=== PATIENT | female | born 1965 | race Caucasian/White ===

== ENCOUNTER 2016-07-08 11:03 | Inpatient (IN) | payer OTHER ==
[2016-07-08 12:15] VITALS: BMI 32.3
--- NOTE | 2016-07-08 14:24 | HP ---
COWS - Scale Resting Pulse: 2= [place] 101-120 Sweatin=Flushed/Facial Moisture Restless Observation: 3= Extraneous Movement Pupil Size: 2= Moderately Dilated Bone or Joint Aches: 2= Severe Diffuse Aches Runny Nose/ Eye Tearin= Runny Nose/Eyes GI Upset > 30mins: 3= Vomiting/Diarrhea Tremor Observation: 2= Slight Tremor Visible Yawning Observation: 2= >3x During Session Anxiety or Irritability: 2=Irritable/Anxious Goose Flesh Skin: 0=Smooth Skin COWS Score: 22 CIWA Score - CIWA Score Nausea/Vomitin Muscle Tremors: 3 Anxiety: 3 Agitation: 3 Paroxysmal Sweats: 2 Orientation: 0-Oriented Tacttile Disturbances: 2-Mild Itch/Numbness/Burn Auditory Disturbances: 2-Mild Harshness/Frighten Visual Disturbances: 2-Mild Sensitivity Headache: 2-Mild CIWA-Ar Total Score: 22 Admission ROS BHS - HPI Chief Complaint: I NEED HELP TO STOP USING HEROIN,ALCOHOL AND COCAINE Allergies/Adverse Reactions: Allergies Allergy/AdvReac Type Severity Reaction Status Date / Time Fish Containing Products Allergy Severe Hives Verified 07/08/16 13:04 No Known Drug Allergies Allergy Severe Verified 07/08/16 13:04 History of Present Illness: THIS 51 YEARS OLD FEMALE WITH HEROIN ALCOHOL COCAINE DEPENDENCE,WITHDRAWAL SYMPTOM,LAST DETOX 06/10/16 TO 06/16/16 SEIZURE SYNCOPE NICOTINE DEPENDENCE BIPOLAR DISORDER,SCHIZOPHRENIA LONGEST PERIOD OF SOBRIETY 5 YEARS TYPE 2 DM Exam Limitations: No Limitations - Ebola screening Have you traveled outside of the country in the last 21 days: No Have you had contact with anyone from an Ebola affected area: No Have you been sick,other than usual withdrawal symptoms: No Do you have a fever: No - Review of Systems Constitutional: Loss of Appetite, Malaise, Night Sweats, Changes in sleep, Weakness EENT: reports: Tearing, Nose Congestion Respiratory: reports: No Symptoms reported Cardiac: reports: Palpitations GI: reports: Diarrhea, Nausea, Vomiting, Abdominal cramping : reports: No Symptoms Reported Musculoskeletal: reports: Back Pain, Joint Pain, Muscle Pain, Neck Pain Integumentary: reports: Dryness Neuro: reports: Headache, Tremors Endocrine: reports: No Symptoms Reported Hematology: reports: No Symptoms Reported Psychiatric: reports: Orientated x3 (BIPOLAR DISORDER), Agitated, Depressed Patient History - Patient Medical History Hx Anemia: No Hx Asthma: Yes (Pt is on MDI) Hx Chronic Obstructive Pulmonary Disease (COPD): No Hx Cancer: No Hx Cardiac Disorders: No Hx Congestive Heart Failure: No Hx Hypertension: Yes (on meds.) Hx Hypercholesterolemia: No Hx Pacemaker: No HX Cerebrovascular Accident: No Hx Seizures: Yes (drug related last in 2006) Hx Dementia: No Hx Diabetes: Yes (Type II) Hx Gastrointestinal Disorders: No Hx Liver Disease: No Hx Genitourinary Disorders: No Hx Sexually Transmitted Disorders: Yes (Pt was tx for syphillis.) Hx Renal Disease (ESRD): No Hx Thyroid Disease: No Hx Human Immunodeficiency Virus (HIV): No (2016 last negative) Hx Hepatitis C: No Hx Depression: Yes Hx Suicide Attempt: Yes (Tried to cut wrist in 2014) Hx Bipolar Disorder: No Hx Schizophrenia: No Other Medical History: NO SUICIDAL,NO HOMICIDAL - Patient Surgical History Past Surgical History: Yes Hx Cholecystectomy: Yes Other Surgical History: Tubal ligation - PPD History Previous Implant?: Yes Documented Results: Negative w/proof Date: 06/12/16 Results: 0 mm PPD to be Administered?: No - Reproductive History Patient is a Female of Child Bearing Age (11 -55 yrs old): Yes Patient : No - Smoking Cessation Smoking history: Current every day smoker Have you smoked in the past 12 months: Yes Aproximately how many cigarettes per day: 5 Cigars Per Day: 0 Hx Chewing Tobacco Use: No Initiated information on smoking cessation: Yes 'Breaking Loose' booklet given: 07/08/16 - Substance & Tx. History Hx Alcohol Use: Yes Hx Substance Use: Yes Substance Use Type: Alcohol, Cocaine, Heroin Hx Substance Use Treatment: Yes ([facility] 06/10/16 TO 06/16/16) - Substances Abused Heroin Route: Inhalation Frequency: Daily Amount used: 30 bags Age of first use: 31 Date of Last Use: 07/07/16 Alcohol Route: Oral Frequency: Daily Amount used: 2 pints chris or cognac Age of first use: 21 Date of Last Use: 07/06/16 Crack Route: Smoking Frequency: Daily Amount used: $400 Age of first use: 20 Date of Last Use: 07/08/16 Family Disease History - Family Disease History Family History: Denies Admission Physical Exam BHS - Vital Signs Vital Signs: Vital Signs - 24 hr 07/08/16 12:12 Temperature 97 F L Pulse Rate 106 H Respiratory 19 Rate Blood Pressure 164/94 - Physical General Appearance: Yes: Moderate Distress, Tremorous, Irritable, Sweating, Anxious HEENTM: Yes: Hearing grossly Normal, Normal ENT Inspection, ISSAC, Pharynx Normal Respiratory: Yes: Lungs Clear, Normal Breath Sounds, No Respiratory Distress Neck: Yes: Supple, Trachea in good position Breast: Yes: Breast Exam Deferred Cardiology: Yes: Within Normal Limits, Regular Rhythm, Regular Rate, S1, S2 Abdominal: Yes: Within Normal Limits, Normal Bowel Sounds, Non Tender, Flat, Soft Genitourinary: Yes: Within Normal Limits Back: Yes: Muscle Spasm Musculoskeletal: Yes: Back pain, Joint Stiffness, Muscle Pain Extremities: Yes: Normal Range of Motion, Tremors Neurological: Yes: online marketer II-XII NML intact, Alert, Motor Strength 5/5, Normal Mood /Affect Integumentary: Yes: Dry Lymphatic: Yes: Within Normal Limits - Diagnostic (1) Insomnia Current Visit: No Status: Acute (2) Alcohol dependence with uncomplicated withdrawal Current Visit: No Status: Chronic (3) Asthma Current Visit: No Status: Chronic Qualifiers: Asthma complication type: uncomplicated (4) Cocaine dependence Current Visit: No Status: Chronic Qualifiers: Complication of substance-induced condition: with unspecified complication (5) DM2 (diabetes mellitus, type 2) Current Visit: No Status: Chronic Qualifiers: Chronic kidney disease stage: unspecified stage (6) Essential hypertension Current Visit: No Status: Chronic (7) Nicotine dependence Current Visit: No Status: Chronic Qualifiers: Nicotine product type: cigarettes Substance use status: uncomplicated Qualified Code(s): F17.210 - Nicotine dependence, cigarettes, uncomplicated (8) Opioid dependence with withdrawal Current Visit: No Status: Chronic (9) Seizure Current Visit: No Status: Chronic (10) Post traumatic stress disorder (PTSD) Current Visit: No Status: Suspected (11) Bipolar disorder Current Visit: Yes Status: Acute Cleared for Admission [facility] - Detox or Rehab [facility] Level of Care: Medically Managed Detox Regimen/Protocol: Methadone/Valium [facility] Breath Alcohol Content Breath Alcohol Content: 0 Urine Pregancy Test - Result Urine Test Results: Negative- NO Line Present Urine Drug Screen - Results Drug Screen Negative: No Urine Drug Screen Results: LOLLY-Cocaine, OPI-Opiates, BZO-Benzodiazepines, TCA- Tricyclic Antidepress
[2016-07-08] MEDS ORDERED: MAG HYDROX/AL HYDROX/SIMETH 30 ML UNIT-DOSE CUP PO PRN (14:41)
[2016-07-08] MEDS ORDERED: MENTHOL/PHENOL 1 EACH UD MM PRN (14:41)
[2016-07-08] MEDS ORDERED: P-EPHED 60MG/TRIPROLIDI 2.5MG TABLET PO PRN (14:41)
[2016-07-08] MEDS ORDERED: LOPERAMIDE HCL 2 MG CAPSULE PO PRN (14:41)
[2016-07-08] MEDS ORDERED: diphenhydrAMINE HCL 50 MG CAPSULE PO PRN (14:41)
[2016-07-08] MEDS ORDERED: IBUPROFEN 400 MG TABLET (FP) PO PRN (14:41)
[2016-07-08] MEDS ORDERED: diazePAM 5 MG TABLET PO ONE (14:48)
[2016-07-08] MEDS ORDERED: METHADONE HCL 10 MG TABLET (FOR DETOX USE ONLY) PO ONE ×2 (14:51→23:00)
[2016-07-08] MEDS: diazePAM 5 MG TABLET PO PRN (20:04)
[2016-07-08 21:33] LABS: URINE APPEARANCE CLOUDY; URINE BILIRUBIN NEGATIVE (NEGATIVE); URINE BLOOD NEGATIVE (NEGATIVE); URINE COLOR YELLOW; URINE GLUCOSE (UA) 1+ (NEGATIVE); URINE KETONE NEGATIVE (NEGATIVE); URINE NITRITE NEGATIVE (NEGATIVE); URINE UROBILINOGEN NEGATIVE E.U./dl (0.2-1.0)
[2016-07-08 21:38] LABS: URINE LEUK ESTERASE 1+ (NEGATIVE); URINE PROTEIN 1+ (NEGATIVE)
[2016-07-08 21:41] LABS: URINE BACTERIA RARE /hpf (NONE SEEN); URINE MUCUS RARE; URINE RBC 2 /hpf (0-3); URINE WBC 5 /hpf (3-5)
[2016-07-08] MEDS: THIAMINE HCL 100 MG TABLET (FP) PO SCH (22:14)
[2016-07-08] MEDS: diazePAM 5 MG TABLET PO SCH (22:14)
[2016-07-09] MEDS: diazePAM 5 MG TABLET PO PRN ×2 (03:34→10:07)
[2016-07-09] MEDS: MAGNESIUM HYDROX 2400MG/30ML ORAL SUSPENSION 30 ML CUP PO PRN (03:36)
[2016-07-09 05:17] LABS: HIV 1 & 2 AB NEGATIVE; HIV 1 AGp24 NEGATIVE
[2016-07-09] MEDS: guaiFENesin/D-METHORPHAN HB 10 ML UNIT-DOSE CUPS PO PRN (05:53)
[2016-07-09] MEDS: diazePAM 5 MG TABLET PO SCH ×3 (05:53→22:15)
[2016-07-09] MEDS: metFORMIN HCL 500 MG TABLET (FP) PO SCH (06:41)
--- NOTE | 2016-07-09 09:21 | EKG ---
Test Reason : Blood Pressure : / mmHG Vent. Rate : 096 BPM Atrial Rate : 096 BPM P-R Int : 142 ms QRS Dur : 088 ms QT Int : 370 ms P-R-T Axes : -08 041 023 degrees QTc Int : 467 ms UNUSUAL P AXIS, POSSIBLE ECTOPIC ATRIAL RHYTHM WHEN COMPARED WITH ECG OF 10-JUN-2016 17:28, NO SIGNIFICANT CHANGE WAS FOUND Confirmed by MARICRUZ BARRAZA MD ([id number]) on 07/09/2016 9:21:29 AM Referred By: Confirmed By:MARICRUZ BARRAZA MD
[2016-07-09] MEDS ORDERED: METHADONE HCL 10 MG TABLET (FOR DETOX USE ONLY) PO SCH (10:00)
[2016-07-09 10:01] LABS: MCH 28.3 pg (25.7-33.7); MCHC 33.4 g/dl (32.0-36.0); MEAN CELL VOLUME 84.6 fl (80-96); MEAN PLT VOLUME 7.8 fl (7.5-11.1); PLATELET COUNT 366 K/MM3 (134-434); RDW 14.5 % (11.6-15.6); WHITE BLOOD COUNT 7.7 K/mm3 (4.0-10.0)
[2016-07-09] MEDS: ASPIRIN 81 MG CHEWABLE TABLETS PO SCH (10:03)
[2016-07-09] MEDS: LISINOPRIL 10 MG TABLET (FP) PO SCH (10:03)
[2016-07-09] MEDS: PRENATAL VITAMINS W/ FOLIC ACID TABLET (FP) PO SCH (10:03)
[2016-07-09] MEDS: FLUTICASONE PROP 0.05% 16 GM NASAL SPRAY NS SCH (10:03)
--- NOTE | 2016-07-09 10:06 | PN ---
S CIWA - CIWA Score Nausea/Vomitin Muscle Tremors: 3 Anxiety: 3 Agitation: 3 Paroxysmal Sweats: 1-Minimal Palms Moist Orientation: 0-Oriented Tacttile Disturbances: 1-Very Mild Itch/Numbness Auditory Disturbances: 1-Very Mild Visual Disturbances: 1-Very Mild Sensitivity Headache: 2-Mild CIWA-Ar Total Score: 18 BHS COWS - Scale Resting Pulse: 2= [place] 101-120 Sweatin= Chills/Flushing Restless Observation: 3= Extraneous Movement Pupil Size: 1= Pupils >than Normal Bone or Joint Aches: 2= Severe Diffuse Aches Runny Nose/ Eye Tearin= Runny Nose/Eyes GI Upset > 30mins: 3= Vomiting/Diarrhea Tremor Observation of Outstretched Hands: 2= Slight Tremor Visible Yawning Observation: 1= 1-2x During Session Anxiety or Irritability: 2=Irritable/Anxious Goose Flesh Skin: 0=Smooth Skin COWS Score: 19 S Progress Note (SOAP) Subjective: ALERT,IRRITABLE,ANXIOUS,INTERRUPTED SLEEP,PAIN IN THE BODY AND BACK Objective: 07/09/16 10:03 Vital Signs Temperature 98.4 F 07/09/16 09:40 Pulse Rate 111 H 07/09/16 09:40 Respiratory Rate 16 07/09/16 09:40 Blood Pressure 119/72 07/09/16 09:40 O2 Sat by Pulse Oximetry (%) EKG NSR,NORMAL ECG Laboratory Last Values POC Glucometer 161 UNITS (()) 07/09/16 05:52 Urine Color Yellow 07/08/16 16:00 Urine Appearance Cloudy 07/08/16 16:00 Urine pH 5.0 (5.0-8.0) 07/08/16 16:00 Ur Specific [place] 1.027 (1.001-1.035) 07/08/16 16:00 Urine Protein 1+ (NEGATIVE) H 07/08/16 16:00 Urine Glucose (UA) 1+ (NEGATIVE) H 07/08/16 16:00 Urine Ketones Negative (NEGATIVE) 07/08/16 16:00 Urine Blood Negative (NEGATIVE) 07/08/16 16:00 Urine Nitrite Negative (NEGATIVE) 07/08/16 16:00 Urine Bilirubin Negative (NEGATIVE) 07/08/16 16:00 Urine Urobilinogen Negative E.U./dl (0.2-1.0) 07/08/16 16:00 Ur Leukocyte Esterase 1+ (NEGATIVE) H 07/08/16 16:00 Urine RBC 2 /hpf (0-3) 07/08/16 16:00 Urine WBC 5 /hpf (3-5) 07/08/16 16:00 Ur Epithelial Cells Moderate /hpf (FEW) 07/08/16 16:00 Urine Bacteria Rare /hpf (NONE SEEN) 07/08/16 16:00 Urine Mucus Rare 07/08/16 16:00 HIV 1&2 Antibody Screen Negative 07/08/16 13:00 HIV P24 Antigen Negative 07/08/16 13:00 LABS PENDING Assessment: 07/09/16 10:05 WITHDRAWAL SYMPTOM Plan: CONTINUE DETOX
--- NOTE | 2016-07-09 10:07 | PN ---
S Progress Note Note: ADDENDUM BGM IS 161,BGM MONITORING
[2016-07-09] MEDS: ALBUTEROL SO4 6.7 GM HFA INHALER IH PRN (10:09)
[2016-07-09 10:17] LABS: ALBUMIN 3.8 g/dl (3.4-5.0); ANION GAP 11 (8-16); CALCIUM 9.9 mg/dL (8.5-10.1); CO2 28 mmol/L (21-32); GLUCOSE,RANDOM 178 mg/dL (74-106); SGOT/AST 9 U/L (15-37); SGPT/ALT 16 U/L (12-78)
[2016-07-09 10:19] LABS: ALK PHOS 96 U/L (45-117); BILIRUBIN,TOTAL 0.3 mg/dL (0.2-1.0); CREATININE 0.8 mg/dL (0.55-1.02); TOT PROT 8.1 g/dl (6.4-8.2)
[2016-07-09] MEDS: DOCUSATE SODIUM 100 MG CAPSULE (FP) PO SCH ×2 (14:44→22:15)
[2016-07-09] MEDS: CYCLOBENZAPRINE HCL 10 MG TABLET (FP) PO PRN (14:44)
[2016-07-09] MEDS: HYDROCORTISONE 1% TOPICAL CREAM 30 GM TUBE TP SCH ×2 (14:45→22:16)
[2016-07-09] MEDS: MAGNESIUM CITRATE 300 ML BOTTLE PO PRN (14:48)
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
[2016-07-09] MEDS: hydrOXYzine PAMOATE 50 MG CAPSULE (FP) PO PRN (16:37)
[2016-07-09] MEDS: THIAMINE HCL 100 MG TABLET (FP) PO SCH (22:15)
[2016-07-09] MEDS: ZOLPIDEM TARTRATE 10 MG TABLET (PARK CARE ONLY) PO PRN (22:18)
[2016-07-10] MEDS: DOCUSATE SODIUM 100 MG CAPSULE (FP) PO SCH ×3 (05:56→22:31)
[2016-07-10] MEDS: diazePAM 5 MG TABLET PO PRN ×2 (05:58→15:37)
[2016-07-10] MEDS: guaiFENesin/D-METHORPHAN HB 10 ML UNIT-DOSE CUPS PO PRN ×2 (05:58→15:40)
[2016-07-10] MEDS: ALBUTEROL SO4 6.7 GM HFA INHALER IH PRN (06:00)
[2016-07-10] MEDS: HYDROCORTISONE 1% TOPICAL CREAM 30 GM TUBE TP SCH ×3 (07:33→22:31)
[2016-07-10] MEDS: metFORMIN HCL 500 MG TABLET (FP) PO SCH (07:34)
[2016-07-10] MEDS ORDERED: ONDANSETRON *ODT* 4 MG TABLET SL PRN (10:09)
[2016-07-10] MEDS: ASPIRIN 81 MG CHEWABLE TABLETS PO SCH (10:28)
[2016-07-10] MEDS: diazePAM 5 MG TABLET PO SCH ×2 (10:28→22:31)
[2016-07-10] MEDS: PRENATAL VITAMINS W/ FOLIC ACID TABLET (FP) PO SCH (10:28)
[2016-07-10] MEDS: FLUTICASONE PROP 0.05% 16 GM NASAL SPRAY NS SCH (10:29)
[2016-07-10] MEDS: METHADONE HCL 5 MG TABLET (FOR DETOX USE ONLY) PO SCH (10:29)
[2016-07-10] MEDS: LISINOPRIL 10 MG TABLET (FP) PO SCH (10:30)
[2016-07-10] MEDS: METHYL SALICYLATE/MENTHOL OINT 30 GM TUBE TP SCH ×2 (10:34→22:31)
[2016-07-10] MEDS: CYCLOBENZAPRINE HCL 10 MG TABLET (FP) PO PRN ×2 (10:37→22:35)
--- NOTE | 2016-07-10 14:26 | PN ---
[facility] CIWA - CIWA Score Nausea/Vomitin Muscle Tremors: 4-Moderate,w/Arms Extend Anxiety: 3 Agitation: 4-Moderately Restless Paroxysmal Sweats: 3 Orientation: 0-Oriented Tacttile Disturbances: 0-None Auditory Disturbances: 2-Mild Harshness/Frighten Visual Disturbances: 2-Mild Sensitivity Headache: 0-None Present CIWA-Ar Total Score: 21 S COWS - Scale Resting Pulse: 2= [place] 101-120 Sweatin= Chills/Flushing Restless Observation: 1= Difficult to Sit Still Pupil Size: 0= Normal to Room Light Bone or Joint Aches: 2= Severe Diffuse Aches Runny Nose/ Eye Tearin= Nasal Congestion GI Upset > 30mins: 2= Nausea/Diarrhea Tremor Observation of Outstretched Hands: 2= Slight Tremor Visible Yawning Observation: 1= 1-2x During Session Anxiety or Irritability: 2=Irritable/Anxious Goose Flesh Skin: 3=Piloerection COWS Score: 17 [facility] Progress Note (SOAP) Subjective: Nausea, Interrupted sleep, Tremors, Sweating, Body Aches. Objective: PT. A & O X 3, OBSERVED AMBULATING ON UNIT. 07/10/16 14:23 Vital Signs Temperature 96.5 F L 07/10/16 14:11 Pulse Rate 115 H 07/10/16 14:11 Respiratory Rate 18 07/10/16 14:11 Blood Pressure 133/83 07/10/16 14:11 O2 Sat by Pulse Oximetry (%) Laboratory Last Values WBC 7.7 K/mm3 (4.0-10.0) 07/09/16 06:00 RBC 4.96 M/mm3 (3.60-5.2) 07/09/16 06:00 Hgb 14.0 GM/dL (10.7-15.3) D 07/09/16 06:00 Hct 42.0 % (32.4-45.2) 07/09/16 06:00 MCV 84.6 fl (80-96) 07/09/16 06:00 MCHC 33.4 g/dl (32.0-36.0) 07/09/16 06:00 RDW 14.5 % (11.6-15.6) 07/09/16 06:00 Plt Count 366 K/MM3 (134-434) 07/09/16 06:00 MPV 7.8 fl (7.5-11.1) 07/09/16 06:00 Sodium 140 mmol/L (136-145) 07/09/16 06:00 Potassium 4.1 mmol/L (3.5-5.1) 07/09/16 06:00 Chloride 101 mmol/L (98-107) 07/09/16 06:00 Carbon Dioxide 28 mmol/L (21-32) 07/09/16 06:00 Anion Gap 11 (8-16) 07/09/16 06:00 BUN 14 mg/dL (7-18) D 07/09/16 06:00 Creatinine 0.8 mg/dL (0.55-1.02) 07/09/16 06:00 Creat Clearance w eGFR > 60 (>60) 07/09/16 06:00 POC Glucometer 224 UNITS (()) 07/10/16 11:46 Random Glucose 178 mg/dL (74-106) H D 07/09/16 06:00 Calcium 9.9 mg/dL (8.5-10.1) 07/09/16 06:00 Total Bilirubin 0.3 mg/dL (0.2-1.0) 07/09/16 06:00 AST 9 U/L (15-37) L D 07/09/16 06:00 ALT 16 U/L (12-78) 07/09/16 06:00 Alkaline Phosphatase 96 U/L (45-117) 07/09/16 06:00 Total Protein 8.1 g/dl (6.4-8.2) 07/09/16 06:00 Albumin 3.8 g/dl (3.4-5.0) 07/09/16 06:00 Urine Color Yellow 07/08/16 16:00 Urine Appearance Cloudy 07/08/16 16:00 Urine pH 5.0 (5.0-8.0) 07/08/16 16:00 Ur Specific [place] 1.027 (1.001-1.035) 07/08/16 16:00 Urine Protein 1+ (NEGATIVE) H 07/08/16 16:00 Urine Glucose (UA) 1+ (NEGATIVE) H 07/08/16 16:00 Urine Ketones Negative (NEGATIVE) 07/08/16 16:00 Urine Blood Negative (NEGATIVE) 07/08/16 16:00 Urine Nitrite Negative (NEGATIVE) 07/08/16 16:00 Urine Bilirubin Negative (NEGATIVE) 07/08/16 16:00 Urine Urobilinogen Negative E.U./dl (0.2-1.0) 07/08/16 16:00 Ur Leukocyte Esterase 1+ (NEGATIVE) H 07/08/16 16:00 Urine RBC 2 /hpf (0-3) 07/08/16 16:00 Urine WBC 5 /hpf (3-5) 07/08/16 16:00 Ur Epithelial Cells Moderate /hpf (FEW) 07/08/16 16:00 Urine Bacteria Rare /hpf (NONE SEEN) 07/08/16 16:00 Urine Mucus Rare 07/08/16 16:00 RPR Titer Nonreactive (NONREACTIVE) 07/09/16 06:00 HIV 1&2 Antibody Screen Negative 07/08/16 13:00 HIV P24 Antigen Negative 07/08/16 13:00 LABS NOTED. Assessment: 07/10/16 14:24 WITHDRAWAL SYMPTOMS. Plan: CONTINUE DETOX. PRN FLEXERIL FOR FOR BODY ACHES / MUSCLE SPASMS. PRN ZOFRAN FOR NAUSEA. ADVISED PATIENT TO FOLLOW-UP WITH [facility] / REHAB MEDICAL PROVIDER AFTER DISCHARGE FROM DETOX FOR GENERAL MEDICAL ASSESSMENT AND FOR ABNORMAL ADMISSION LAB VALUES.
[2016-07-10] MEDS ORDERED: INSULIN (NOVOLOG) ASPART 100 UNITS/ML 10ML VIAL ONE (16:34)
[2016-07-10] MEDS ORDERED: INSULIN (NOVOLOG) ASPART 100 UNITS/ML 10ML VIAL SQ ONE (18:37)
--- NOTE | 2016-07-10 19:30 | PN ---
S Progress Note Note: According to nurse BGM was 388 at 4:30PM now it's 221 without intervention. Cancel novolog 6 units sc stat
[2016-07-10] MEDS: hydrOXYzine PAMOATE 50 MG CAPSULE (FP) PO PRN (21:09)
[2016-07-10] MEDS: THIAMINE HCL 100 MG TABLET (FP) PO SCH (22:31)
[2016-07-10] MEDS: ZOLPIDEM TARTRATE 10 MG TABLET (PARK CARE ONLY) PO PRN (22:35)
[2016-07-11] MEDS: DOCUSATE SODIUM 100 MG CAPSULE (FP) PO SCH ×3 (06:03→22:18)
[2016-07-11] MEDS: diazePAM 5 MG TABLET PO PRN ×2 (06:07→12:48)
[2016-07-11] MEDS: CYCLOBENZAPRINE HCL 10 MG TABLET (FP) PO PRN ×2 (06:07→22:18)
[2016-07-11] MEDS: metFORMIN HCL 500 MG TABLET (FP) PO SCH (07:14)
[2016-07-11] MEDS: INSULIN SLIDING SCALE (NOVOLOG) 1 VIAL SQ SCH ×2 (07:15→18:09)
[2016-07-11] MEDS: HYDROCORTISONE 1% TOPICAL CREAM 30 GM TUBE TP SCH ×3 (07:15→22:19)
[2016-07-11] MEDS: MAGNESIUM HYDROX 2400MG/30ML ORAL SUSPENSION 30 ML CUP PO PRN (07:21)
[2016-07-11] MEDS: ASPIRIN 81 MG CHEWABLE TABLETS PO SCH (10:27)
[2016-07-11] MEDS: PRENATAL VITAMINS W/ FOLIC ACID TABLET (FP) PO SCH (10:27)
[2016-07-11] MEDS: METHADONE HCL 5 MG TABLET (FOR DETOX USE ONLY) PO SCH (10:28)
[2016-07-11] MEDS: METHYL SALICYLATE/MENTHOL OINT 30 GM TUBE TP SCH ×2 (10:28→22:19)
[2016-07-11] MEDS: FLUTICASONE PROP 0.05% 16 GM NASAL SPRAY NS SCH (10:29)
[2016-07-11] MEDS: LISINOPRIL 10 MG TABLET (FP) PO SCH (10:30)
[2016-07-11] MEDS: diazePAM 5 MG TABLET PO SCH ×2 (10:33→22:20)
--- NOTE | 2016-07-11 14:02 | PN ---
S Progress Note (SOAP) Subjective: Anxious, pain in arms (stated due to arthritis), interrupted sleep, sweating, constipation (no bm x 4 days), stomach ache, itching on arms (wants benadryl 50mg for itch, states hydrocortisone not working) Objective: 07/11/16 13:57 Last Vital Signs Temp Pulse Resp BP Pulse Ox 97.7 F 110 H 18 145/74 07/11/16 13:48 07/11/16 13:48 07/11/16 13:48 07/11/16 13:48 Laboratory Tests 07/08/16 07/08/16 07/08/16 13:00 13:21 16:00 WBC RBC Hgb Hct MCV MCHC RDW Plt Count MPV Sodium Potassium Chloride Carbon Dioxide Anion Gap BUN Creatinine Creat Clearance w eGFR POC Glucometer 189 Random Glucose Calcium Total Bilirubin AST ALT Alkaline Phosphatase Total Protein Albumin Urine Color Yellow Urine Appearance Cloudy Urine pH 5.0 Ur Specific [place] 1.027 Urine Protein 1+ H Urine Glucose (UA) 1+ H Urine Ketones Negative Urine Blood Negative Urine Nitrite Negative Urine Bilirubin Negative Urine Urobilinogen Negative Ur Leukocyte Esterase 1+ H Urine RBC 2 Urine WBC 5 Ur Epithelial Cells Moderate Urine Bacteria Rare Urine Mucus Rare RPR Titer HIV 1&2 Antibody Screen Negative HIV P24 Antigen Negative 07/09/16 07/09/16 07/09/16 05:52 06:00 06:00 WBC 7.7 RBC 4.96 Hgb 14.0 D Hct 42.0 MCV 84.6 MCHC 33.4 RDW 14.5 Plt Count 366 MPV 7.8 Sodium 140 Potassium 4.1 Chloride 101 Carbon Dioxide 28 Anion Gap 11 BUN 14 D Creatinine 0.8 Creat Clearance w eGFR > 60 POC Glucometer 161 Random Glucose 178 H D Calcium 9.9 Total Bilirubin 0.3 AST 9 L D ALT 16 Alkaline Phosphatase 96 Total Protein 8.1 Albumin 3.8 Urine Color Urine Appearance Urine pH Ur Specific [place] Urine Protein Urine Glucose (UA) Urine Ketones Urine Blood Urine Nitrite Urine Bilirubin Urine Urobilinogen Ur Leukocyte Esterase Urine RBC Urine WBC Ur Epithelial Cells Urine Bacteria Urine Mucus RPR Titer HIV 1&2 Antibody Screen HIV P24 Antigen 07/09/16 07/09/16 07/10/16 06:00 16:26 05:54 WBC RBC Hgb Hct MCV MCHC RDW Plt Count MPV Sodium Potassium Chloride Carbon Dioxide Anion Gap BUN Creatinine Creat Clearance w eGFR POC Glucometer 126 136 Random Glucose Calcium Total Bilirubin AST ALT Alkaline Phosphatase Total Protein Albumin Urine Color Urine Appearance Urine pH Ur Specific [place] Urine Protein Urine Glucose (UA) Urine Ketones Urine Blood Urine Nitrite Urine Bilirubin Urine Urobilinogen Ur Leukocyte Esterase Urine RBC Urine WBC Ur Epithelial Cells Urine Bacteria Urine Mucus RPR Titer Nonreactive HIV 1&2 Antibody Screen HIV P24 Antigen 07/10/16 07/10/16 07/10/16 11:46 16:19 19:19 WBC RBC Hgb Hct MCV MCHC RDW Plt Count MPV Sodium Potassium Chloride Carbon Dioxide Anion Gap BUN Creatinine Creat Clearance w eGFR POC Glucometer 224 388 221 Random Glucose Calcium Total Bilirubin AST ALT Alkaline Phosphatase Total Protein Albumin Urine Color Urine Appearance Urine pH Ur Specific [place] Urine Protein Urine Glucose (UA) Urine Ketones Urine Blood Urine Nitrite Urine Bilirubin Urine Urobilinogen Ur Leukocyte Esterase Urine RBC Urine WBC Ur Epithelial Cells Urine Bacteria Urine Mucus RPR Titer HIV 1&2 Antibody Screen HIV P24 Antigen 07/11/16 06:01 WBC RBC Hgb Hct MCV MCHC RDW Plt Count MPV Sodium Potassium Chloride Carbon Dioxide Anion Gap BUN Creatinine Creat Clearance w eGFR POC Glucometer 140 Random Glucose Calcium Total Bilirubin AST ALT Alkaline Phosphatase Total Protein Albumin Urine Color Urine Appearance Urine pH Ur Specific [place] Urine Protein Urine Glucose (UA) Urine Ketones Urine Blood Urine Nitrite Urine Bilirubin Urine Urobilinogen Ur Leukocyte Esterase Urine RBC Urine WBC Ur Epithelial Cells Urine Bacteria Urine Mucus RPR Titer HIV 1&2 Antibody Screen HIV P24 Antigen Labs noted Assessment: 07/11/16 13:59 Withdrawal symptoms c/o pruritus to arms c/o constipation, acute c/o arthritis in arms wants strong medication than motrin Plan: Continue detox Pruritus: benadryl 50mg PO x 1 dose, start lac hydrin lotion 12% BID to arms, continue hydrocortisone cream Acute constipation: encouraged to drink lots of water, dulcolax 10mg PO x 1 dose , continue colace 100mg PO qhs Arthritis in arms: d/c prn motrin, start naproxen 500mg PO BID, continue bengay ointment
[2016-07-11] MEDS ORDERED: diphenhydrAMINE HCL 50 MG CAPSULE PO ONE (14:30)
[2016-07-11] MEDS ORDERED: BISACODYL 5 MG TABLET.DR (FP) PO ONE ×2 (14:30→18:30)
[2016-07-11] MEDS ORDERED: INSULIN (NOVOLOG) ASPART 100 UNITS/ML 10ML VIAL ONE (17:40)
[2016-07-11] MEDS: ALBUTEROL SO4 6.7 GM HFA INHALER IH PRN (18:11)
[2016-07-11] MEDS: ZOLPIDEM TARTRATE 10 MG TABLET (PARK CARE ONLY) PO PRN (22:18)
[2016-07-11] MEDS: AMMONIUM LACTATE 12% LOTION 225 GM BOTTLE TP SCH (22:19)
[2016-07-11] MEDS: NAPROXEN 500 MG TABLET (FP) PO SCH (22:20)
[2016-07-11] MEDS: THIAMINE HCL 100 MG TABLET (FP) PO SCH (22:20)
[2016-07-12] MEDS: metFORMIN HCL 500 MG TABLET (FP) PO SCH (06:10)
[2016-07-12] MEDS: DOCUSATE SODIUM 100 MG CAPSULE (FP) PO SCH ×3 (06:11→22:25)
[2016-07-12] MEDS: HYDROCORTISONE 1% TOPICAL CREAM 30 GM TUBE TP SCH ×3 (06:11→22:26)
[2016-07-12] MEDS: hydrOXYzine PAMOATE 50 MG CAPSULE (FP) PO PRN ×2 (06:14→13:50)
[2016-07-12] MEDS: MAGNESIUM CITRATE 300 ML BOTTLE PO PRN (06:26)
[2016-07-12] MEDS: INSULIN SLIDING SCALE (NOVOLOG) 1 VIAL SQ SCH ×2 (06:27→17:05)
--- NOTE | 2016-07-12 08:54 | PN ---
Psychiatric Progress Note Vital Signs: Vital Signs Period Temp Pulse Resp BP Sys/Cedeno Pulse Ox Last 24 Hr 97.7 F-98.4 F 80-114 18-20 117-145/60-77 Date of Session: 07/12/16 Chief Complaint:: Gabapentin order HPI: Patient reports takijnhg prior to admission: Gabapentin 300mg po tid Current Medications: Active Medications Generic Name Dose Route Start Last Admin Trade Name Freq PRN Reason Stop Dose Admin Acetaminophen 650 mg 07/08/16 14:41 Tylenol - PO Q4H PRN FEVER OR PAIN Al Hydroxide/Mg Hydroxide 30 ml 07/08/16 14:41 Mylanta Oral Suspension - PO Q6H PRN DYSPEPSIA Albuterol Sulfate 2 puff 07/08/16 14:46 07/11/16 18:11 Ventolin Hfa Inhaler - IH 2 puff Q4H PRN Administration ASTHMA Aspirin 81 mg 07/09/16 10:00 07/11/16 10:27 Asa - PO 81 mg DAILY AYE Administration Cyclobenzaprine HCl 10 mg 07/09/16 10:11 07/11/16 22:18 Flexeril - PO 10 mg TID PRN Administration MUSCLE SPASMS Diazepam 5 mg 07/12/16 10:00 Valium - PO 07/12/16 10:01 DAILY AYE Diphenhydramine HCl 50 mg 07/08/16 14:41 07/08/16 22:14 Benadryl - PO 50 mg HSMR1 PRN Administration INSOMNIA Docusate Sodium 100 mg 07/09/16 14:00 07/12/16 06:11 Colace - PO 100 mg TID AYE Administration Eucalyptus/Menthol/Phenol/Sorbitol 1 each 07/08/16 14:41 Cepastat Lozenge - MM Q4H PRN SORE THROAT Fluticasone Propionate 2 spray 07/09/16 10:00 07/11/16 10:29 Flonase - NS 2 spray DAILY AYE Administration Gabapentin 300 mg 07/12/16 14:00 Neurontin - PO TID AYE Guaifenesin 10 ml 07/08/16 14:41 07/10/16 15:40 Robitussin Dm - PO 10 ml Q6H PRN Administration COUGH Hydrocortisone 1 applic 07/09/16 14:00 07/12/16 06:11 Hytone 1% Cream - TP 1 applic TID AYE Administration Hydroxyzine Pamoate 50 mg 07/08/16 14:41 07/12/16 06:14 Vistaril - PO 50 mg Q4H PRN Administration AGITATION Insulin Aspart 1 vial 07/11/16 07:00 07/12/16 06:27 Novolog Vial Sliding Scale - SQ Not Given BIDAC [facility] Protocol Lactic Acid 1 applic 07/11/16 22:00 07/11/16 22:19 Lac-Hydrin 12 TP 1 applic BID AYE Administration Lisinopril 10 mg 07/09/16 10:00 07/11/16 10:30 Prinivil PO 10 mg DAILY AYE Administration Loperamide HCl 4 mg 07/08/16 14:41 Imodium - PO Q6H PRN DIARRHEA Magnesium Citrate 300 ml 07/08/16 14:41 07/12/16 06:26 Citroma - PO 300 ml Q48H PRN Administration CONSTIPATION Magnesium Hydroxide 30 ml 07/08/16 14:41 07/11/16 07:21 Milk Of Magnesia - PO 30 ml DAILY PRN Administration CONSTIPATION Metformin HCl 500 mg 07/09/16 07:00 07/12/16 06:10 Glucophage - PO 500 mg DAILY@0700 AYE Administration Methadone HCl 10 mg 07/12/16 10:00 Dolophine - PO 07/12/16 10:01 DAILY AYE Methadone HCl 5 mg 07/13/16 06:00 Dolophine - PO 07/13/16 06:01 DAILY@0600 AYE Methyl Salicylate 1 applic 07/10/16 10:15 07/11/16 22:19 Osmar-Sorto - TP 1 applic BID AYE Administration Naproxen 500 mg 07/11/16 22:00 07/11/16 22:20 Naprosyn - PO 500 mg BID AYE Administration Ondansetron HCl 8 mg 07/10/16 10:09 Zofran Odt - SL Q8H PRN NAUSEA AND/OR VOMITING Multivit/Folic Acid/Iron 1 tab 07/09/16 10:00 07/11/16 10:27 Vitamins (Sjr) - PO 1 tab DAILY AYE Administration Pseudoephedrine/Triprolidine 1 combo 07/08/16 14:41 Actifed - PO TID PRN NASAL CONGESTION Thiamine HCl 100 mg 07/08/16 22:00 07/11/16 22:20 Vitamin B1 - PO 100 mg HS AYE Administration Zolpidem Tartrate 10 mg 07/09/16 16:15 07/11/16 22:18 Ambien - PO 07/12/16 16:14 10 mg HS PRN Administration INSOMNIA Medication(s) Change(s): Gabapentin 300mg po tid Mental Status Exam - Mental Status Exam Alert and Oriented to: Person Cognitive Function: Fair Patient Appearance: Unkempt Mood: Apprehensive Affect: Appropriate Patient Behavior: Cooperative Speech Pattern: Appropriate Voice Loudness: Normal Thought Process: Goal Oriented Thought Disorder: Being Controlled Hallucinations: Denies Suicidal Ideation: Denies Homicidal Ideation: Denies Insight/Judgement: Fair Sleep: Difficulty falling asleep Appetite: Weight gain Muscle strength/Tone: Normal Gait/Station: Normal Additional Comments: Gabapentin 300mg po tid Psychiatric Treatment Plan - Problem List (1) Alcohol dependence with uncomplicated withdrawal Current Visit: Yes (2) Cocaine dependence Current Visit: Yes Qualifiers: Complication of substance-induced condition: with unspecified complication (3) Nicotine dependence Current Visit: Yes Qualifiers: Nicotine product type: cigarettes Substance use status: uncomplicated Qualified Code(s): F17.210 - Nicotine dependence, cigarettes, uncomplicated (4) Opioid dependence with withdrawal Current Visit: Yes (5) Substance induced mood disorder Current Visit: Yes (6) Substance-induced anxiety disorder Current Visit: Yes (7) Bipolar disorder Current Visit: Yes (8) Anxiety and depression Current Visit: No Initial treatment plan: Gabapentin 300mg po tid
[2016-07-12] MEDS ORDERED: diazePAM 5 MG TABLET PO SCH (10:00)
[2016-07-12] MEDS ORDERED: METHADONE HCL 10 MG TABLET (FOR DETOX USE ONLY) PO SCH (10:00)
--- NOTE | 2016-07-12 10:20 | PN ---
S Progress Note (SOAP) Subjective: ALERT,IRRITABLE,ANXIOUS,INTERRUPTED SLEEP,CONSTIPATED Objective: 07/12/16 10:19 Vital Signs Temperature 98.1 F 07/12/16 09:41 Pulse Rate 116 H 07/12/16 09:41 Respiratory Rate 18 07/12/16 09:41 Blood Pressure 139/80 07/12/16 09:41 O2 Sat by Pulse Oximetry (%) Assessment: 07/12/16 10:19 WITHDRAWAL SYMPTOM Plan: CONTINUE DETOX,ENCOURAGE ORAL FLUID,BGM IS 129,BGM MONITORING,DISCHARGE IN AM
[2016-07-12] MEDS: PRENATAL VITAMINS W/ FOLIC ACID TABLET (FP) PO SCH (10:27)
[2016-07-12] MEDS: ASPIRIN 81 MG CHEWABLE TABLETS PO SCH (10:27)
[2016-07-12] MEDS: LISINOPRIL 10 MG TABLET (FP) PO SCH (10:28)
[2016-07-12] MEDS: NAPROXEN 500 MG TABLET (FP) PO SCH ×2 (10:29→22:25)
[2016-07-12] MEDS: METHYL SALICYLATE/MENTHOL OINT 30 GM TUBE TP SCH ×2 (10:30→23:40)
[2016-07-12] MEDS: AMMONIUM LACTATE 12% LOTION 225 GM BOTTLE TP SCH ×2 (10:30→22:55)
[2016-07-12] MEDS: FLUTICASONE PROP 0.05% 16 GM NASAL SPRAY NS SCH (10:31)
[2016-07-12] MEDS: guaiFENesin/D-METHORPHAN HB 10 ML UNIT-DOSE CUPS PO PRN (10:37)
[2016-07-12] MEDS ORDERED: SODIUM PHOSPHATE/NA BIPHOS 133 ML ENEMA PR ONE (11:18)
[2016-07-12] MEDS: CYCLOBENZAPRINE HCL 10 MG TABLET (FP) PO PRN ×2 (13:50→20:25)
[2016-07-12] MEDS: GABAPENTIN 300 MG CAPSULE (FP) PO SCH ×2 (15:11→22:25)
[2016-07-12] MEDS ORDERED: INSULIN (NOVOLOG) ASPART 100 UNITS/ML 10ML VIAL ONE (17:03)
[2016-07-12] MEDS: ACETAMINOPHEN 325 MG TABLET (FP) PO PRN (18:25)
[2016-07-12] MEDS: THIAMINE HCL 100 MG TABLET (FP) PO SCH (22:25)
[2016-07-12] MEDS ORDERED: ZOLPIDEM TARTRATE 10 MG TABLET (PARK CARE ONLY) ONE (22:30)
[2016-07-12] MEDS: ZOLPIDEM TARTRATE 10 MG TABLET (PARK CARE ONLY) PO PRN (22:30)
[2016-07-13] MEDS: GABAPENTIN 300 MG CAPSULE (FP) PO SCH (05:29)
[2016-07-13] MEDS: DOCUSATE SODIUM 100 MG CAPSULE (FP) PO SCH (05:29)
[2016-07-13] MEDS: ACETAMINOPHEN 325 MG TABLET (FP) PO PRN (05:31)
[2016-07-13] MEDS: guaiFENesin/D-METHORPHAN HB 10 ML UNIT-DOSE CUPS PO PRN (05:33)
[2016-07-13] MEDS: CYCLOBENZAPRINE HCL 10 MG TABLET (FP) PO PRN (05:45)
[2016-07-13] MEDS: hydrOXYzine PAMOATE 50 MG CAPSULE (FP) PO PRN (05:45)
[2016-07-13] MEDS ORDERED: METHADONE HCL 5 MG TABLET (FOR DETOX USE ONLY) PO SCH (06:00)
[2016-07-13] MEDS: HYDROCORTISONE 1% TOPICAL CREAM 30 GM TUBE TP SCH (07:29)
[2016-07-13] MEDS: metFORMIN HCL 500 MG TABLET (FP) PO SCH (07:29)
[2016-07-13] MEDS: INSULIN SLIDING SCALE (NOVOLOG) 1 VIAL SQ SCH (07:36)
--- NOTE | 2016-07-13 08:15 | PN ---
[facility] Progress Note (SOAP) Subjective: ALERT,NO COMPLAINT Objective: 07/13/16 08:11 Vital Signs Temperature 97.9 F 07/13/16 06:00 Pulse Rate 98 H 07/13/16 06:00 Respiratory Rate 18 07/13/16 06:00 Blood Pressure 117/78 07/13/16 06:00 O2 Sat by Pulse Oximetry (%) 07/13/16 08:15 07/13/16 08:15 BGM 147 Assessment: 07/13/16 08:15 07/13/16 08:15 DETOX COMPLETED,NO WITHDRAWAL SYMPTOM Plan: DISCHARGE TODAY,FOLLOW UP WITH AFTER CARE PROGRAM ARRANGEMENT
--- NOTE | 2016-07-13 08:20 | DS ---
[facility] Detox Discharge Summary Admission Date: 07/08/16 Discharge Date: 07/13/16 - History Present History: Alcohol Dependence, Cocaine Dependence, Opioid Dependence Additional Comments: FOLLOW UP WITH AFTER CARE PROGRAM [facility] Pertinent Past History: TYPE 2 DM HYPERTENSION SEIZURE NICOTINE DEPENDENCE BIPOLAR DISORDER PTSD - Physical Exam Results Vital Signs: Vital Signs Temperature 97.9 F 07/13/16 06:00 Pulse Rate 98 H 07/13/16 06:00 Respiratory Rate 18 07/13/16 06:00 Blood Pressure 117/78 07/13/16 06:00 O2 Sat by Pulse Oximetry (%) Pertinent Admission Physical Exam Findings: WITHDRAWAL SYMPTOM - Treatment Hospital Course: Detox Protocol Followed, Detoxed Safely, Responded well, Discharged Condition Good Patient has Accepted a Rehab Referral to: [facility] - Medication Discharge Medications: Ambulatory Orders Aspirin [ASA -] 81 mg PO DAILY 06/10/16 Zolpidem Tartrate [Ambien] 10 mg PO HS 06/10/16 Albuterol Sulfate Inhaler - [Ventolin HFA Inhaler -] 2 inh PO Q4H PRN #1 Fluticasone Prop 0.05% Nasal [Flonase -] 2 spray NS DAILY #1 spray 06/16/16 Lisinopril [Prinivil] 10 mg PO DAILY #30 tablet 06/16/16 Metformin HCl [Glucophage -] 500 mg PO DAILY #30 tablet 06/16/16 Cyclobenzaprine HCl [Flexeril 10 mg] 10 mg PO BID PRN 07/08/16 Salmeterol/Fluticasone [Advair 250Mcg/50Mcg] 1 inh PO BID 07/08/16 Gabapentin 300 mg PO TID #90 ml 07/12/16 Gabapentin [Neurontin -] 300 mg PO TID #90 tablet 07/12/16 - Diagnosis (1) Insomnia Current Visit: Yes Status: Acute (2) Alcohol dependence with uncomplicated withdrawal Current Visit: Yes Status: Acute (3) Asthma Current Visit: Yes Status: Chronic Qualifiers: Asthma complication type: uncomplicated (4) Cocaine dependence Current Visit: Yes Status: Acute Qualifiers: Complication of substance-induced condition: with unspecified complication (5) DM2 (diabetes mellitus, type 2) Current Visit: Yes Status: Chronic Qualifiers: Chronic kidney disease stage: unspecified stage (6) Essential hypertension Current Visit: Yes Status: Chronic (7) Nicotine dependence Current Visit: Yes Status: Acute Qualifiers: Nicotine product type: cigarettes Substance use status: uncomplicated Qualified Code(s): F17.210 - Nicotine dependence, cigarettes, uncomplicated (8) Opioid dependence with withdrawal Current Visit: Yes Status: Acute (9) Seizure Current Visit: No Status: Chronic (10) Post traumatic stress disorder (PTSD) Current Visit: Yes Status: Chronic (11) Bipolar disorder Current Visit: Yes Status: Chronic - AMA Did Patient Leave Against Medical Advice: No
[2016-07-13] MEDS ORDERED: diazePAM 5 MG TABLET ONE (09:24)
[2016-07-13 09:42] VITALS: BP 129/70; PULSE 121; TEMP 99.1
[2016-07-13] MEDS: ASPIRIN 81 MG CHEWABLE TABLETS PO SCH (10:17)
[2016-07-13] MEDS: METHYL SALICYLATE/MENTHOL OINT 30 GM TUBE TP SCH (10:17)
[2016-07-13] MEDS: LISINOPRIL 10 MG TABLET (FP) PO SCH (10:18)
[2016-07-13] MEDS: PRENATAL VITAMINS W/ FOLIC ACID TABLET (FP) PO SCH (10:18)
[2016-07-13] MEDS: NAPROXEN 500 MG TABLET (FP) PO SCH (10:18)
[2016-07-13] MEDS: AMMONIUM LACTATE 12% LOTION 225 GM BOTTLE TP SCH (10:19)
[2016-07-13] MEDS: FLUTICASONE PROP 0.05% 16 GM NASAL SPRAY NS SCH (10:20)
== END 2016-07-13 11:23 | disposition other institution (70) | DRG 773 ==
LOC: YASAS 11:03 → Y6N 14:11
PROVIDERS: ADMIT Internal Medicine; ATTEND Internal Medicine
PROC: HZ2ZZZZ Detoxification Services for Substance Abuse Treatment (ICD-10-PCS; principal; 2016-07-13)
DX: F11.23 Opioid dependence with withdrawal (principal); F10.230 Alcohol dependence with withdrawal, uncomplicated; F14.20 Cocaine dependence, uncomplicated; F31.9 Bipolar disorder, unspecified; F19.24 Other psychoactive substance dependence with psychoactive substance-induced mood disorder; F17.210 Nicotine dependence, cigarettes, uncomplicated; F43.10 Post-traumatic stress disorder, unspecified; G47.00 Insomnia, unspecified; I10 Essential (primary) hypertension; E11.9 Type 2 diabetes mellitus without complications; Z79.4 Long term (current) use of insulin; J45.909 Unspecified asthma, uncomplicated; Z86.69 Personal history of other diseases of the nervous system and sense organs
CPT/HCPCS: 36415; 80053; 81003; 81015; 85027; 86593; 87389; 93005; 93010

== ENCOUNTER 2016-07-13 11:33 | Inpatient (IN) | payer OTHER ==
[2016-07-13] MEDS ORDERED: PNEUMOC 13-VAL CONJ-DIP CRM/PF 0.5 ML DISP.SYRIN IM ONE (12:36)
[2016-07-13 12:38] VITALS: BMI 35.8
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
[2016-07-13] MEDS ORDERED: MAG HYDROX/AL HYDROX/SIMETH 30 ML UNIT-DOSE CUP PO PRN (14:43)
[2016-07-13] MEDS ORDERED: ACETAMINOPHEN 325 MG TABLET (FP) PO PRN (14:43)
[2016-07-13] MEDS ORDERED: LOPERAMIDE HCL 2 MG CAPSULE PO PRN (14:43)
[2016-07-13] MEDS ORDERED: P-EPHED 60MG/TRIPROLIDI 2.5MG TABLET PO PRN (14:43)
[2016-07-13] MEDS ORDERED: guaiFENesin/D-METHORPHAN HB 10 ML UNIT-DOSE CUPS PO PRN (14:43)
[2016-07-13] MEDS ORDERED: IBUPROFEN 400 MG TABLET (FP) PO PRN (14:43)
[2016-07-13] MEDS ORDERED: MAGNESIUM CITRATE 300 ML BOTTLE PO PRN (14:43)
[2016-07-13] MEDS ORDERED: ALBUTEROL SO4 6.7 GM HFA INHALER IH PRN (14:45)
--- NOTE | 2016-07-13 14:50 | HP ---
[facility] Rehab Assess/Revision - Admission History Admitted to Rehab from: [facility] Date of Admission to Rehab: 07/13/16 - Vital signs Vital Signs: Vital Signs Period Temp Pulse Resp BP Sys/Cedeno Pulse Ox Last 24 Hr 98.6 F 102 17 118/77 - Findings Detox History & Physical reviewed: Yes Concur with findings: Yes
[2016-07-13] MEDS ORDERED: INSULIN (NOVOLOG) ASPART 100 UNITS/ML 10ML VIAL ONE (16:55)
[2016-07-13] MEDS: INSULIN (NOVOLOG) ASPART 100 UNITS/ML 10ML VIAL SQ SCH (16:56)
[2016-07-13] MEDS: QUEtiapine FUMARATE 25 MG TABLET (FP) PO SCH (21:50)
[2016-07-13] MEDS: busPIRone HCL 5 MG TABLET PO SCH (21:50)
[2016-07-13] MEDS: GABAPENTIN 300 MG CAPSULE (FP) PO SCH (21:50)
[2016-07-13] MEDS: NAPROXEN 500 MG TABLET (FP) PO SCH (21:50)
[2016-07-13] MEDS: diphenhydrAMINE HCL 50 MG CAPSULE PO PRN (21:51)
[2016-07-13] MEDS: THIAMINE HCL 100 MG TABLET (FP) PO SCH (21:51)
[2016-07-13] MEDS: BUDESONIDE/FORMETEROL FUMARATE 80/4.5 mcg INHALER IH SCH (21:53)
[2016-07-13] MEDS: MAGNESIUM HYDROX 2400MG/30ML ORAL SUSPENSION 30 ML CUP PO PRN (22:17)
[2016-07-14] MEDS: metFORMIN HCL 500 MG TABLET (FP) PO SCH (06:40)
[2016-07-14] MEDS: busPIRone HCL 5 MG TABLET PO SCH ×3 (06:40→22:03)
[2016-07-14] MEDS: GABAPENTIN 300 MG CAPSULE (FP) PO SCH ×3 (06:40→22:03)
[2016-07-14] MEDS: INSULIN (NOVOLOG) ASPART 100 UNITS/ML 10ML VIAL SQ SCH ×2 (06:42→17:23)
[2016-07-14] MEDS ORDERED: PT OWN MED DRAWER 7, Y5N ONE ×3 (09:20→22:09)
[2016-07-14] MEDS: ASPIRIN 81 MG CHEWABLE TABLETS PO SCH (09:52)
[2016-07-14] MEDS: LISINOPRIL 10 MG TABLET (FP) PO SCH (09:52)
[2016-07-14] MEDS: PRENATAL VITAMINS W/ FOLIC ACID TABLET (FP) PO SCH (09:53)
[2016-07-14] MEDS: NAPROXEN 500 MG TABLET (FP) PO SCH ×2 (09:53→22:06)
[2016-07-14] MEDS: NICOTINE 7 MG/24 HOURS TOPICAL PATCH TD SCH (09:53)
[2016-07-14] MEDS: BUDESONIDE/FORMETEROL FUMARATE 80/4.5 mcg INHALER IH SCH ×2 (09:56→22:11)
[2016-07-14] MEDS ORDERED: PNEUMOCOCCAL 23 VACCINE 0.5 ML VIAL IM ONE (12:00)
[2016-07-14] MEDS ORDERED: INFLUENZA VACCINE 45 MCG/0.5 ML (MDV 16-17) IM ONE (12:00)
[2016-07-14] MEDS: LIDOCAINE 5% TOPICAL PATCH TP SCH (15:48)
[2016-07-14] MEDS ORDERED: INSULIN (NOVOLOG) ASPART 100 UNITS/ML 10ML VIAL ONE (18:07)
[2016-07-14] MEDS: THIAMINE HCL 100 MG TABLET (FP) PO SCH (22:03)
[2016-07-14] MEDS: QUEtiapine FUMARATE 25 MG TABLET (FP) PO SCH (22:03)
[2016-07-14] MEDS: DOCUSATE SODIUM 100 MG CAPSULE (FP) PO SCH (22:03)
[2016-07-14] MEDS: diphenhydrAMINE HCL 50 MG CAPSULE PO PRN (22:10)
[2016-07-15] MEDS: GABAPENTIN 300 MG CAPSULE (FP) PO SCH (06:59)
[2016-07-15] MEDS: metFORMIN HCL 500 MG TABLET (FP) PO SCH (06:59)
[2016-07-15] MEDS: busPIRone HCL 5 MG TABLET PO SCH (06:59)
[2016-07-15] MEDS: INSULIN (NOVOLOG) ASPART 100 UNITS/ML 10ML VIAL SQ SCH ×2 (07:00→17:05)
[2016-07-15] MEDS ORDERED: PT OWN MED DRAWER 7, Y5N ONE (08:43)
[2016-07-15] MEDS: LIDOCAINE 5% TOPICAL PATCH TP SCH (10:19)
[2016-07-15] MEDS: BUDESONIDE/FORMETEROL FUMARATE 80/4.5 mcg INHALER IH SCH ×2 (10:19→21:15)
[2016-07-15] MEDS: ASPIRIN 81 MG CHEWABLE TABLETS PO SCH (10:22)
[2016-07-15] MEDS: NAPROXEN 500 MG TABLET (FP) PO SCH ×2 (10:23→21:13)
[2016-07-15] MEDS: PRENATAL VITAMINS W/ FOLIC ACID TABLET (FP) PO SCH (10:23)
[2016-07-15] MEDS: DOCUSATE SODIUM 100 MG CAPSULE (FP) PO SCH ×2 (10:23→21:13)
[2016-07-15] MEDS: LISINOPRIL 10 MG TABLET (FP) PO SCH (10:23)
[2016-07-15] MEDS: NICOTINE 7 MG/24 HOURS TOPICAL PATCH TD SCH (10:24)
[2016-07-15] MEDS ORDERED: busPIRone HCL 10 MG TABLET (FP) PO SCH (11:09)
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
[2016-07-15] MEDS: hydrOXYzine PAMOATE 25 MG CAPSULE (FP) PO PRN ×2 (12:44→18:04)
[2016-07-15] MEDS: busPIRone HCL 10 MG TABLET (FP) PO SCH ×2 (13:32→21:13)
[2016-07-15] MEDS: FLUTICASONE PROP 0.05% 16 GM NASAL SPRAY NS SCH (14:25)
[2016-07-15] MEDS: METHYL SALICYLATE/MENTHOL OINT 30 GM TUBE TP SCH ×2 (14:30→21:14)
[2016-07-15] MEDS ORDERED: INSULIN (NOVOLOG) ASPART 100 UNITS/ML 10ML VIAL ONE (17:05)
[2016-07-15] MEDS: QUEtiapine FUMARATE 50 MG TABLET PO SCH (21:13)
[2016-07-15] MEDS: GABAPENTIN 400 MG CAPSULE (FP) PO SCH (21:13)
[2016-07-15] MEDS: THIAMINE HCL 100 MG TABLET (FP) PO SCH (21:15)
[2016-07-16] MEDS: busPIRone HCL 10 MG TABLET (FP) PO SCH ×3 (06:59→21:30)
[2016-07-16] MEDS: GABAPENTIN 400 MG CAPSULE (FP) PO SCH ×3 (06:59→21:30)
[2016-07-16] MEDS: metFORMIN HCL 500 MG TABLET (FP) PO SCH (07:00)
[2016-07-16] MEDS: INSULIN (NOVOLOG) ASPART 100 UNITS/ML 10ML VIAL SQ SCH ×2 (07:00→17:27)
[2016-07-16] MEDS ORDERED: INSULIN (NOVOLOG) ASPART 100 UNITS/ML 10ML VIAL ONE (07:03)
[2016-07-16] MEDS: LIDOCAINE 5% TOPICAL PATCH TP SCH (10:03)
[2016-07-16] MEDS: NAPROXEN 500 MG TABLET (FP) PO SCH ×2 (10:04→21:29)
[2016-07-16] MEDS: DOCUSATE SODIUM 100 MG CAPSULE (FP) PO SCH ×2 (10:05→21:30)
[2016-07-16] MEDS: FLUTICASONE PROP 0.05% 16 GM NASAL SPRAY NS SCH (10:05)
[2016-07-16] MEDS: PRENATAL VITAMINS W/ FOLIC ACID TABLET (FP) PO SCH (10:05)
[2016-07-16] MEDS: ASPIRIN 81 MG CHEWABLE TABLETS PO SCH (10:05)
[2016-07-16] MEDS: METHYL SALICYLATE/MENTHOL OINT 30 GM TUBE TP SCH ×2 (10:05→21:29)
[2016-07-16] MEDS: NICOTINE 7 MG/24 HOURS TOPICAL PATCH TD SCH (10:06)
[2016-07-16] MEDS: BUDESONIDE/FORMETEROL FUMARATE 80/4.5 mcg INHALER IH SCH ×2 (10:06→21:28)
[2016-07-16] MEDS: LISINOPRIL 10 MG TABLET (FP) PO SCH (10:06)
[2016-07-16] MEDS: hydrOXYzine PAMOATE 25 MG CAPSULE (FP) PO PRN ×2 (10:08→15:36)
[2016-07-16] MEDS: NICOTINE POLACRILEX 2 MG GUM BUC PRN (10:58)
[2016-07-16] MEDS ORDERED: PT OWN MED DRAWER 7, Y5N ONE ×2 (13:04→19:29)
[2016-07-16] MEDS: QUEtiapine FUMARATE 50 MG TABLET PO SCH (21:30)
[2016-07-16] MEDS: THIAMINE HCL 100 MG TABLET (FP) PO SCH (21:30)
[2016-07-17] MEDS: metFORMIN HCL 500 MG TABLET (FP) PO SCH (06:40)
[2016-07-17] MEDS: busPIRone HCL 10 MG TABLET (FP) PO SCH ×3 (06:40→21:23)
[2016-07-17] MEDS: GABAPENTIN 400 MG CAPSULE (FP) PO SCH ×3 (06:40→21:23)
[2016-07-17] MEDS: INSULIN (NOVOLOG) ASPART 100 UNITS/ML 10ML VIAL SQ SCH ×2 (07:22→17:12)
[2016-07-17] MEDS: PRENATAL VITAMINS W/ FOLIC ACID TABLET (FP) PO SCH (10:04)
[2016-07-17] MEDS: LISINOPRIL 10 MG TABLET (FP) PO SCH (10:04)
[2016-07-17] MEDS: ASPIRIN 81 MG CHEWABLE TABLETS PO SCH (10:04)
[2016-07-17] MEDS: NAPROXEN 500 MG TABLET (FP) PO SCH ×2 (10:04→21:23)
[2016-07-17] MEDS: DOCUSATE SODIUM 100 MG CAPSULE (FP) PO SCH ×2 (10:04→21:23)
[2016-07-17] MEDS: LIDOCAINE 5% TOPICAL PATCH TP SCH (10:05)
[2016-07-17] MEDS: NICOTINE 7 MG/24 HOURS TOPICAL PATCH TD SCH (10:05)
[2016-07-17] MEDS: FLUTICASONE PROP 0.05% 16 GM NASAL SPRAY NS SCH (10:06)
[2016-07-17] MEDS: BUDESONIDE/FORMETEROL FUMARATE 80/4.5 mcg INHALER IH SCH ×2 (10:06→21:20)
[2016-07-17] MEDS: METHYL SALICYLATE/MENTHOL OINT 30 GM TUBE TP SCH ×2 (10:06→21:19)
[2016-07-17] MEDS: hydrOXYzine PAMOATE 25 MG CAPSULE (FP) PO PRN ×2 (10:10→18:45)
[2016-07-17] MEDS: NICOTINE POLACRILEX 2 MG GUM BUC PRN (10:11)
[2016-07-17] MEDS: THIAMINE HCL 100 MG TABLET (FP) PO SCH (21:19)
[2016-07-17] MEDS: QUEtiapine FUMARATE 50 MG TABLET PO SCH (21:23)
[2016-07-18] MEDS: busPIRone HCL 10 MG TABLET (FP) PO SCH ×3 (06:17→21:20)
[2016-07-18] MEDS: metFORMIN HCL 500 MG TABLET (FP) PO SCH (06:17)
[2016-07-18] MEDS: GABAPENTIN 400 MG CAPSULE (FP) PO SCH ×3 (06:17→21:20)
[2016-07-18] MEDS: INSULIN (NOVOLOG) ASPART 100 UNITS/ML 10ML VIAL SQ SCH ×2 (07:14→16:57)
[2016-07-18] MEDS ORDERED: INSULIN (NOVOLOG) ASPART 100 UNITS/ML 10ML VIAL ONE (08:07)
[2016-07-18] MEDS ORDERED: PT OWN MED DRAWER 7, Y5N ONE (08:46)
[2016-07-18] MEDS: BUDESONIDE/FORMETEROL FUMARATE 80/4.5 mcg INHALER IH SCH ×2 (10:12→21:22)
[2016-07-18] MEDS: LIDOCAINE 5% TOPICAL PATCH TP SCH (10:12)
[2016-07-18] MEDS: FLUTICASONE PROP 0.05% 16 GM NASAL SPRAY NS SCH (10:12)
[2016-07-18] MEDS: hydrOXYzine PAMOATE 25 MG CAPSULE (FP) PO PRN ×3 (10:14→22:41)
[2016-07-18] MEDS: DOCUSATE SODIUM 100 MG CAPSULE (FP) PO SCH ×2 (10:14→21:20)
[2016-07-18] MEDS: ASPIRIN 81 MG CHEWABLE TABLETS PO SCH (10:14)
[2016-07-18] MEDS: METHYL SALICYLATE/MENTHOL OINT 30 GM TUBE TP SCH ×2 (10:14→21:22)
[2016-07-18] MEDS: NAPROXEN 500 MG TABLET (FP) PO SCH ×2 (10:14→21:20)
[2016-07-18] MEDS: LISINOPRIL 10 MG TABLET (FP) PO SCH (10:15)
[2016-07-18] MEDS: PRENATAL VITAMINS W/ FOLIC ACID TABLET (FP) PO SCH (10:15)
[2016-07-18] MEDS: NICOTINE 7 MG/24 HOURS TOPICAL PATCH TD SCH (10:16)
[2016-07-18] MEDS: NICOTINE POLACRILEX 2 MG GUM BUC PRN (14:01)
[2016-07-18] MEDS ORDERED: diphenhydrAMINE HCL 25 MG CAPSULE (FP) PO PRN (17:46)
[2016-07-18] MEDS: COLLOIDAL OATMEAL 1 BAR EACH TP PRN (17:54)
[2016-07-18] MEDS: QUEtiapine FUMARATE 50 MG TABLET PO SCH (21:20)
[2016-07-18] MEDS: THIAMINE HCL 100 MG TABLET (FP) PO SCH (21:20)
[2016-07-19] MEDS: GABAPENTIN 400 MG CAPSULE (FP) PO SCH ×3 (07:12→21:23)
[2016-07-19] MEDS: busPIRone HCL 10 MG TABLET (FP) PO SCH ×3 (07:13→21:23)
[2016-07-19] MEDS: metFORMIN HCL 500 MG TABLET (FP) PO SCH (07:15)
[2016-07-19] MEDS: INSULIN (NOVOLOG) ASPART 100 UNITS/ML 10ML VIAL SQ SCH ×2 (07:52→17:04)
[2016-07-19] MEDS ORDERED: INSULIN (NOVOLOG) ASPART 100 UNITS/ML 10ML VIAL ONE (07:55)
[2016-07-19] MEDS ORDERED: PT OWN MED DRAWER 7, Y5N ONE (08:55)
[2016-07-19] MEDS: BUDESONIDE/FORMETEROL FUMARATE 80/4.5 mcg INHALER IH SCH ×2 (10:11→21:25)
[2016-07-19] MEDS: FLUTICASONE PROP 0.05% 16 GM NASAL SPRAY NS SCH (10:11)
[2016-07-19] MEDS: LIDOCAINE 5% TOPICAL PATCH TP SCH ×2 (10:12→18:10)
[2016-07-19] MEDS: PRENATAL VITAMINS W/ FOLIC ACID TABLET (FP) PO SCH (10:13)
[2016-07-19] MEDS: LISINOPRIL 10 MG TABLET (FP) PO SCH (10:13)
[2016-07-19] MEDS: METHYL SALICYLATE/MENTHOL OINT 30 GM TUBE TP SCH ×2 (10:13→21:26)
[2016-07-19] MEDS: DOCUSATE SODIUM 100 MG CAPSULE (FP) PO SCH ×2 (10:13→21:23)
[2016-07-19] MEDS: NAPROXEN 500 MG TABLET (FP) PO SCH ×2 (10:13→21:23)
[2016-07-19] MEDS: ASPIRIN 81 MG CHEWABLE TABLETS PO SCH (10:13)
[2016-07-19] MEDS: NICOTINE 7 MG/24 HOURS TOPICAL PATCH TD SCH (10:14)
[2016-07-19] MEDS: hydrOXYzine PAMOATE 25 MG CAPSULE (FP) PO PRN ×2 (10:15→18:10)
[2016-07-19] MEDS: MENTHOL/PHENOL 1 EACH UD MM PRN (18:11)
[2016-07-19] MEDS: MAGNESIUM HYDROX 2400MG/30ML ORAL SUSPENSION 30 ML CUP PO PRN (18:12)
[2016-07-19] MEDS: QUEtiapine FUMARATE 50 MG TABLET PO SCH (21:23)
[2016-07-19] MEDS: THIAMINE HCL 100 MG TABLET (FP) PO SCH (21:24)
[2016-07-19] MEDS: diphenhydrAMINE HCL 50 MG CAPSULE PO PRN (21:26)
[2016-07-20] MEDS: GABAPENTIN 400 MG CAPSULE (FP) PO SCH ×3 (06:12→21:14)
[2016-07-20] MEDS: busPIRone HCL 10 MG TABLET (FP) PO SCH ×3 (06:12→21:14)
[2016-07-20] MEDS: hydrOXYzine PAMOATE 25 MG CAPSULE (FP) PO PRN ×3 (06:15→19:02)
[2016-07-20] MEDS: INSULIN (NOVOLOG) ASPART 100 UNITS/ML 10ML VIAL SQ SCH ×2 (06:41→16:46)
[2016-07-20] MEDS: metFORMIN HCL 500 MG TABLET (FP) PO SCH (06:41)
[2016-07-20] MEDS: ASPIRIN 81 MG CHEWABLE TABLETS PO SCH (10:13)
[2016-07-20] MEDS: FLUTICASONE PROP 0.05% 16 GM NASAL SPRAY NS SCH (10:13)
[2016-07-20] MEDS: DOCUSATE SODIUM 100 MG CAPSULE (FP) PO SCH ×2 (10:13→21:14)
[2016-07-20] MEDS: METHYL SALICYLATE/MENTHOL OINT 30 GM TUBE TP SCH ×2 (10:13→21:15)
[2016-07-20] MEDS: LIDOCAINE 5% TOPICAL PATCH TP SCH (10:14)
[2016-07-20] MEDS: LISINOPRIL 10 MG TABLET (FP) PO SCH (10:15)
[2016-07-20] MEDS: NAPROXEN 500 MG TABLET (FP) PO SCH ×2 (10:15→21:14)
[2016-07-20] MEDS: PRENATAL VITAMINS W/ FOLIC ACID TABLET (FP) PO SCH (10:15)
[2016-07-20] MEDS: BUDESONIDE/FORMETEROL FUMARATE 80/4.5 mcg INHALER IH SCH ×2 (10:15→21:15)
[2016-07-20] MEDS: NICOTINE 7 MG/24 HOURS TOPICAL PATCH TD SCH (10:16)
[2016-07-20] MEDS: NICOTINE POLACRILEX 2 MG GUM BUC PRN (10:17)
[2016-07-20] MEDS: MENTHOL/PHENOL 1 EACH UD MM PRN (13:21)
[2016-07-20] MEDS ORDERED: INSULIN (NOVOLOG) ASPART 100 UNITS/ML 10ML VIAL ONE (16:48)
[2016-07-20] MEDS ORDERED: PT OWN MED DRAWER 7, Y5N ONE (20:14)
[2016-07-20] MEDS: THIAMINE HCL 100 MG TABLET (FP) PO SCH (21:14)
[2016-07-20] MEDS: QUEtiapine FUMARATE 50 MG TABLET PO SCH (21:14)
[2016-07-20] MEDS: diphenhydrAMINE HCL 50 MG CAPSULE PO PRN (21:14)
[2016-07-21] MEDS: hydrOXYzine PAMOATE 25 MG CAPSULE (FP) PO PRN ×2 (06:36→10:15)
[2016-07-21] MEDS: metFORMIN HCL 500 MG TABLET (FP) PO SCH (06:36)
[2016-07-21] MEDS: GABAPENTIN 400 MG CAPSULE (FP) PO SCH ×3 (06:37→21:25)
[2016-07-21] MEDS: busPIRone HCL 10 MG TABLET (FP) PO SCH ×3 (06:37→21:25)
[2016-07-21] MEDS ORDERED: INSULIN (NOVOLOG) ASPART 100 UNITS/ML 10ML VIAL ONE ×2 (07:07→22:51)
[2016-07-21] MEDS: INSULIN (NOVOLOG) ASPART 100 UNITS/ML 10ML VIAL SQ SCH ×2 (07:55→17:13)
[2016-07-21] MEDS: METHYL SALICYLATE/MENTHOL OINT 30 GM TUBE TP SCH ×2 (10:09→21:26)
[2016-07-21] MEDS: ASPIRIN 81 MG CHEWABLE TABLETS PO SCH (10:09)
[2016-07-21] MEDS: NAPROXEN 500 MG TABLET (FP) PO SCH ×2 (10:09→21:25)
[2016-07-21] MEDS: DOCUSATE SODIUM 100 MG CAPSULE (FP) PO SCH ×2 (10:09→21:25)
[2016-07-21] MEDS: LISINOPRIL 10 MG TABLET (FP) PO SCH (10:10)
[2016-07-21] MEDS: NICOTINE 7 MG/24 HOURS TOPICAL PATCH TD SCH (10:10)
[2016-07-21] MEDS: LIDOCAINE 5% TOPICAL PATCH TP SCH (10:11)
[2016-07-21] MEDS: FLUTICASONE PROP 0.05% 16 GM NASAL SPRAY NS SCH (10:12)
[2016-07-21] MEDS: PRENATAL VITAMINS W/ FOLIC ACID TABLET (FP) PO SCH (10:15)
[2016-07-21] MEDS: BUDESONIDE/FORMETEROL FUMARATE 80/4.5 mcg INHALER IH SCH ×2 (10:17→21:24)
[2016-07-21] MEDS ORDERED: PT OWN MED DRAWER 7, Y5N ONE (10:18)
[2016-07-21] MEDS: NICOTINE POLACRILEX 2 MG GUM BUC PRN (14:52)
[2016-07-21] MEDS ORDERED: CITALOPRAM HYDROBROMIDE 20 MG TABLET (FP) PO ONE (15:41)
[2016-07-21] MEDS: CITALOPRAM HYDROBROMIDE 20 MG TABLET (FP) PO SCH (16:02)
--- NOTE | 2016-07-21 16:06 | PN ---
Psychiatric Progress Note Vital Signs: Vital Signs Period Temp Pulse Resp BP Sys/Cedeno Pulse Ox Last 24 Hr 97.3 F 98-109 18-18 134-135/80-82 Date of Session: 07/21/16 Chief Complaint:: Tommy depressed,anxious,Seroquel makes me feel shaky. HPI: Patient addressed Opioid,Cocaine and Alcohol dependence comorbid with Substance induced mood disorder. Current Medications: Active Medications Generic Name Dose Route Start Last Admin Trade Name Freq PRN Reason Stop Dose Admin Acetaminophen 650 mg 07/13/16 14:43 07/17/16 18:47 Tylenol - PO 650 mg Q4H PRN Administration FEVER OR PAIN Al Hydroxide/Mg Hydroxide 30 ml 07/13/16 14:43 Mylanta Oral Suspension - PO Q6H PRN DYSPEPSIA Albuterol Sulfate 2 puff 07/13/16 14:45 Ventolin Hfa Inhaler - IH Q4H PRN ASTHMA Aspirin 81 mg 07/14/16 10:00 07/21/16 10:09 Asa - PO 81 mg DAILY AYE Administration Budesonide/Formoterol Fumarate 2 puff 07/13/16 22:00 07/21/16 10:17 Symbicort 80/4.5mcg - IH 2 inhaler BID AYE Administration Buspirone HCl 10 mg 07/15/16 14:00 07/21/16 14:50 Buspar - PO 10 mg TID AYE Administration Citalopram Hydrobromide 20 mg 07/21/16 15:45 Celexa - PO DAILY AYE Colloidal Oatmeal 1 applic 07/18/16 17:46 07/18/16 17:54 Aveeno Soap - TP 1 applic DAILY PRN Administration HYGEINE Diphenhydramine HCl 50 mg 07/13/16 14:43 07/20/16 21:14 Benadryl - PO 50 mg HSMR1 PRN Administration FOR ITCHING Diphenhydramine HCl 25 mg 07/18/16 17:46 07/18/16 17:54 Benadryl - PO 25 mg Q6H PRN Administration FOR ITCHING Docusate Sodium 100 mg 07/14/16 22:00 07/21/16 10:09 Colace - PO 100 mg BID AYE Administration Eucalyptus/Menthol/Phenol/Sorbitol 1 each 07/13/16 14:43 07/20/16 13:21 Cepastat Lozenge - MM 1 each Q4H PRN Administration SORE THROAT Fluticasone Propionate 2 spray 07/15/16 13:15 07/21/16 10:12 Flonase - NS 2 sprays DAILY AYE Administration Gabapentin 400 mg 07/15/16 22:00 07/21/16 14:50 Neurontin - PO 400 mg TID AYE Administration Guaifenesin 10 ml 07/13/16 14:43 07/16/16 15:36 Robitussin Dm - PO 10 ml Q6H PRN Administration COUGH Hydroxyzine Pamoate 25 mg 07/15/16 11:12 07/21/16 10:15 Vistaril - PO 25 mg Q4H PRN Administration ANXIETY Insulin Aspart 0 units 07/13/16 16:30 07/21/16 07:55 Novolog Vial SQ 2 units BIDAC AYE Administration Protocol Lidocaine 3 patch 07/19/16 15:15 07/21/16 10:11 Lidoderm Patch - TP 3 patch DAILY AYE Administration Lisinopril 10 mg 07/14/16 10:00 07/21/16 10:10 Prinivil PO 10 mg DAILY AYE Administration Loperamide HCl 4 mg 07/13/16 14:43 Imodium - PO Q6H PRN DIARRHEA Magnesium Hydroxide 30 ml 07/13/16 14:43 07/19/16 18:12 Milk Of Magnesia - PO 30 ml DAILY PRN Administration CONSTIPATION Metformin HCl 500 mg 07/14/16 07:00 07/21/16 06:36 Glucophage - PO 500 mg ACBK AYE Administration Methyl Salicylate 1 applic 07/15/16 13:55 07/21/16 10:09 Osmar-Sorto - TP 1 applic BID AYE Administration Mirtazapine 15 mg 07/21/16 22:00 Remeron - PO HS AYE Naproxen 500 mg 07/13/16 22:00 07/21/16 10:09 Naprosyn - PO 500 mg BID AYE Administration Nicotine 7 mg 07/14/16 10:00 07/21/16 10:10 Nicoderm Patch - TD Not Given DAILY AYE Nicotine Polacrilex 2 mg 07/13/16 14:43 07/21/16 14:52 Nicorette Gum - BUC 2 mg Q2H PRN Administration NICOTINE REPLACEMENT RX Multivit/Folic Acid/Iron 1 tab 04/12/17 10:00 07/21/16 10:15 Vitamins (Sjr) - PO 1 tab DAILY AYE Administration Pseudoephedrine/Triprolidine 1 combo 07/13/16 14:43 07/16/16 17:30 Actifed - PO 1 combo TID PRN Administration NASAL CONGESTION Thiamine HCl 100 mg 07/13/16 22:00 07/20/16 21:14 Vitamin B1 - PO 100 mg HS AYE Administration Current Side Effect: No Lab tests ordered: No Lab tests reviewed: Yes Provider note:: Chart was revuewed.Attending admission notes appreciated.Patient was seen.She addressed side effects from Seroquel(body shakes,drowsiness).Patient also admits depressed mood and sleep difficulties.Psychoeducation has been provided ,properties of Celexa and Remeron has been discussed with the patient including side effects profile and benefits.D/C Seroquel,Start Celexa 20 mg po daily,Remeron 15 mg po hs. Supportive therapy provided. Total face to face time:: 35 Mental Status Exam - Mental Status Exam Alert and Oriented to: Time, Place, Person Cognitive Function: Grossly Intact Patient Appearance: Well Groomed Mood: Anxious, Apprehensive Affect: Mood Congruent, Labile Patient Behavior: Cooperative Speech Pattern: Clear Voice Loudness: Normal Thought Process: Goal Oriented Thought Disorder: Being Controlled Hallucinations: Denies Suicidal Ideation: Denies Homicidal Ideation: Denies Insight/Judgement: Fair Sleep: Difficulty falling asleep Appetite: Good Muscle strength/Tone: Normal Gait/Station: Normal Psychiatric Treatment Plan - Problem List (1) Opioid dependence Current Visit: Yes (2) Alcohol dependence with uncomplicated withdrawal Current Visit: Yes (3) Cocaine dependence Current Visit: Yes Qualifiers: Complication of substance-induced condition: with unspecified complication (4) Nicotine dependence Current Visit: Yes Qualifiers: Nicotine product type: cigarettes Substance use status: uncomplicated Qualified Code(s): F17.210 - Nicotine dependence, cigarettes, uncomplicated (5) Substance induced mood disorder Current Visit: Yes
[2016-07-21] MEDS: THIAMINE HCL 100 MG TABLET (FP) PO SCH (21:23)
[2016-07-21] MEDS: diphenhydrAMINE HCL 50 MG CAPSULE PO PRN (21:25)
[2016-07-21] MEDS: MIRTAZAPINE 15 MG TABLET (FP) PO SCH (21:25)
[2016-07-21] MEDS ORDERED: INSULIN DETEMIR 100 UNITS/ML MDV SQ ONE (22:52)
[2016-07-22] MEDS: GABAPENTIN 400 MG CAPSULE (FP) PO SCH ×3 (06:19→21:16)
[2016-07-22] MEDS: metFORMIN HCL 500 MG TABLET (FP) PO SCH (06:19)
[2016-07-22] MEDS: busPIRone HCL 10 MG TABLET (FP) PO SCH ×3 (06:19→21:16)
[2016-07-22] MEDS: INSULIN (NOVOLOG) ASPART 100 UNITS/ML 10ML VIAL SQ SCH ×2 (06:20→16:58)
[2016-07-22] MEDS ORDERED: INSULIN (NOVOLOG) ASPART 100 UNITS/ML 10ML VIAL ONE (06:20)
[2016-07-22] MEDS: LISINOPRIL 10 MG TABLET (FP) PO SCH (10:14)
[2016-07-22] MEDS: ASPIRIN 81 MG CHEWABLE TABLETS PO SCH (10:14)
[2016-07-22] MEDS: BUDESONIDE/FORMETEROL FUMARATE 80/4.5 mcg INHALER IH SCH ×2 (10:14→21:17)
[2016-07-22] MEDS: FLUTICASONE PROP 0.05% 16 GM NASAL SPRAY NS SCH (10:14)
[2016-07-22] MEDS: NAPROXEN 500 MG TABLET (FP) PO SCH ×2 (10:14→21:16)
[2016-07-22] MEDS: DOCUSATE SODIUM 100 MG CAPSULE (FP) PO SCH ×2 (10:14→21:16)
[2016-07-22] MEDS: CITALOPRAM HYDROBROMIDE 20 MG TABLET (FP) PO SCH (10:14)
[2016-07-22] MEDS: LIDOCAINE 5% TOPICAL PATCH TP SCH (10:15)
[2016-07-22] MEDS: METHYL SALICYLATE/MENTHOL OINT 30 GM TUBE TP SCH ×2 (10:18→21:18)
[2016-07-22] MEDS: PRENATAL VITAMINS W/ FOLIC ACID TABLET (FP) PO SCH (10:18)
[2016-07-22] MEDS: NICOTINE 7 MG/24 HOURS TOPICAL PATCH TD SCH (10:18)
[2016-07-22] MEDS: NICOTINE POLACRILEX 2 MG GUM BUC PRN (10:19)
[2016-07-22] MEDS: hydrOXYzine PAMOATE 25 MG CAPSULE (FP) PO PRN (11:57)
[2016-07-22] MEDS: THIAMINE HCL 100 MG TABLET (FP) PO SCH (21:16)
[2016-07-22] MEDS: MIRTAZAPINE 15 MG TABLET (FP) PO SCH (21:16)
[2016-07-22] MEDS: diphenhydrAMINE HCL 50 MG CAPSULE PO PRN (21:17)
[2016-07-23] MEDS ORDERED: PT OWN MED DRAWER 7, Y5N ONE (05:49)
[2016-07-23] MEDS: busPIRone HCL 10 MG TABLET (FP) PO SCH ×3 (06:20→21:20)
[2016-07-23] MEDS: GABAPENTIN 400 MG CAPSULE (FP) PO SCH ×3 (06:20→21:20)
[2016-07-23] MEDS: metFORMIN HCL 500 MG TABLET (FP) PO SCH (06:20)
[2016-07-23] MEDS: COLLOIDAL OATMEAL 1 BAR EACH TP PRN (06:24)
[2016-07-23] MEDS: INSULIN (NOVOLOG) ASPART 100 UNITS/ML 10ML VIAL SQ SCH ×2 (07:44→16:58)
[2016-07-23] MEDS ORDERED: INSULIN (NOVOLOG) ASPART 100 UNITS/ML 10ML VIAL ONE (07:50)
[2016-07-23] MEDS: LISINOPRIL 10 MG TABLET (FP) PO SCH (09:55)
[2016-07-23] MEDS: CITALOPRAM HYDROBROMIDE 20 MG TABLET (FP) PO SCH (09:55)
[2016-07-23] MEDS: NAPROXEN 500 MG TABLET (FP) PO SCH ×2 (09:55→21:20)
[2016-07-23] MEDS: DOCUSATE SODIUM 100 MG CAPSULE (FP) PO SCH ×2 (09:55→21:22)
[2016-07-23] MEDS: LIDOCAINE 5% TOPICAL PATCH TP SCH (09:56)
[2016-07-23] MEDS: BUDESONIDE/FORMETEROL FUMARATE 80/4.5 mcg INHALER IH SCH ×2 (09:56→21:21)
[2016-07-23] MEDS: ASPIRIN 81 MG CHEWABLE TABLETS PO SCH (09:56)
[2016-07-23] MEDS: FLUTICASONE PROP 0.05% 16 GM NASAL SPRAY NS SCH (09:56)
[2016-07-23] MEDS: PRENATAL VITAMINS W/ FOLIC ACID TABLET (FP) PO SCH (09:56)
[2016-07-23] MEDS: NICOTINE 7 MG/24 HOURS TOPICAL PATCH TD SCH (09:57)
[2016-07-23] MEDS: METHYL SALICYLATE/MENTHOL OINT 30 GM TUBE TP SCH ×2 (09:57→21:22)
[2016-07-23] MEDS: hydrOXYzine PAMOATE 25 MG CAPSULE (FP) PO PRN (18:27)
[2016-07-23] MEDS: THIAMINE HCL 100 MG TABLET (FP) PO SCH (21:20)
[2016-07-23] MEDS: MIRTAZAPINE 15 MG TABLET (FP) PO SCH (21:21)
[2016-07-23] MEDS: diphenhydrAMINE HCL 50 MG CAPSULE PO PRN (21:21)
[2016-07-24] MEDS: metFORMIN HCL 500 MG TABLET (FP) PO SCH (06:26)
[2016-07-24] MEDS: busPIRone HCL 10 MG TABLET (FP) PO SCH ×3 (06:26→21:17)
[2016-07-24] MEDS: INSULIN (NOVOLOG) ASPART 100 UNITS/ML 10ML VIAL SQ SCH ×2 (06:26→16:48)
[2016-07-24] MEDS: GABAPENTIN 400 MG CAPSULE (FP) PO SCH ×3 (06:26→21:17)
[2016-07-24] MEDS ORDERED: INSULIN (NOVOLOG) ASPART 100 UNITS/ML 10ML VIAL ONE ×2 (07:36→17:10)
[2016-07-24] MEDS: ASPIRIN 81 MG CHEWABLE TABLETS PO SCH (10:01)
[2016-07-24] MEDS: CITALOPRAM HYDROBROMIDE 20 MG TABLET (FP) PO SCH (10:01)
[2016-07-24] MEDS: PRENATAL VITAMINS W/ FOLIC ACID TABLET (FP) PO SCH (10:01)
[2016-07-24] MEDS: BUDESONIDE/FORMETEROL FUMARATE 80/4.5 mcg INHALER IH SCH ×2 (10:01→21:16)
[2016-07-24] MEDS: METHYL SALICYLATE/MENTHOL OINT 30 GM TUBE TP SCH ×2 (10:01→21:17)
[2016-07-24] MEDS: DOCUSATE SODIUM 100 MG CAPSULE (FP) PO SCH ×2 (10:02→21:17)
[2016-07-24] MEDS ORDERED: PT OWN MED DRAWER 7, Y5N ONE (10:04)
[2016-07-24] MEDS: FLUTICASONE PROP 0.05% 16 GM NASAL SPRAY NS SCH (10:04)
[2016-07-24] MEDS: LIDOCAINE 5% TOPICAL PATCH TP SCH (10:04)
[2016-07-24] MEDS: NAPROXEN 500 MG TABLET (FP) PO SCH ×2 (10:05→21:17)
[2016-07-24] MEDS: NICOTINE 7 MG/24 HOURS TOPICAL PATCH TD SCH (10:05)
[2016-07-24] MEDS: LISINOPRIL 10 MG TABLET (FP) PO SCH (10:06)
[2016-07-24] MEDS: NICOTINE POLACRILEX 2 MG GUM BUC PRN (10:06)
[2016-07-24] MEDS: MIRTAZAPINE 15 MG TABLET (FP) PO SCH (21:16)
[2016-07-24] MEDS: THIAMINE HCL 100 MG TABLET (FP) PO SCH (21:17)
[2016-07-24] MEDS: diphenhydrAMINE HCL 50 MG CAPSULE PO PRN (21:17)
[2016-07-25] MEDS: GABAPENTIN 400 MG CAPSULE (FP) PO SCH ×3 (06:19→21:27)
[2016-07-25] MEDS: busPIRone HCL 10 MG TABLET (FP) PO SCH ×3 (06:19→21:27)
[2016-07-25] MEDS: metFORMIN HCL 500 MG TABLET (FP) PO SCH (06:20)
[2016-07-25] MEDS: INSULIN (NOVOLOG) ASPART 100 UNITS/ML 10ML VIAL SQ SCH ×2 (06:21→17:12)
[2016-07-25] MEDS ORDERED: INSULIN (NOVOLOG) ASPART 100 UNITS/ML 10ML VIAL ONE (06:35)
[2016-07-25] MEDS: FLUTICASONE PROP 0.05% 16 GM NASAL SPRAY NS SCH (10:02)
[2016-07-25] MEDS: LIDOCAINE 5% TOPICAL PATCH TP SCH (10:02)
[2016-07-25] MEDS: BUDESONIDE/FORMETEROL FUMARATE 80/4.5 mcg INHALER IH SCH ×2 (10:02→22:29)
[2016-07-25] MEDS: DOCUSATE SODIUM 100 MG CAPSULE (FP) PO SCH ×2 (10:03→21:27)
[2016-07-25] MEDS: ASPIRIN 81 MG CHEWABLE TABLETS PO SCH (10:03)
[2016-07-25] MEDS: METHYL SALICYLATE/MENTHOL OINT 30 GM TUBE TP SCH ×2 (10:04→22:28)
[2016-07-25] MEDS: PRENATAL VITAMINS W/ FOLIC ACID TABLET (FP) PO SCH (10:04)
[2016-07-25] MEDS: CITALOPRAM HYDROBROMIDE 20 MG TABLET (FP) PO SCH (10:04)
[2016-07-25] MEDS: NAPROXEN 500 MG TABLET (FP) PO SCH ×2 (10:04→21:27)
[2016-07-25] MEDS: LISINOPRIL 10 MG TABLET (FP) PO SCH (10:05)
[2016-07-25] MEDS: NICOTINE 7 MG/24 HOURS TOPICAL PATCH TD SCH (10:05)
[2016-07-25] MEDS: hydrOXYzine PAMOATE 25 MG CAPSULE (FP) PO PRN (15:55)
[2016-07-25] MEDS ORDERED: PT OWN MED DRAWER 7, Y5N ONE (17:45)
[2016-07-25] MEDS: THIAMINE HCL 100 MG TABLET (FP) PO SCH (21:27)
[2016-07-25] MEDS: diphenhydrAMINE HCL 50 MG CAPSULE PO PRN (21:28)
[2016-07-25] MEDS: MIRTAZAPINE 15 MG TABLET (FP) PO SCH (22:29)
[2016-07-26] MEDS: INSULIN (NOVOLOG) ASPART 100 UNITS/ML 10ML VIAL SQ SCH ×2 (06:27→16:54)
[2016-07-26] MEDS ORDERED: INSULIN (NOVOLOG) ASPART 100 UNITS/ML 10ML VIAL ONE (06:27)
[2016-07-26] MEDS: busPIRone HCL 10 MG TABLET (FP) PO SCH ×3 (06:28→22:01)
[2016-07-26] MEDS: metFORMIN HCL 500 MG TABLET (FP) PO SCH (06:28)
[2016-07-26] MEDS: GABAPENTIN 400 MG CAPSULE (FP) PO SCH ×3 (06:28→22:02)
[2016-07-26] MEDS: NAPROXEN 500 MG TABLET (FP) PO SCH ×2 (10:13→22:01)
[2016-07-26] MEDS: CITALOPRAM HYDROBROMIDE 20 MG TABLET (FP) PO SCH (10:13)
[2016-07-26] MEDS: ASPIRIN 81 MG CHEWABLE TABLETS PO SCH (10:13)
[2016-07-26] MEDS: FLUTICASONE PROP 0.05% 16 GM NASAL SPRAY NS SCH (10:14)
[2016-07-26] MEDS: BUDESONIDE/FORMETEROL FUMARATE 80/4.5 mcg INHALER IH SCH ×2 (10:14→22:02)
[2016-07-26] MEDS: LISINOPRIL 10 MG TABLET (FP) PO SCH (10:14)
[2016-07-26] MEDS: DOCUSATE SODIUM 100 MG CAPSULE (FP) PO SCH ×2 (10:14→22:01)
[2016-07-26] MEDS: LIDOCAINE 5% TOPICAL PATCH TP SCH (10:14)
[2016-07-26] MEDS: METHYL SALICYLATE/MENTHOL OINT 30 GM TUBE TP SCH ×2 (10:15→22:03)
[2016-07-26] MEDS: NICOTINE 7 MG/24 HOURS TOPICAL PATCH TD SCH (10:15)
[2016-07-26] MEDS: PRENATAL VITAMINS W/ FOLIC ACID TABLET (FP) PO SCH (10:15)
[2016-07-26] MEDS: NICOTINE POLACRILEX 2 MG GUM BUC PRN (10:17)
[2016-07-26] MEDS: diphenhydrAMINE HCL 50 MG CAPSULE PO PRN (22:01)
[2016-07-26] MEDS: THIAMINE HCL 100 MG TABLET (FP) PO SCH (22:02)
[2016-07-26] MEDS ORDERED: PT OWN MED DRAWER 7, Y5N ONE (22:46)
[2016-07-27] MEDS: INSULIN (NOVOLOG) ASPART 100 UNITS/ML 10ML VIAL SQ SCH ×2 (06:38→16:56)
[2016-07-27] MEDS: metFORMIN HCL 500 MG TABLET (FP) PO SCH (06:40)
[2016-07-27] MEDS: busPIRone HCL 10 MG TABLET (FP) PO SCH ×3 (06:40→21:33)
[2016-07-27] MEDS: GABAPENTIN 400 MG CAPSULE (FP) PO SCH ×3 (06:40→21:33)
[2016-07-27] MEDS: BUDESONIDE/FORMETEROL FUMARATE 80/4.5 mcg INHALER IH SCH ×2 (10:08→21:33)
[2016-07-27] MEDS: METHYL SALICYLATE/MENTHOL OINT 30 GM TUBE TP SCH ×2 (10:08→21:33)
[2016-07-27] MEDS: FLUTICASONE PROP 0.05% 16 GM NASAL SPRAY NS SCH (10:08)
[2016-07-27] MEDS: LIDOCAINE 5% TOPICAL PATCH TP SCH (10:08)
[2016-07-27] MEDS: DOCUSATE SODIUM 100 MG CAPSULE (FP) PO SCH ×2 (10:09→21:33)
[2016-07-27] MEDS: LISINOPRIL 10 MG TABLET (FP) PO SCH (10:09)
[2016-07-27] MEDS: CITALOPRAM HYDROBROMIDE 20 MG TABLET (FP) PO SCH (10:09)
[2016-07-27] MEDS: PRENATAL VITAMINS W/ FOLIC ACID TABLET (FP) PO SCH (10:09)
[2016-07-27] MEDS: NICOTINE 7 MG/24 HOURS TOPICAL PATCH TD SCH (10:10)
[2016-07-27] MEDS: NAPROXEN 500 MG TABLET (FP) PO SCH ×2 (10:10→21:33)
[2016-07-27] MEDS: ASPIRIN 81 MG CHEWABLE TABLETS PO SCH (10:10)
[2016-07-27] MEDS ORDERED: PT OWN MED DRAWER 7, Y5N ONE (12:25)
[2016-07-27] MEDS ORDERED: INSULIN (NOVOLOG) ASPART 100 UNITS/ML 10ML VIAL ONE (16:34)
[2016-07-27] MEDS: hydrOXYzine PAMOATE 25 MG CAPSULE (FP) PO PRN (16:59)
[2016-07-27] MEDS: diphenhydrAMINE HCL 50 MG CAPSULE PO PRN (21:32)
[2016-07-27] MEDS: THIAMINE HCL 100 MG TABLET (FP) PO SCH (21:32)
[2016-07-28] MEDS: GABAPENTIN 400 MG CAPSULE (FP) PO SCH ×3 (06:20→21:16)
[2016-07-28] MEDS: metFORMIN HCL 500 MG TABLET (FP) PO SCH (06:20)
[2016-07-28] MEDS: busPIRone HCL 10 MG TABLET (FP) PO SCH ×3 (06:20→21:17)
[2016-07-28] MEDS ORDERED: INSULIN (NOVOLOG) ASPART 100 UNITS/ML 10ML VIAL ONE ×3 (06:21→23:15)
[2016-07-28] MEDS: INSULIN (NOVOLOG) ASPART 100 UNITS/ML 10ML VIAL SQ SCH ×2 (06:21→17:06)
[2016-07-28] MEDS: METHYL SALICYLATE/MENTHOL OINT 30 GM TUBE TP SCH ×2 (09:56→21:18)
[2016-07-28] MEDS: LISINOPRIL 10 MG TABLET (FP) PO SCH (09:57)
[2016-07-28] MEDS: ASPIRIN 81 MG CHEWABLE TABLETS PO SCH (09:57)
[2016-07-28] MEDS: CITALOPRAM HYDROBROMIDE 20 MG TABLET (FP) PO SCH (09:57)
[2016-07-28] MEDS: NICOTINE 7 MG/24 HOURS TOPICAL PATCH TD SCH (09:58)
[2016-07-28] MEDS: NAPROXEN 500 MG TABLET (FP) PO SCH ×2 (09:58→21:17)
[2016-07-28] MEDS: DOCUSATE SODIUM 100 MG CAPSULE (FP) PO SCH ×2 (09:58→21:16)
[2016-07-28] MEDS: BUDESONIDE/FORMETEROL FUMARATE 80/4.5 mcg INHALER IH SCH ×2 (09:59→21:17)
[2016-07-28] MEDS: NICOTINE POLACRILEX 2 MG GUM BUC PRN (10:01)
[2016-07-28] MEDS: LIDOCAINE 5% TOPICAL PATCH TP SCH (10:01)
[2016-07-28] MEDS: PRENATAL VITAMINS W/ FOLIC ACID TABLET (FP) PO SCH (10:01)
[2016-07-28] MEDS: MENTHOL/PHENOL 1 EACH UD MM PRN (10:01)
[2016-07-28] MEDS: FLUTICASONE PROP 0.05% 16 GM NASAL SPRAY NS SCH (10:04)
--- NOTE | 2016-07-28 13:09 | PN ---
Psychiatric Progress Note Vital Signs: Vital Signs Period Temp Pulse Resp BP Sys/Cedeno Pulse Ox Last 24 Hr 98 F 99-107 18-18 125-142/77-92 Date of Session: 07/28/16 Chief Complaint:: Tommy still nervious,sleep is still a problem. HPI: Patient addressed Opioid,Cocaine and Alcohol dependence comorbid with Substance induced mood disorder. Current Medications: Active Medications Generic Name Dose Route Start Last Admin Trade Name Freq PRN Reason Stop Dose Admin Acetaminophen 650 mg 07/13/16 14:43 07/17/16 18:47 Tylenol - PO 650 mg Q4H PRN Administration FEVER OR PAIN Al Hydroxide/Mg Hydroxide 30 ml 07/13/16 14:43 Mylanta Oral Suspension - PO Q6H PRN DYSPEPSIA Albuterol Sulfate 2 puff 07/13/16 14:45 07/25/16 22:30 Ventolin Hfa Inhaler - IH 2 puff Q4H PRN Administration ASTHMA Aspirin 81 mg 07/14/16 10:00 07/28/16 09:57 Asa - PO 81 mg DAILY AYE Administration Budesonide/Formoterol Fumarate 2 puff 07/13/16 22:00 07/28/16 09:59 Symbicort 80/4.5mcg - IH 2 inhaler BID AYE Administration Buspirone HCl 10 mg 07/15/16 14:00 07/28/16 06:20 Buspar - PO 10 mg TID AYE Administration Citalopram Hydrobromide 20 mg 07/21/16 15:45 07/28/16 09:57 Celexa - PO 20 mg DAILY AYE Administration Colloidal Oatmeal 1 applic 07/18/16 17:46 07/23/16 06:24 Aveeno Soap - TP 1 applic DAILY PRN Administration HYGEINE Diphenhydramine HCl 50 mg 07/13/16 14:43 07/27/16 21:32 Benadryl - PO 50 mg HSMR1 PRN Administration FOR ITCHING Diphenhydramine HCl 25 mg 07/18/16 17:46 07/18/16 17:54 Benadryl - PO 25 mg Q6H PRN Administration FOR ITCHING Docusate Sodium 100 mg 07/14/16 22:00 07/28/16 09:58 Colace - PO 100 mg BID AYE Administration Eucalyptus/Menthol/Phenol/Sorbitol 1 each 07/13/16 14:43 07/28/16 10:01 Cepastat Lozenge - MM 1 each Q4H PRN Administration SORE THROAT Fluticasone Propionate 2 spray 07/15/16 13:15 07/28/16 10:04 Flonase - NS 2 sprays DAILY AYE Administration Gabapentin 400 mg 07/15/16 22:00 07/28/16 06:20 Neurontin - PO 400 mg TID AYE Administration Guaifenesin 10 ml 07/13/16 14:43 07/16/16 15:36 Robitussin Dm - PO 10 ml Q6H PRN Administration COUGH Hydroxyzine Pamoate 25 mg 07/15/16 11:12 07/27/16 16:59 Vistaril - PO 25 mg Q4H PRN Administration ANXIETY Insulin Aspart 0 units 07/13/16 16:30 07/28/16 06:21 Novolog Vial SQ 2 units BIDAC AYE Administration Protocol Lidocaine 3 patch 07/19/16 15:15 07/28/16 10:01 Lidoderm Patch - TP 3 patch DAILY AYE Administration Lisinopril 10 mg 07/14/16 10:00 07/28/16 09:57 Prinivil PO 10 mg DAILY AYE Administration Loperamide HCl 4 mg 07/13/16 14:43 Imodium - PO Q6H PRN DIARRHEA Magnesium Hydroxide 30 ml 07/13/16 14:43 07/19/16 18:12 Milk Of Magnesia - PO 30 ml DAILY PRN Administration CONSTIPATION Metformin HCl 500 mg 07/14/16 07:00 07/28/16 06:20 Glucophage - PO 500 mg ACBK AYE Administration Methyl Salicylate 1 applic 07/15/16 13:55 07/28/16 09:56 Osmar-Sorto - TP 1 applic BID AYE Administration Naproxen 500 mg 07/13/16 22:00 07/28/16 09:58 Naprosyn - PO 500 mg BID AYE Administration Nicotine 7 mg 07/14/16 10:00 07/28/16 09:58 Nicoderm Patch - TD Not Given DAILY AYE Nicotine Polacrilex 2 mg 07/13/16 14:43 07/28/16 10:01 Nicorette Gum - BUC 2 mg Q2H PRN Administration NICOTINE REPLACEMENT RX Multivit/Folic Acid/Iron 1 tab 07/14/16 10:00 07/28/16 10:01 Vitamins (Sjr) - PO Not Given DAILY AYE Pseudoephedrine/Triprolidine 1 combo 07/13/16 14:43 07/16/16 17:30 Actifed - PO 1 combo TID PRN Administration NASAL CONGESTION Thiamine HCl 100 mg 07/13/16 22:00 07/27/16 21:32 Vitamin B1 - PO 100 mg HS AYE Administration Current Side Effect: No Lab tests ordered: No Lab tests reviewed: Yes Provider note:: Patient was seen in my office,chart was revuewed,Patient addressed sleeping difficulties along with mood instability.Properies of Seroquel has been discussed with the patient including benefits,side effects and dose adjustment .Seroquel 150 mg po hs will restarted tonight,Benadryl 50 mg po hs will be adjusted to 100 mg po hs. Supportive therapy provided. Total face to face time:: 30 Mental Status Exam - Mental Status Exam Alert and Oriented to: Time, Place, Person Cognitive Function: Grossly Intact Patient Appearance: Well Groomed Mood: Anxious Affect: Mood Congruent, Labile Patient Behavior: Restless, Distractible, Cooperative Speech Pattern: Clear Voice Loudness: Normal Thought Process: Goal Oriented Thought Disorder: Not Present Hallucinations: Denies Suicidal Ideation: Denies Homicidal Ideation: Denies Insight/Judgement: Fair Sleep: Fair Appetite: Good Muscle strength/Tone: Normal Gait/Station: Normal Psychiatric Treatment Plan - Problem List (1) Opioid dependence Current Visit: Yes (2) Alcohol dependence with uncomplicated withdrawal Current Visit: Yes (3) Cocaine dependence Current Visit: Yes Qualifiers: Complication of substance-induced condition: with unspecified complication (4) Nicotine dependence Current Visit: Yes Qualifiers: Nicotine product type: cigarettes Substance use status: uncomplicated Qualified Code(s): F17.210 - Nicotine dependence, cigarettes, uncomplicated (5) Substance induced mood disorder Current Visit: Yes
[2016-07-28] MEDS: THIAMINE HCL 100 MG TABLET (FP) PO SCH (21:16)
[2016-07-28] MEDS: diphenhydrAMINE HCL 25 MG CAPSULE (FP) PO PRN (21:18)
[2016-07-28] MEDS: QUEtiapine FUMARATE 50 MG TABLET PO SCH (21:19)
[2016-07-29] MEDS: busPIRone HCL 10 MG TABLET (FP) PO SCH ×3 (06:09→21:35)
[2016-07-29] MEDS: metFORMIN HCL 500 MG TABLET (FP) PO SCH (06:09)
[2016-07-29] MEDS: GABAPENTIN 400 MG CAPSULE (FP) PO SCH ×3 (06:09→21:20)
[2016-07-29] MEDS ORDERED: INSULIN (NOVOLOG) ASPART 100 UNITS/ML 10ML VIAL ONE ×3 (06:10→23:30)
[2016-07-29] MEDS: INSULIN (NOVOLOG) ASPART 100 UNITS/ML 10ML VIAL SQ SCH ×2 (06:11→16:55)
[2016-07-29] MEDS: METHYL SALICYLATE/MENTHOL OINT 30 GM TUBE TP SCH ×2 (10:10→21:35)
[2016-07-29] MEDS: ASPIRIN 81 MG CHEWABLE TABLETS PO SCH (10:10)
[2016-07-29] MEDS: NAPROXEN 500 MG TABLET (FP) PO SCH ×2 (10:10→21:20)
[2016-07-29] MEDS: DOCUSATE SODIUM 100 MG CAPSULE (FP) PO SCH ×2 (10:10→21:20)
[2016-07-29] MEDS: CITALOPRAM HYDROBROMIDE 10 MG TABLET (FP) PO SCH (10:10)
[2016-07-29] MEDS: LISINOPRIL 10 MG TABLET (FP) PO SCH (10:10)
[2016-07-29] MEDS: LIDOCAINE 5% TOPICAL PATCH TP SCH (10:11)
[2016-07-29] MEDS: FLUTICASONE PROP 0.05% 16 GM NASAL SPRAY NS SCH (10:11)
[2016-07-29] MEDS: PRENATAL VITAMINS W/ FOLIC ACID TABLET (FP) PO SCH (10:13)
[2016-07-29] MEDS: NICOTINE 7 MG/24 HOURS TOPICAL PATCH TD SCH (10:13)
[2016-07-29] MEDS: BUDESONIDE/FORMETEROL FUMARATE 80/4.5 mcg INHALER IH SCH ×2 (10:14→21:19)
[2016-07-29] MEDS ORDERED: PT OWN MED DRAWER 7, Y5N ONE (11:09)
[2016-07-29] MEDS: hydrOXYzine PAMOATE 25 MG CAPSULE (FP) PO PRN (14:41)
[2016-07-29] MEDS: QUEtiapine FUMARATE 50 MG TABLET PO SCH (21:18)
[2016-07-29] MEDS: THIAMINE HCL 100 MG TABLET (FP) PO SCH (21:19)
[2016-07-30] MEDS: INSULIN (NOVOLOG) ASPART 100 UNITS/ML 10ML VIAL SQ SCH ×2 (06:28→17:12)
[2016-07-30] MEDS ORDERED: INSULIN (NOVOLOG) ASPART 100 UNITS/ML 10ML VIAL ONE ×2 (06:28→17:19)
[2016-07-30] MEDS: GABAPENTIN 400 MG CAPSULE (FP) PO SCH ×3 (06:29→21:32)
[2016-07-30] MEDS: busPIRone HCL 10 MG TABLET (FP) PO SCH ×3 (06:29→21:32)
[2016-07-30] MEDS: metFORMIN HCL 500 MG TABLET (FP) PO SCH (06:29)
[2016-07-30] MEDS ORDERED: PT OWN MED DRAWER 7, Y5N ONE ×2 (08:35→19:19)
[2016-07-30] MEDS: BUDESONIDE/FORMETEROL FUMARATE 80/4.5 mcg INHALER IH SCH ×2 (09:58→21:30)
[2016-07-30] MEDS: FLUTICASONE PROP 0.05% 16 GM NASAL SPRAY NS SCH (09:58)
[2016-07-30] MEDS: PRENATAL VITAMINS W/ FOLIC ACID TABLET (FP) PO SCH (09:59)
[2016-07-30] MEDS: DOCUSATE SODIUM 100 MG CAPSULE (FP) PO SCH ×2 (09:59→21:31)
[2016-07-30] MEDS: CITALOPRAM HYDROBROMIDE 10 MG TABLET (FP) PO SCH (10:00)
[2016-07-30] MEDS: LISINOPRIL 10 MG TABLET (FP) PO SCH (10:00)
[2016-07-30] MEDS: METHYL SALICYLATE/MENTHOL OINT 30 GM TUBE TP SCH ×2 (10:00→21:31)
[2016-07-30] MEDS: ASPIRIN 81 MG CHEWABLE TABLETS PO SCH (10:00)
[2016-07-30] MEDS: NAPROXEN 500 MG TABLET (FP) PO SCH ×2 (10:01→21:32)
[2016-07-30] MEDS: LIDOCAINE 5% TOPICAL PATCH TP SCH (10:01)
[2016-07-30] MEDS: NICOTINE 7 MG/24 HOURS TOPICAL PATCH TD SCH (10:04)
[2016-07-30] MEDS: NICOTINE POLACRILEX 2 MG GUM BUC PRN (10:04)
[2016-07-30] MEDS: QUEtiapine FUMARATE 50 MG TABLET PO SCH (21:31)
[2016-07-30] MEDS: diphenhydrAMINE HCL 25 MG CAPSULE (FP) PO PRN (21:32)
[2016-07-30] MEDS: THIAMINE HCL 100 MG TABLET (FP) PO SCH (21:32)
[2016-07-31] MEDS: busPIRone HCL 10 MG TABLET (FP) PO SCH ×3 (06:41→21:16)
[2016-07-31] MEDS: GABAPENTIN 400 MG CAPSULE (FP) PO SCH ×3 (06:41→21:16)
[2016-07-31] MEDS: metFORMIN HCL 500 MG TABLET (FP) PO SCH (06:42)
[2016-07-31] MEDS: INSULIN (NOVOLOG) ASPART 100 UNITS/ML 10ML VIAL SQ SCH ×2 (06:42→16:53)
[2016-07-31] MEDS ORDERED: PT OWN MED DRAWER 7, Y5N ONE ×2 (08:39→21:18)
[2016-07-31] MEDS: NICOTINE 7 MG/24 HOURS TOPICAL PATCH TD SCH (11:05)
[2016-07-31] MEDS: PRENATAL VITAMINS W/ FOLIC ACID TABLET (FP) PO SCH (11:05)
[2016-07-31] MEDS: BUDESONIDE/FORMETEROL FUMARATE 80/4.5 mcg INHALER IH SCH ×2 (11:05→21:17)
[2016-07-31] MEDS: NAPROXEN 500 MG TABLET (FP) PO SCH ×2 (11:05→21:16)
[2016-07-31] MEDS: LIDOCAINE 5% TOPICAL PATCH TP SCH (11:05)
[2016-07-31] MEDS: CITALOPRAM HYDROBROMIDE 10 MG TABLET (FP) PO SCH (11:05)
[2016-07-31] MEDS: ASPIRIN 81 MG CHEWABLE TABLETS PO SCH (11:05)
[2016-07-31] MEDS: METHYL SALICYLATE/MENTHOL OINT 30 GM TUBE TP SCH ×2 (11:05→21:19)
[2016-07-31] MEDS: LISINOPRIL 10 MG TABLET (FP) PO SCH (11:05)
[2016-07-31] MEDS: DOCUSATE SODIUM 100 MG CAPSULE (FP) PO SCH ×2 (11:05→21:16)
[2016-07-31] MEDS: FLUTICASONE PROP 0.05% 16 GM NASAL SPRAY NS SCH (13:05)
[2016-07-31] MEDS ORDERED: LISINOPRIL 10 MG TABLET (FP) PO ONE (15:30)
[2016-07-31] MEDS ORDERED: ASPIRIN 81 MG CHEWABLE TABLETS PO ONE (15:30)
--- NOTE | 2016-07-31 15:37 | PN ---
[facility] Progress Note Note: patient complained of chest pain not in any distress, bp 150/84,p99,r18,t99 ekg nsr,no change patient refused to take lisinopril 10 mgs and asa 81 mg this morning pulse oxymeter is 99% rx lisinopril 10 mgs po now asa 81 mgs po now close monitoring
[2016-07-31] MEDS ORDERED: INSULIN (NOVOLOG) ASPART 100 UNITS/ML 10ML VIAL ONE ×2 (16:13→23:18)
[2016-07-31] MEDS: QUEtiapine FUMARATE 50 MG TABLET PO SCH (21:16)
[2016-07-31] MEDS: THIAMINE HCL 100 MG TABLET (FP) PO SCH (21:16)
[2016-07-31] MEDS: diphenhydrAMINE HCL 25 MG CAPSULE (FP) PO PRN (21:18)
[2016-08-01] MEDS: GABAPENTIN 400 MG CAPSULE (FP) PO SCH ×3 (07:39→21:18)
[2016-08-01] MEDS: metFORMIN HCL 500 MG TABLET (FP) PO SCH (07:39)
[2016-08-01] MEDS: busPIRone HCL 10 MG TABLET (FP) PO SCH ×3 (07:40→21:18)
[2016-08-01] MEDS: INSULIN (NOVOLOG) ASPART 100 UNITS/ML 10ML VIAL SQ SCH ×2 (07:40→17:09)
[2016-08-01] MEDS ORDERED: INSULIN (NOVOLOG) ASPART 100 UNITS/ML 10ML VIAL ONE ×3 (07:45→23:28)
[2016-08-01] MEDS ORDERED: PT OWN MED DRAWER 7, Y5N ONE ×2 (08:50→21:21)
[2016-08-01] MEDS: LISINOPRIL 10 MG TABLET (FP) PO SCH (10:02)
[2016-08-01] MEDS: PRENATAL VITAMINS W/ FOLIC ACID TABLET (FP) PO SCH (10:02)
[2016-08-01] MEDS: FLUTICASONE PROP 0.05% 16 GM NASAL SPRAY NS SCH (10:02)
[2016-08-01] MEDS: LIDOCAINE 5% TOPICAL PATCH TP SCH (10:03)
[2016-08-01] MEDS: DOCUSATE SODIUM 100 MG CAPSULE (FP) PO SCH ×2 (10:03→21:18)
[2016-08-01] MEDS: CITALOPRAM HYDROBROMIDE 10 MG TABLET (FP) PO SCH (10:03)
[2016-08-01] MEDS: ASPIRIN 81 MG CHEWABLE TABLETS PO SCH (10:03)
[2016-08-01] MEDS: BUDESONIDE/FORMETEROL FUMARATE 80/4.5 mcg INHALER IH SCH ×2 (10:04→21:22)
[2016-08-01] MEDS: NICOTINE 7 MG/24 HOURS TOPICAL PATCH TD SCH (10:06)
[2016-08-01] MEDS: METHYL SALICYLATE/MENTHOL OINT 30 GM TUBE TP SCH ×2 (10:06→21:20)
[2016-08-01] MEDS: NAPROXEN 500 MG TABLET (FP) PO SCH ×2 (10:07→21:18)
[2016-08-01] MEDS: NICOTINE POLACRILEX 2 MG GUM BUC PRN (14:38)
[2016-08-01] MEDS: QUEtiapine FUMARATE 50 MG TABLET PO SCH (21:18)
[2016-08-01] MEDS: diphenhydrAMINE HCL 25 MG CAPSULE (FP) PO PRN (21:19)
[2016-08-01] MEDS: THIAMINE HCL 100 MG TABLET (FP) PO SCH (21:23)
--- NOTE | 2016-08-02 00:13 | EKG ---
Test Reason : Blood Pressure : / mmHG Vent. Rate : 087 BPM Atrial Rate : 087 BPM P-R Int : 142 ms QRS Dur : 090 ms QT Int : 384 ms P-R-T Axes : 068 046 052 degrees QTc Int : 462 ms NORMAL SINUS RHYTHM POSSIBLE LEFT ATRIAL ENLARGEMENT BORDERLINE ECG WHEN COMPARED WITH ECG OF 08-JUL-2016 14:31, NO SIGNIFICANT CHANGE WAS FOUND Confirmed by MARISOL JOHNSON, BRITTON ([id number]) on 08/02/2016 12:13:13 AM Referred By: Julieta Lazar Confirmed By:BRITTON DAMON MD
[2016-08-02] MEDS: INSULIN (NOVOLOG) ASPART 100 UNITS/ML 10ML VIAL SQ SCH ×2 (06:26→17:05)
[2016-08-02] MEDS: busPIRone HCL 10 MG TABLET (FP) PO SCH ×3 (06:27→21:10)
[2016-08-02] MEDS ORDERED: INSULIN (NOVOLOG) ASPART 100 UNITS/ML 10ML VIAL ONE ×2 (06:27→22:22)
[2016-08-02] MEDS: GABAPENTIN 400 MG CAPSULE (FP) PO SCH ×3 (06:27→21:08)
[2016-08-02] MEDS: metFORMIN HCL 500 MG TABLET (FP) PO SCH (06:27)
[2016-08-02] MEDS ORDERED: PT OWN MED DRAWER 7, Y5N ONE ×3 (08:35→10:42)
[2016-08-02] MEDS: DOCUSATE SODIUM 100 MG CAPSULE (FP) PO SCH ×2 (09:56→21:10)
[2016-08-02] MEDS: NAPROXEN 500 MG TABLET (FP) PO SCH ×2 (09:56→21:08)
[2016-08-02] MEDS: CITALOPRAM HYDROBROMIDE 10 MG TABLET (FP) PO SCH (09:56)
[2016-08-02] MEDS: ASPIRIN 81 MG CHEWABLE TABLETS PO SCH (09:56)
[2016-08-02] MEDS: LISINOPRIL 10 MG TABLET (FP) PO SCH (09:56)
[2016-08-02] MEDS: METHYL SALICYLATE/MENTHOL OINT 30 GM TUBE TP SCH ×2 (09:57→21:10)
[2016-08-02] MEDS: FLUTICASONE PROP 0.05% 16 GM NASAL SPRAY NS SCH (09:57)
[2016-08-02] MEDS: NICOTINE 7 MG/24 HOURS TOPICAL PATCH TD SCH (09:58)
[2016-08-02] MEDS: PRENATAL VITAMINS W/ FOLIC ACID TABLET (FP) PO SCH (09:59)
[2016-08-02] MEDS: BUDESONIDE/FORMETEROL FUMARATE 80/4.5 mcg INHALER IH SCH ×2 (10:00→21:07)
[2016-08-02] MEDS: NICOTINE POLACRILEX 2 MG GUM BUC PRN ×2 (10:00→17:44)
[2016-08-02] MEDS: LIDOCAINE 5% TOPICAL PATCH TP SCH (10:55)
--- NOTE | 2016-08-02 14:27 | PN ---
[id number] 98-105 18-18 145-150/84-98 Date of Session: 08/02/16 Chief Complaint:: Discharge visit HPI: Patient addressed Opioid,Cocaine and Alcohol dependence comorbid with Substance induced mood disorder. ROS: unremarkable. Current Medications: Active Medications Generic Name Dose Route Start Last Admin Trade Name Freq PRN Reason Stop Dose Admin Acetaminophen 650 mg 07/13/16 14:43 07/17/16 18:47 Tylenol - PO 650 mg Q4H PRN Administration FEVER OR PAIN Al Hydroxide/Mg Hydroxide 30 ml 07/13/16 14:43 Mylanta Oral Suspension - PO Q6H PRN DYSPEPSIA Albuterol Sulfate 2 puff 07/13/16 14:45 07/25/16 22:30 Ventolin Hfa Inhaler - IH 2 puff Q4H PRN Administration ASTHMA Aspirin 81 mg 07/14/16 10:00 08/02/16 09:56 Asa - PO 81 mg DAILY AYE Administration Budesonide/Formoterol Fumarate 2 puff 07/13/16 22:00 08/02/16 10:00 Symbicort 80/4.5mcg - IH 2 inhaler BID AYE Administration Buspirone HCl 10 mg 07/15/16 14:00 08/02/16 13:09 Buspar - PO 10 mg TID AYE Administration Citalopram Hydrobromide 30 mg 07/29/16 10:00 08/02/16 09:56 Celexa - PO 30 mg DAILY AYE Administration Colloidal Oatmeal 1 applic 07/18/16 17:46 07/23/16 06:24 Aveeno Soap - TP 1 applic DAILY PRN Administration HYGEINE Diphenhydramine HCl 25 mg 07/18/16 17:46 07/18/16 17:54 Benadryl - PO 25 mg Q6H PRN Administration FOR ITCHING Diphenhydramine HCl 100 mg 07/28/16 22:00 08/01/16 21:19 Benadryl - PO 100 mg HS PRN Administration INSOMNIA Docusate Sodium 100 mg 07/14/16 22:00 08/02/16 09:56 Colace - PO 100 mg BID AYE Administration Eucalyptus/Menthol/Phenol/Sorbitol 1 each 07/13/16 14:43 07/28/16 10:01 Cepastat Lozenge - MM 1 each Q4H PRN Administration SORE THROAT Fluticasone Propionate 2 spray 07/15/16 13:15 08/02/16 09:57 Flonase - NS 2 sprays DAILY AYE Administration Gabapentin 400 mg 07/15/16 22:00 08/02/16 13:09 Neurontin - PO 400 mg TID AYE Administration Guaifenesin 10 ml 07/13/16 14:43 07/16/16 15:36 Robitussin Dm - PO 10 ml Q6H PRN Administration COUGH Hydroxyzine Pamoate 25 mg 07/15/16 11:12 07/29/16 14:41 Vistaril - PO 25 mg Q4H PRN Administration ANXIETY Insulin Aspart 0 units 07/13/16 16:30 08/02/16 06:26 Novolog Vial SQ 4 units BIDAC AYE Administration Protocol Lidocaine 3 patch 07/19/16 15:15 08/02/16 10:55 Lidoderm Patch - TP 3 patch DAILY AYE Administration Lisinopril 10 mg 07/14/16 10:00 08/02/16 09:56 Prinivil PO 10 mg DAILY AYE Administration Loperamide HCl 4 mg 07/13/16 14:43 Imodium - PO Q6H PRN DIARRHEA Magnesium Hydroxide 30 ml 07/13/16 14:43 07/19/16 18:12 Milk Of Magnesia - PO 30 ml DAILY PRN Administration CONSTIPATION Metformin HCl 500 mg 07/14/16 07:00 08/02/16 06:27 Glucophage - PO 500 mg ACBK AYE Administration Methyl Salicylate 1 applic 07/15/16 13:55 08/02/16 09:57 Osmar-Sorto - TP Not Given BID AYE Naproxen 500 mg 07/13/16 22:00 08/02/16 09:56 Naprosyn - PO 500 mg BID AYE Administration Nicotine 7 mg 07/14/16 10:00 08/02/16 09:58 Nicoderm Patch - TD Not Given DAILY AYE Nicotine Polacrilex 2 mg 07/13/16 14:43 08/02/16 10:00 Nicorette Gum - BUC 2 mg Q2H PRN Administration NICOTINE REPLACEMENT RX Multivit/Folic Acid/Iron 1 tab 07/14/16 10:00 08/02/16 09:59 Vitamins (Sjr) - PO 1 tab DAILY AYE Administration Pseudoephedrine/Triprolidine 1 combo 07/13/16 14:43 07/16/16 17:30 Actifed - PO 1 combo TID PRN Administration NASAL CONGESTION Quetiapine Fumarate 150 mg 07/28/16 22:00 08/01/16 21:18 Seroquel - PO 150 mg HS AYE Administration Thiamine HCl 100 mg 07/13/16 22:00 08/01/16 21:23 Vitamin B1 - PO 100 mg HS AYE Administration Current Side Effect: No Lab tests ordered: No Lab tests reviewed: Yes Provider note:: The patient will complete this program tomorrow 08/03/16.She has met her treatment goals and will continue to address her issues on outpatient basis at [facility] at [facility].Patient continues to find that Buspar 10 mg po bid,Neurontin 400 mg po tid ,Celexa 30 mg po daily and Seroquel 150 mg po hs help to cope her with depressed mood,anxiety,mood instability.Scripts for 30 days supply provided..Therapy provided focusing on relapse prevention including coping skills,support system utilization to maintain recovery. Patient is stable for discharge tomorrow. Total face to face time:: 35 Mental Status Exam - Mental Status Exam Alert and Oriented to: Time, Place, Person Cognitive Function: Grossly Intact Patient Appearance: Well Groomed Mood: Hopeful, Euthymic Affect: Mood Congruent Patient Behavior: Appropriate, Cooperative Speech Pattern: Clear Voice Loudness: Normal Thought Process: Goal Oriented Thought Disorder: Not Present Hallucinations: Denies Suicidal Ideation: Denies Homicidal Ideation: Denies Insight/Judgement: Fair Sleep: Fair Appetite: Good Muscle strength/Tone: Normal Gait/Station: Normal Psychiatric Treatment Plan - Problem List (3) Cocaine dependence Qualifiers: Complication of substance-induced condition: with unspecified complication (4) Nicotine dependence Qualifiers: Nicotine product type: cigarettes Substance use status: uncomplicated Qualified Code(s): F17.210 - Nicotine dependence, cigarettes, uncomplicated
[2016-08-02] MEDS: THIAMINE HCL 100 MG TABLET (FP) PO SCH (21:07)
[2016-08-02] MEDS: QUEtiapine FUMARATE 50 MG TABLET PO SCH (21:07)
[2016-08-02] MEDS: diphenhydrAMINE HCL 25 MG CAPSULE (FP) PO PRN (21:09)
[2016-08-03] MEDS ORDERED: INSULIN (NOVOLOG) ASPART 100 UNITS/ML 10ML VIAL ONE (06:30)
[2016-08-03] MEDS: INSULIN (NOVOLOG) ASPART 100 UNITS/ML 10ML VIAL SQ SCH (06:30)
[2016-08-03] MEDS: busPIRone HCL 10 MG TABLET (FP) PO SCH (06:31)
[2016-08-03] MEDS: metFORMIN HCL 500 MG TABLET (FP) PO SCH (06:31)
[2016-08-03] MEDS: GABAPENTIN 400 MG CAPSULE (FP) PO SCH (06:31)
[2016-08-03 07:01] VITALS: TEMP 98
[2016-08-03] MEDS ORDERED: PT OWN MED DRAWER 7, Y5N ONE (08:22)
[2016-08-03] MEDS: PRENATAL VITAMINS W/ FOLIC ACID TABLET (FP) PO SCH (09:40)
[2016-08-03] MEDS: BUDESONIDE/FORMETEROL FUMARATE 80/4.5 mcg INHALER IH SCH (09:41)
[2016-08-03] MEDS: LISINOPRIL 10 MG TABLET (FP) PO SCH (09:41)
[2016-08-03] MEDS: LIDOCAINE 5% TOPICAL PATCH TP SCH (09:41)
[2016-08-03] MEDS: DOCUSATE SODIUM 100 MG CAPSULE (FP) PO SCH (09:41)
[2016-08-03] MEDS: FLUTICASONE PROP 0.05% 16 GM NASAL SPRAY NS SCH (09:41)
[2016-08-03] MEDS: NAPROXEN 500 MG TABLET (FP) PO SCH (09:41)
[2016-08-03] MEDS: CITALOPRAM HYDROBROMIDE 10 MG TABLET (FP) PO SCH (09:42)
[2016-08-03] MEDS: ASPIRIN 81 MG CHEWABLE TABLETS PO SCH (09:42)
[2016-08-03] MEDS: METHYL SALICYLATE/MENTHOL OINT 30 GM TUBE TP SCH (09:42)
[2016-08-03 09:43] VITALS: BP 136/92; PULSE 112
== END 2016-08-03 09:52 | disposition home or self-care (01) | DRG 772 ==
LOC: YASAS 11:33 → Y3E 11:34
PROVIDERS: ADMIT Psychiatry & Neurology Psychiatry; ATTEND Psychiatry & Neurology Psychiatry
PROC: HZ42ZZZ Group Counseling for Substance Abuse Treatment, Cognitive-Behavioral (ICD-10-PCS; principal; 2016-08-03)
DX: F11.23 Opioid dependence with withdrawal (principal); F10.230 Alcohol dependence with withdrawal, uncomplicated; F14.20 Cocaine dependence, uncomplicated; F17.210 Nicotine dependence, cigarettes, uncomplicated; F19.24 Other psychoactive substance dependence with psychoactive substance-induced mood disorder; F41.8 Other specified anxiety disorders; F43.10 Post-traumatic stress disorder, unspecified; E11.9 Type 2 diabetes mellitus without complications; Z79.4 Long term (current) use of insulin
CPT/HCPCS: 90732; 93005; 93010; G0009

== ENCOUNTER 2017-11-08 13:38 | Inpatient (IN) | payer OTHER ==
[2017-11-08 15:55] VITALS: BMI 27.4
--- NOTE | 2017-11-08 20:00 | HP ---
COWS - Scale Resting Pulse: 2= [place] 101-120 Sweatin= Chills/Flushing Restless Observation: 1= Difficult to Sit Still Pupil Size: 1= Pupils >than Normal Bone or Joint Aches: 1= Mild Discomfort Runny Nose/ Eye Tearin= Constantly Teary/Runny GI Upset > 30mins: 2= Nausea/Diarrhea Tremor Observation: 1= Tremor [place], Not Seen Yawning Observation: 1= 1-2x During Session Anxiety or Irritability: 1=Feels Anxious/Irritable Goose Flesh Skin: 0=Smooth Skin COWS Score: [address] [facility] Chief Complaint: opioid withdrawal symptoms Allergies/Adverse Reactions: Allergies Allergy/AdvReac Type Severity Reaction Status Date / Time Fish Containing Products Allergy Severe Hives Verified 07/21/16 11:23 No Known Drug Allergies Allergy Severe Verified 07/08/16 13:04 History of Present Illness: 52 yo female with hx of nicotine, crack/ cocaine and heroin dependence is here seeking detox. PMHX: asthma, DM II, HTN, Seizure d/o , bipolar and schizophrenia. Last seizure one year. Last detox [facility] 07/13/16 - 08/03/16. Denies suicidal / homicidal ideation, reports hx of suicide attempt 10 years ago . Denies hx of over dose. Longest period of sobriety five years. Exam Limitations: No Limitations - Ebola screening Have you traveled outside of the country in the last 21 days: No Have you had contact with anyone from an Ebola affected area: No Have you been sick,other than usual withdrawal symptoms: No Do you have a fever: No - Review of Systems Constitutional: Chills, Diaphoresis, Loss of Appetite, Changes in sleep, Unintentional Wgt. Loss (100lbs + over past six months) EENT: reports: Tearing, Nose Congestion, Dental Problems (missing teeth) Respiratory: reports: No Symptoms reported Cardiac: reports: No Symptoms Reported GI: reports: Diarrhea, Nausea, Poor Appetite, Poor Fluid Intake, Indigestion, Abdominal cramping, Other (hx of constipation with blood in stool with hard BM) : reports: No Symptoms Reported Musculoskeletal: reports: Back Pain, Joint Pain Integumentary: reports: No Symptoms Reported Neuro: reports: Headache, Numbness (both lower extremites hx neuropathy) Endocrine: reports: Increased Thirst, Change in Weight Hematology: reports: No Symptoms Reported Psychiatric: reports: Mood/Affect Appropiate, Orientated x3, Anxious, Depressed (friend three days ago opioid overdose) Other Systems: Reviewed and Negative Patient History - Patient Medical History Hx Anemia: No Hx Asthma: Yes Hx Chronic Obstructive Pulmonary Disease (COPD): No Hx Cancer: No Hx Cardiac Disorders: No Hx Congestive Heart Failure: No Hx Hypertension: Yes Hx Hypercholesterolemia: No Hx Pacemaker: No HX Cerebrovascular Accident: No Hx Seizures: Yes (R/T to drug 2001) Hx Dementia: No Hx Diabetes: Yes Hx Gastrointestinal Disorders: No Hx Liver Disease: No Hx Genitourinary Disorders: No Hx Sexually Transmitted Disorders: Yes (Syphilis treated 1986) Hx Renal Disease (ESRD): No Hx Thyroid Disease: No Hx Human Immunodeficiency Virus (HIV): No (2015 last negative) Hx Hepatitis C: No Hx Depression: Yes Hx Suicide Attempt: Yes (2015 by cutting wrist) Hx Bipolar Disorder: No Hx Schizophrenia: Yes - Patient Surgical History Past Surgical History: Yes Hx Cholecystectomy: Yes Other Surgical History: Tubal ligation 1991 - PPD History Documented Results: Negative w/o proof Date: 06/12/16 Results: 0mm PPD to be Administered?: No - Reproductive History Patient is a Female of Child Bearing Age (11 -55 yrs old): Yes (post menopausal ) Last Menstrual Period: 06/03/13 Patient : No - Smoking Cessation Smoking history: Current every day smoker Have you smoked in the past 12 months: Yes Aproximately how many cigarettes per day: 10 Cigars Per Day: 0 Hx Chewing Tobacco Use: No Initiated information on smoking cessation: Yes 'Breaking Loose' booklet given: 11/08/17 - Substance & Tx. History Hx Alcohol Use: Yes Hx Substance Use: Yes Substance Use Type: Alcohol, Cocaine, Heroin Hx Substance Use Treatment: Yes (ast detox [facility] 07/13/16 - 08/03/16. ) - Substances Abused Heroin Route: Inhalation Frequency: Daily Amount used: 5 bundles Age of first use: 49 Date of Last Use: 11/08/17 Crack Route: Smoking Frequency: 1-2 times per week Amount used: $300 Age of first use: 21 Date of Last Use: 11/08/17 Family Disease History - Family Disease History Family Disease History: Diabetes: Mother ( ), Sister (), Other: Mother Admission Physical Exam BHS - Vital Signs Vital Signs: Vital Signs - 24 hr 11/08/17 15:53 Temperature 99.1 F Pulse Rate 101 H Respiratory 20 Rate Blood Pressure 144/85 - Physical General Appearance: Yes: Disheveled, Mild Distress, Sweating, Anxious HEENTM: Yes: EOMI, Hearing grossly Normal, Normal ENT Inspection, Normocephalic , Normal Voice, ISSAC, Pharynx Normal, Tm's normal, Rhinorrhea, Other (poor dentition) Respiratory: Yes: Chest Non-Tender, Lungs Clear, No Respiratory Distress, No Accessory Muscle Use, Wheezing Neck: Yes: Within Normal Limits Breast: Yes: Breast Exam Deferred Cardiology: Yes: Regular Rhythm, Regular Rate Abdominal: Yes: Normal Bowel Sounds, Non Tender, Soft, Protuberent Genitourinary: Yes: Within Normal Limits Back: Yes: Normal Inspection Musculoskeletal: Yes: full range of Motion, Gait Steady, Pelvis Stable, Back pain Extremities: Yes: Normal Capillary Refill, Normal Inspection, Normal Range of Motion, Non-Tender Neurological: Yes: director export II-XII NML intact, Fully Oriented, Alert, Motor Strength 5/5, Depressed Affect Integumentary: Yes: Normal Color, Warm, Diaphoresis Lymphatic: Yes: Within Normal Limits - Diagnostic (1) Neuropathy Current Visit: Yes Status: Acute (2) Cocaine dependence Current Visit: Yes Status: Acute Qualifiers: Complication of substance-induced condition: with unspecified complication (3) Nicotine dependence Current Visit: Yes Status: Acute Qualifiers: Nicotine product type: cigarettes Substance use status: uncomplicated Qualified Code(s): F17.210 - Nicotine dependence, cigarettes, uncomplicated (4) Opioid dependence with withdrawal Current Visit: Yes Status: Acute (5) Asthma Current Visit: Yes Status: Chronic Qualifiers: Asthma severity: moderate Asthma persistence: unspecified Asthma complication type: uncomplicated Qualified Code(s): J45.909 - Unspecified asthma, uncomplicated (6) DM2 (diabetes mellitus, type 2) Current Visit: Yes Status: Chronic Qualifiers: Diabetes mellitus intermodal dispatcher insulin use: without intermodal dispatcher use Chronic kidney disease stage: unspecified stage (7) Essential hypertension Current Visit: Yes Status: Chronic (8) Seizure Current Visit: Yes Status: Chronic Cleared for Admission [facility] - Detox or Rehab [facility] Level of Care: Medically Managed Detox Regimen/Protocol: Methadone [facility] Breath Alcohol Content Breath Alcohol Content: 0 Urine Pregancy Test - Result Urine Test Results: Negative- NO Line Present Urine Drug Screen - Results Drug Screen Negative: No Urine Drug Screen Results: LOLLY-Cocaine, OPI-Opiates, MTD-Methadone
[2017-11-08] MEDS ORDERED: ACETAMINOPHEN 325 MG TABLET (FP) PO PRN (20:17)
[2017-11-08] MEDS ORDERED: NICOTINE POLACRILEX 2 MG GUM BUC PRN (20:17)
[2017-11-08] MEDS ORDERED: IBUPROFEN 400 MG TABLET (FP) PO PRN (20:17)
[2017-11-08] MEDS ORDERED: MAG HYDROX/AL HYDROX/SIMETH 30 ML UNIT-DOSE CUP PO PRN (20:17)
[2017-11-08] MEDS ORDERED: LOPERAMIDE HCL 2 MG CAPSULE PO PRN (20:17)
[2017-11-08] MEDS ORDERED: MAGNESIUM HYDROX 2400MG/30ML ORAL SUSPENSION 30 ML CUP PO PRN (20:17)
[2017-11-08] MEDS ORDERED: MAGNESIUM CITRATE 300 ML BOTTLE PO PRN (20:17)
[2017-11-08] MEDS ORDERED: guaiFENesin/D-METHORPHAN HB 10 ML UNIT-DOSE CUPS PO PRN (20:17)
[2017-11-08] MEDS ORDERED: MENTHOL/PHENOL 1 EACH UD MM PRN (20:17)
[2017-11-08] MEDS ORDERED: ALBUTEROL SO4 8 GM HFA INHALER IH PRN (20:21)
[2017-11-08] MEDS ORDERED: ALBUTEROL SO4 2.5/IPRATROPIUM 0.5 INH SOL 3 ML VIAL.NEB. NEB PRN (20:31)
[2017-11-08] MEDS ORDERED: METHADONE HCL 10 MG TABLET (FOR DETOX USE ONLY) PO ONE ×2 (20:45→23:00)
[2017-11-08] MEDS: BUDESONIDE/FORMETEROL FUMARATE 160/4.5 mcg INHALER IH SCH (21:49)
[2017-11-08] MEDS: DOCUSATE SODIUM 100 MG CAPSULE (FP) PO SCH (21:50)
[2017-11-08] MEDS: CYCLOBENZAPRINE HCL 10 MG TABLET (FP) PO PRN (21:50)
[2017-11-08] MEDS: GABAPENTIN 400 MG CAPSULE (FP) PO SCH (21:51)
[2017-11-08] MEDS: NAPROXEN 500 MG TABLET (FP) PO SCH (21:51)
[2017-11-08] MEDS ORDERED: cloNIDine HCL 0.1 MG TABLET PO ONE (21:54)
[2017-11-08] MEDS ORDERED: MELATONIN 5 MG TABLETS PO PRN (22:00)
[2017-11-08] MEDS: diazePAM 5 MG TABLET PO PRN (22:34)
[2017-11-08] MEDS: P-EPHED 60MG/TRIPROLIDI 2.5MG TABLET PO PRN (22:36)
[2017-11-08] MEDS: THIAMINE HCL 100 MG TABLET (FP) PO SCH (22:42)
[2017-11-09 02:52] LABS: URINE APPEARANCE SLCLOUDY; URINE BILIRUBIN NEGATIVE (<2.0 mg/dL); URINE COLOR YELLOW; URINE GLUCOSE (UA) 3+ (NEGATIVE); URINE KETONE NEGATIVE (NEGATIVE); URINE LEUK ESTERASE NEGATIVE (NEGATIVE); URINE NITRITE NEGATIVE (NEGATIVE)
[2017-11-09 03:07] LABS: URINE PROTEIN 1+ (NEGATIVE)
[2017-11-09 03:12] LABS: EPI CELLS FEW /HPF (FEW); URINE BACTERIA RARE /hpf (NONE SEEN); URINE HYALINE CAST 1 /lpf; URINE MUCUS MANY
[2017-11-09] MEDS: DOCUSATE SODIUM 100 MG CAPSULE (FP) PO SCH ×3 (06:09→22:37)
[2017-11-09] MEDS: metFORMIN HCL 500 MG TABLET (FP) PO SCH (06:10)
[2017-11-09] MEDS: GABAPENTIN 400 MG CAPSULE (FP) PO SCH ×3 (06:10→22:37)
--- NOTE | 2017-11-09 08:07 | CONSULT ---
[facility] Psychiatric Consult - Data Date of interview: 11/09/17 Admission source: [facility] Identifying data: This is a 52 years old female, single mother of three, living with significant other, unemployed, with no ioncome, with psychiatric hospitalization history, history of Schizophrenia, with hstory of nicotine, crack/ cocaine and heroin, nicotine dependence is here seeking detox. Substance Abuse History: - Smoking Cessation. Smoking history: Current every day smoker. Have you smoked in the past 12 months: Yes. Aproximately how many cigarettes per day: 10. Cigars Per Day: 0. Hx Chewing Tobacco Use: No. Initiated information on smoking cessation: Yes. 'Breaking Loose' booklet given : 11/08/17. - Substance & Tx. History. Hx Alcohol Use: Yes. Hx Substance Use : Yes. Substance Use Type: Alcohol, Cocaine, Heroin. Hx Substance Use Treatment: Yes (ast detox [facility] 07/13/16 - 08/03/16. ). - Substances Abused. Heroin. Route: Inhalation. Frequency: Daily. Amount used: 5 bundles. Age of first use: 49. Date of Last Use: 11/08/17. Crack. Route: Smoking. Frequency: 1-2 times per week. Amount used: $300. Age of first use: 21. Date of Last Use: 11/08/17 Medical History: Asthma, DM-2, HTN, Obesity, Seizure history Psychiatric History: Patient reports insomnia, reports taking prior to admission Ambien 10mg po qhs. As per computer patient has a history of Schizophrenia with most recent psychiatric admission on more then 10 years ago. Reports tasking prior to admission: Ambien 10mg po qhs. Denies suicidal, homicidal ideation. As per computer bthere is a suicidal attempt on 2016 by cuttiong her wrist, no stitches applyed, patient minimizing her past psychiatric history. Physical/Sexual Abuse/Trauma History: Denies Additional Comment: Ambien 10mg po qhs Mental Status Exam - Mental Status Exam Alert and Oriented to: Person Cognitive Function: Fair Patient Appearance: Unkempt Mood: Apprehensive Affect: Normal Range Patient Behavior: Cooperative Speech Pattern: Appropriate Voice Loudness: Mildly Soft/Quiet Thought Process: Goal Oriented Thought Disorder: Being Controlled Hallucinations: Denies Suicidal Ideation: Denies Homicidal Ideation: Denies Insight/Judgement: Fair Sleep: Difficulty falling asleep Appetite: Weight gain Muscle strength/Tone: Mild Hypotonicity Gait/Station: Shuffling Additional Comments: Ambien 10mg po qhs Psychiatric Findings - Problem List ([place] 1, 2,3) (1) Schizophrenia Current Visit: Yes Status: Suspected (2) Cocaine dependence Current Visit: Yes Status: Acute Qualifiers: Complication of substance-induced condition: with unspecified complication (3) Nicotine dependence Current Visit: Yes Status: Acute Qualifiers: Nicotine product type: cigarettes Substance use status: uncomplicated Qualified Code(s): F17.210 - Nicotine dependence, cigarettes, uncomplicated (4) Opioid dependence with withdrawal Current Visit: Yes Status: Acute (5) Alcohol dependence with uncomplicated withdrawal Current Visit: No Status: Acute (6) Opioid dependence Current Visit: No Status: Acute (7) Substance induced mood disorder Current Visit: No Status: Acute (8) Substance-induced anxiety disorder Current Visit: No Status: Acute (9) Anxiety and depression Current Visit: No Status: Chronic (10) Bipolar disorder Current Visit: No Status: Inactive (11) Post traumatic stress disorder (PTSD) Current Visit: No Status: Chronic (12) Neuropathy Current Visit: Yes Status: Acute (13) Asthma Current Visit: Yes Status: Chronic Qualifiers: Asthma severity: moderate Asthma persistence: unspecified Asthma complication type: uncomplicated Qualified Code(s): J45.909 - Unspecified asthma, uncomplicated (14) DM2 (diabetes mellitus, type 2) Current Visit: Yes Status: Chronic Qualifiers: Diabetes mellitus intermediate insulin use: without intermediate use Chronic kidney disease stage: unspecified stage (15) Essential hypertension Current Visit: Yes Status: Chronic - Initial Treatment Plan Initial Treatment Plan: Ambien 10mg po qhs
[2017-11-09] MEDS ORDERED: METHADONE HCL 10 MG TABLET (FOR DETOX USE ONLY) PO ONE (10:00)
--- NOTE | 2017-11-09 10:30 | EKG ---
Test Reason : Blood Pressure : / mmHG Vent. Rate : 089 BPM Atrial Rate : 089 BPM P-R Int : 144 ms QRS Dur : 090 ms QT Int : 380 ms P-R-T Axes : 071 038 051 degrees QTc Int : 462 ms NORMAL SINUS RHYTHM NORMAL ECG WHEN COMPARED WITH ECG OF 31-JUL-2016 14:01, NONSPECIFIC T WAVE ABNORMALITY NO LONGER EVIDENT IN ANTERIOR LEADS Confirmed by ERENDIRA JOHNSON, RACHEL ([id number]) on 11/09/2017 10:30:34 AM Referred By: Confirmed By:RACHEL KRISHNA MD
[2017-11-09 10:52] LABS: MCH 29.8 pg (25.7-33.7); MCHC 34.2 g/dl (32.0-36.0); MEAN CELL VOLUME 87.1 fl (80-96); MEAN PLT VOLUME 7.9 fl (7.5-11.1); PLATELET COUNT 347 K/MM3 (134-434); RBC 4.37 M/mm3 (3.60-5.2); RDW 12.8 % (11.6-15.6); WHITE BLOOD COUNT 10.7 K/mm3 (4.0-10.0)
[2017-11-09] MEDS: LISINOPRIL 10 MG TABLET (FP) PO SCH (10:58)
[2017-11-09] MEDS: PRENATAL VITAMINS W/ FOLIC ACID TABLET (FP) PO SCH (10:58)
[2017-11-09] MEDS: ASPIRIN 81 MG CHEWABLE TABLETS PO SCH (10:58)
[2017-11-09] MEDS: diazePAM 5 MG TABLET PO PRN (10:58)
[2017-11-09] MEDS: NAPROXEN 500 MG TABLET (FP) PO SCH ×2 (10:58→22:37)
[2017-11-09] MEDS: BUDESONIDE/FORMETEROL FUMARATE 160/4.5 mcg INHALER IH SCH ×2 (10:59→22:50)
[2017-11-09] MEDS: FLUTICASONE PROP 0.05% 16 GM NASAL SPRAY NS SCH (10:59)
[2017-11-09] MEDS: NICOTINE 14 MG/24 HOURS TOPICAL PATCH TD SCH (11:01)
[2017-11-09 11:30] LABS: CHLORIDE 100 mmol/L (98-107); POTASSIUM 4.1 mmol/L (3.5-5.1); SODIUM 139 mmol/L (136-145)
[2017-11-09 12:04] LABS: ALBUMIN 2.8 g/dl (3.4-5.0); ALK PHOS 92 U/L (45-117); ANION GAP 10 (8-16); BILIRUBIN,TOTAL 0.2 mg/dL (0.2-1.0); BLOOD UREA NITROGEN 12 mg/dL (7-18); CO2 29 mmol/L (21-32); CREATININE 0.7 mg/dL (0.55-1.02); GLUCOSE,RANDOM 295 mg/dL (74-106); SGOT/AST 10 U/L (15-37); SGPT/ALT 16 U/L (12-78); TOT PROT 6.2 g/dl (6.4-8.2)
--- NOTE | 2017-11-09 14:49 | PN ---
BHS COWS - Scale Resting Pulse: 1= IN 81-100 Sweatin= Chills/Flushing Restless Observation: 3= Extraneous Movement Pupil Size: 1= Pupils >than Normal Bone or Joint Aches: 2= Severe Diffuse Aches Runny Nose/ Eye Tearin= Runny Nose/Eyes GI Upset > 30mins: 2= Nausea/Diarrhea Tremor Observation of Outstretched Hands: 2= Slight Tremor Visible Yawning Observation: 1= 1-2x During Session Anxiety or Irritability: 2=Irritable/Anxious Goose Flesh Skin: 0=Smooth Skin COWS Score: 17 S Progress Note (SOAP) Subjective: alert,irritable,anxious,interrupted sleep,pain in the body and back,tremor Objective: 11/09/17 14:46 Vital Signs Temperature 97.7 F 11/09/17 09:39 Pulse Rate 83 11/09/17 09:39 Respiratory Rate 18 11/09/17 09:39 Blood Pressure 130/72 11/09/17 09:39 O2 Sat by Pulse Oximetry (%) ekg nsr qt/qtc 380/462 Laboratory Last Values WBC 10.7 K/mm3 (4.0-10.0) H 11/09/17 07:30 RBC 4.37 M/mm3 (3.60-5.2) 11/09/17 07:30 Hgb 13.0 GM/dL (10.7-15.3) 11/09/17 07:30 Hct 38.0 % (32.4-45.2) 11/09/17 07:30 MCV 87.1 fl (80-96) 11/09/17 07:30 MCH 29.8 pg (25.7-33.7) 11/09/17 07:30 MCHC 34.2 g/dl (32.0-36.0) 11/09/17 07:30 RDW 12.8 % (11.6-15.6) D 11/09/17 07:30 Plt Count 347 K/MM3 (134-434) 11/09/17 07:30 MPV 7.9 fl (7.5-11.1) 11/09/17 07:30 Sodium 139 mmol/L (136-145) 11/09/17 07:30 Potassium 4.1 mmol/L (3.5-5.1) 11/09/17 07:30 Chloride 100 mmol/L (98-107) 11/09/17 07:30 Carbon Dioxide 29 mmol/L (21-32) 11/09/17 07:30 Anion Gap 10 (8-16) 11/09/17 07:30 BUN 12 mg/dL (7-18) 11/09/17 07:30 Creatinine 0.7 mg/dL (0.55-1.02) 11/09/17 07:30 Creat Clearance w eGFR > 60 (>60) 11/09/17 07:30 POC Glucometer 238 UNITS (80-120) 11/09/17 06:09 Random Glucose 295 mg/dL (74-106) H 11/09/17 07:30 Calcium 9.0 mg/dL (8.5-10.1) 11/09/17 07:30 Total Bilirubin 0.2 mg/dL (0.2-1.0) 11/09/17 07:30 AST 10 U/L (15-37) L 11/09/17 07:30 ALT 16 U/L (12-78) 11/09/17 07:30 Alkaline Phosphatase 92 U/L (45-117) 11/09/17 07:30 Total Protein 6.2 g/dl (6.4-8.2) L 11/09/17 07:30 Albumin 2.8 g/dl (3.4-5.0) L 11/09/17 07:30 Urine Color Yellow 11/08/17 22:30 Urine Appearance Slcloudy 11/08/17 22:30 Urine pH 5.0 (5.0-8.0) 11/08/17 22:30 Ur Specific [place] 1.031 (1.001-1.035) 11/08/17 22:30 Urine Protein 1+ (NEGATIVE) H 11/08/17 22:30 Urine Glucose (UA) 3+ (NEGATIVE) H D 11/08/17 22:30 Urine Ketones Negative (NEGATIVE) 11/08/17 22:30 Urine Blood Negative (NEGATIVE) 11/08/17 22:30 Urine Nitrite Negative (NEGATIVE) 11/08/17 22:30 Urine Bilirubin Negative (<2.0 mg/dL) 11/08/17 22:30 Urine Urobilinogen 2.0 mg/dL (0.2-1.0) H 11/08/17 22:30 Ur Leukocyte Esterase Negative (NEGATIVE) 11/08/17 22:30 Urine WBC (Auto) 4 /hpf (3-5) 11/08/17 22:30 Urine RBC (Auto) 3 /hpf (0-3) 11/08/17 22:30 Ur Epithelial Cells Few /HPF (FEW) 11/08/17 22:30 Urine Bacteria Rare /hpf (NONE SEEN) 11/08/17 22:30 Hyaline Casts 1 /lpf 11/08/17 22:30 Urine Mucus Many 11/08/17 22:30 Assessment: 11/09/17 14:48 withdrawal symptom Plan: continue detox,bgm monitoring,encourage oral fluid
[2017-11-09] MEDS: CYCLOBENZAPRINE HCL 10 MG TABLET (FP) PO PRN (22:37)
[2017-11-09] MEDS: THIAMINE HCL 100 MG TABLET (FP) PO SCH (22:37)
[2017-11-09] MEDS: ZOLPIDEM TARTRATE 10 MG TABLET (PARK CARE ONLY) PO PRN (22:37)
[2017-11-10] MEDS: GABAPENTIN 400 MG CAPSULE (FP) PO SCH ×3 (05:57→22:11)
[2017-11-10] MEDS: DOCUSATE SODIUM 100 MG CAPSULE (FP) PO SCH ×3 (05:57→22:11)
[2017-11-10] MEDS: metFORMIN HCL 500 MG TABLET (FP) PO SCH (06:41)
[2017-11-10] MEDS ORDERED: METHADONE HCL 5 MG TABLET (FOR DETOX USE ONLY) PO ONE (10:00)
[2017-11-10] MEDS: NAPROXEN 500 MG TABLET (FP) PO SCH ×2 (10:24→22:11)
[2017-11-10] MEDS: ASPIRIN 81 MG CHEWABLE TABLETS PO SCH (10:24)
[2017-11-10] MEDS: BUDESONIDE/FORMETEROL FUMARATE 160/4.5 mcg INHALER IH SCH ×2 (10:25→22:10)
[2017-11-10] MEDS: LISINOPRIL 10 MG TABLET (FP) PO SCH (10:25)
[2017-11-10] MEDS: diazePAM 5 MG TABLET PO PRN ×2 (10:25→17:04)
[2017-11-10] MEDS: FLUTICASONE PROP 0.05% 16 GM NASAL SPRAY NS SCH (10:26)
[2017-11-10] MEDS: NICOTINE 14 MG/24 HOURS TOPICAL PATCH TD SCH (10:26)
[2017-11-10] MEDS: PRENATAL VITAMINS W/ FOLIC ACID TABLET (FP) PO SCH (10:26)
[2017-11-10] MEDS: CYCLOBENZAPRINE HCL 10 MG TABLET (FP) PO PRN ×2 (13:33→22:11)
--- NOTE | 2017-11-10 15:15 | PN ---
[facility] COWS - Scale Resting Pulse: 1= [place] 81-100 Sweatin= Chills/Flushing Restless Observation: 1= Difficult to Sit Still Pupil Size: 1= Pupils >than Normal Bone or Joint Aches: 2= Severe Diffuse Aches Runny Nose/ Eye Tearin= Runny Nose/Eyes GI Upset > 30mins: 2= Nausea/Diarrhea Tremor Observation of Outstretched Hands: 1= Tremor [place], Not Seen Yawning Observation: 0= None Anxiety or Irritability: 1=Feels Anxious/Irritable Goose Flesh Skin: 3=Piloerection COWS Score: 15 BHS Progress Note (SOAP) Subjective: pt states she feels like she is in withdrawal Objective: 11/10/17 15:13 Vital Signs - 24 hr 11/09/17 11/09/17 11/10/17 19:01 22:38 00:30 Temperature 98.7 F 98.4 F Pulse Rate 94 H 88 Respiratory 18 16 16 Rate Blood Pressure 115/68 113/80 11/10/17 11/10/17 11/10/17 03:30 07:27 10:43 Temperature 98.2 F 98.2 F Pulse Rate 83 84 Respiratory 16 18 18 Rate Blood Pressure 114/61 112/74 11/10/17 14:03 Temperature 98.2 F Pulse Rate 95 H Respiratory 18 Rate Blood Pressure 124/84 Breath Alcohol Content Breath Alcohol Content 0 Laboratory Tests 11/08/17 11/09/17 11/09/17 22:30 06:09 07:30 WBC 10.7 H RBC 4.37 Hgb 13.0 Hct 38.0 MCV 87.1 MCH 29.8 MCHC 34.2 RDW 12.8 D Plt Count 347 MPV 7.9 Sodium Potassium Chloride Carbon Dioxide Anion Gap BUN Creatinine Creat Clearance w eGFR POC Glucometer 238 Random Glucose Calcium Total Bilirubin AST ALT Alkaline Phosphatase Total Protein Albumin Urine Color Yellow Urine Appearance Slcloudy Urine pH 5.0 Ur Specific [place] 1.031 Urine Protein 1+ H Urine Glucose (UA) 3+ H D Urine Ketones Negative Urine Blood Negative Urine Nitrite Negative Urine Bilirubin Negative Urine Urobilinogen 2.0 H Ur Leukocyte Esterase Negative Urine WBC (Auto) 4 Urine RBC (Auto) 3 Ur Epithelial Cells Few Urine Bacteria Rare Hyaline Casts 1 Urine Mucus Many RPR Titer 11/09/17 11/09/17 11/10/17 07:30 07:30 05:56 WBC RBC Hgb Hct MCV MCH MCHC RDW Plt Count MPV Sodium 139 Potassium 4.1 Chloride 100 Carbon Dioxide 29 Anion Gap 10 BUN 12 Creatinine 0.7 Creat Clearance w eGFR > 60 POC Glucometer 248 Random Glucose 295 H Calcium 9.0 Total Bilirubin 0.2 AST 10 L ALT 16 Alkaline Phosphatase 92 Total Protein 6.2 L Albumin 2.8 L Urine Color Urine Appearance Urine pH Ur Specific [place] Urine Protein Urine Glucose (UA) Urine Ketones Urine Blood Urine Nitrite Urine Bilirubin Urine Urobilinogen Ur Leukocyte Esterase Urine WBC (Auto) Urine RBC (Auto) Ur Epithelial Cells Urine Bacteria Hyaline Casts Urine Mucus RPR Titer Nonreactive low albumin/protein, abnl UA, nl VS Assessment: 11/10/17 15:89 yo female with hx of nicotine, crack/ cocaine and heroin dependence is here for detox. Plan: continue methadone detox, d/w pt to use prn medications as needed for Sx relief
[2017-11-10] MEDS: THIAMINE HCL 100 MG TABLET (FP) PO SCH (22:10)
[2017-11-10] MEDS: ZOLPIDEM TARTRATE 10 MG TABLET (PARK CARE ONLY) PO PRN (22:11)
[2017-11-10] MEDS: P-EPHED 60MG/TRIPROLIDI 2.5MG TABLET PO PRN (22:31)
[2017-11-11] MEDS: diazePAM 5 MG TABLET PO PRN ×3 (06:04→18:11)
[2017-11-11] MEDS: GABAPENTIN 400 MG CAPSULE (FP) PO SCH ×3 (06:06→22:09)
[2017-11-11] MEDS: metFORMIN HCL 500 MG TABLET (FP) PO SCH (06:06)
[2017-11-11] MEDS: DOCUSATE SODIUM 100 MG CAPSULE (FP) PO SCH ×3 (06:06→22:08)
[2017-11-11] MEDS ORDERED: METHADONE HCL 5 MG TABLET (FOR DETOX USE ONLY) PO ONE (10:00)
[2017-11-11] MEDS: FLUTICASONE PROP 0.05% 16 GM NASAL SPRAY NS SCH (10:42)
[2017-11-11] MEDS: PRENATAL VITAMINS W/ FOLIC ACID TABLET (FP) PO SCH (10:42)
[2017-11-11] MEDS: LISINOPRIL 10 MG TABLET (FP) PO SCH (10:42)
[2017-11-11] MEDS: BUDESONIDE/FORMETEROL FUMARATE 160/4.5 mcg INHALER IH SCH ×2 (10:42→22:08)
[2017-11-11] MEDS: ASPIRIN 81 MG CHEWABLE TABLETS PO SCH (10:43)
[2017-11-11] MEDS: NAPROXEN 500 MG TABLET (FP) PO SCH ×2 (10:44→22:09)
[2017-11-11] MEDS: NICOTINE 14 MG/24 HOURS TOPICAL PATCH TD SCH (10:46)
[2017-11-11] MEDS ORDERED: hydrOXYzine PAMOATE 50 MG CAPSULE (FP) PO PRN (11:20)
--- NOTE | 2017-11-11 15:31 | PN ---
BHS Progress Note (SOAP) Subjective: pt states she has a lot of anxiety and would like additoinal meds- was getting trazodone as an outpt Objective: 11/11/17 15:29 Vital Signs - 24 hr 11/10/17 11/10/17 11/11/17 17:52 22:50 00:30 Temperature 98.2 F 98.1 F Pulse Rate 90 91 H Respiratory 18 20 18 Rate Blood Pressure 108/66 145/91 11/11/17 11/11/17 11/11/17 03:30 06:36 10:00 Temperature 97.7 F 97.7 F Pulse Rate 105 H 101 H Respiratory 16 18 20 Rate Blood Pressure 146/90 132/75 Laboratory Tests 11/08/17 11/09/17 11/09/17 22:30 06:09 07:30 WBC 10.7 H RBC 4.37 Hgb 13.0 Hct 38.0 MCV 87.1 MCH 29.8 MCHC 34.2 RDW 12.8 D Plt Count 347 MPV 7.9 Sodium Potassium Chloride Carbon Dioxide Anion Gap BUN Creatinine Creat Clearance w eGFR POC Glucometer 238 Random Glucose Calcium Total Bilirubin AST ALT Alkaline Phosphatase Total Protein Albumin Urine Color Yellow Urine Appearance Slcloudy Urine pH 5.0 Ur Specific [place] 1.031 Urine Protein 1+ H Urine Glucose (UA) 3+ H D Urine Ketones Negative Urine Blood Negative Urine Nitrite Negative Urine Bilirubin Negative Urine Urobilinogen 2.0 H Ur Leukocyte Esterase Negative Urine WBC (Auto) 4 Urine RBC (Auto) 3 Ur Epithelial Cells Few Urine Bacteria Rare Hyaline Casts 1 Urine Mucus Many RPR Titer 11/09/17 11/09/17 11/10/17 07:30 07:30 05:56 WBC RBC Hgb Hct MCV MCH MCHC RDW Plt Count MPV Sodium 139 Potassium 4.1 Chloride 100 Carbon Dioxide 29 Anion Gap 10 BUN 12 Creatinine 0.7 Creat Clearance w eGFR > 60 POC Glucometer 248 Random Glucose 295 H Calcium 9.0 Total Bilirubin 0.2 AST 10 L ALT 16 Alkaline Phosphatase 92 Total Protein 6.2 L Albumin 2.8 L Urine Color Urine Appearance Urine pH Ur Specific [place] Urine Protein Urine Glucose (UA) Urine Ketones Urine Blood Urine Nitrite Urine Bilirubin Urine Urobilinogen Ur Leukocyte Esterase Urine WBC (Auto) Urine RBC (Auto) Ur Epithelial Cells Urine Bacteria Hyaline Casts Urine Mucus RPR Titer Nonreactive 11/11/17 06:04 WBC RBC Hgb Hct MCV MCH MCHC RDW Plt Count MPV Sodium Potassium Chloride Carbon Dioxide Anion Gap BUN Creatinine Creat Clearance w eGFR POC Glucometer 185 Random Glucose Calcium Total Bilirubin AST ALT Alkaline Phosphatase Total Protein Albumin Urine Color Urine Appearance Urine pH Ur Specific [place] Urine Protein Urine Glucose (UA) Urine Ketones Urine Blood Urine Nitrite Urine Bilirubin Urine Urobilinogen Ur Leukocyte Esterase Urine WBC (Auto) Urine RBC (Auto) Ur Epithelial Cells Urine Bacteria Hyaline Casts Urine Mucus RPR Titer MS> 100 f/s > 200 Assessment: 11/11/17 15:30 52 yo female with hx of nicotine, crack/ cocaine and heroin dependence is here for heroin detox. Plan: pt to conitnue with methadone detox, pt has prn valium and vistaril added for anxiety, a re-referral to for chnaging meds done, pt also on ambine 10mg for sleep
[2017-11-11] MEDS: ZOLPIDEM TARTRATE 10 MG TABLET (PARK CARE ONLY) PO PRN (22:08)
[2017-11-11] MEDS: CYCLOBENZAPRINE HCL 10 MG TABLET (FP) PO PRN (22:09)
[2017-11-11] MEDS: THIAMINE HCL 100 MG TABLET (FP) PO SCH (22:09)
[2017-11-12] MEDS: DOCUSATE SODIUM 100 MG CAPSULE (FP) PO SCH ×3 (06:05→22:20)
[2017-11-12] MEDS: GABAPENTIN 400 MG CAPSULE (FP) PO SCH ×3 (06:05→22:20)
[2017-11-12] MEDS: metFORMIN HCL 500 MG TABLET (FP) PO SCH (06:05)
[2017-11-12] MEDS ORDERED: METHADONE HCL 10 MG TABLET (FOR DETOX USE ONLY) PO ONE (10:00)
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
[2017-11-12] MEDS: FLUTICASONE PROP 0.05% 16 GM NASAL SPRAY NS SCH (10:40)
[2017-11-12] MEDS: PRENATAL VITAMINS W/ FOLIC ACID TABLET (FP) PO SCH (10:40)
[2017-11-12] MEDS: ASPIRIN 81 MG CHEWABLE TABLETS PO SCH (10:41)
[2017-11-12] MEDS: LISINOPRIL 10 MG TABLET (FP) PO SCH (10:41)
[2017-11-12] MEDS: NICOTINE 14 MG/24 HOURS TOPICAL PATCH TD SCH (10:41)
[2017-11-12] MEDS: BUDESONIDE/FORMETEROL FUMARATE 160/4.5 mcg INHALER IH SCH ×2 (10:41→22:19)
[2017-11-12] MEDS: NAPROXEN 500 MG TABLET (FP) PO SCH ×2 (10:41→22:20)
[2017-11-12] MEDS ORDERED: MINERAL OIL ENEMA 133 ML ENEMA PR ONE (16:45)
[2017-11-12] MEDS: ZOLPIDEM TARTRATE 10 MG TABLET (PARK CARE ONLY) PO PRN (21:34)
[2017-11-12] MEDS: CYCLOBENZAPRINE HCL 10 MG TABLET (FP) PO PRN (22:20)
[2017-11-12] MEDS: THIAMINE HCL 100 MG TABLET (FP) PO SCH (22:20)
--- NOTE | 2017-11-12 23:46 | PN ---
BHS Progress Note (SOAP) Subjective: constipation Sleep disturbance Shakes Objective: 11/12/17 23:45 A & O x 3 Anxious 11/12/17 23:45 not in acute distress Abdomen distended, non tender with positive bowel sounds Assessment: 11/12/17 23:45 withdrawal sx Plan: continue detox Increase hydration Enema for constipation
[2017-11-13] MEDS ORDERED: METHADONE HCL 5 MG TABLET (FOR DETOX USE ONLY) PO ONE (06:00)
[2017-11-13] MEDS: metFORMIN HCL 500 MG TABLET (FP) PO SCH (06:12)
[2017-11-13] MEDS: DOCUSATE SODIUM 100 MG CAPSULE (FP) PO SCH (06:12)
[2017-11-13] MEDS: GABAPENTIN 400 MG CAPSULE (FP) PO SCH (06:13)
[2017-11-13 10:46] VITALS: BP 127/78; PULSE 94; TEMP 97.9
--- NOTE | 2017-11-13 15:27 | DS ---
[facility] Detox Discharge Summary Admission Date: 11/08/17 Discharge Date: 11/13/17 - History Present History: Alcohol Dependence, Cocaine Dependence, Opioid Dependence - Physical Exam Results Vital Signs: Vital Signs Temperature 97.9 F 11/13/17 10:45 Pulse Rate 94 H 11/13/17 10:45 Respiratory Rate 18 11/13/17 10:45 Blood Pressure 127/78 11/13/17 10:45 O2 Sat by Pulse Oximetry (%) Pertinent Admission Physical Exam Findings: Withdrawal sx Laboratory Last Values WBC 10.7 K/mm3 (4.0-10.0) H 11/09/17 07:30 RBC 4.37 M/mm3 (3.60-5.2) 11/09/17 07:30 Hgb 13.0 GM/dL (10.7-15.3) 11/09/17 07:30 Hct 38.0 % (32.4-45.2) 11/09/17 07:30 MCV 87.1 fl (80-96) 11/09/17 07:30 MCH 29.8 pg (25.7-33.7) 11/09/17 07:30 MCHC 34.2 g/dl (32.0-36.0) 11/09/17 07:30 RDW 12.8 % (11.6-15.6) D 11/09/17 07:30 Plt Count 347 K/MM3 (134-434) 11/09/17 07:30 MPV 7.9 fl (7.5-11.1) 11/09/17 07:30 Sodium 139 mmol/L (136-145) 11/09/17 07:30 Potassium 4.1 mmol/L (3.5-5.1) 11/09/17 07:30 Chloride 100 mmol/L (98-107) 11/09/17 07:30 Carbon Dioxide 29 mmol/L (21-32) 11/09/17 07:30 Anion Gap 10 (8-16) 11/09/17 07:30 BUN 12 mg/dL (7-18) 11/09/17 07:30 Creatinine 0.7 mg/dL (0.55-1.02) 11/09/17 07:30 Creat Clearance w eGFR > 60 (>60) 11/09/17 07:30 POC Glucometer 233 UNITS (80-120) 11/13/17 06:15 Random Glucose 295 mg/dL (74-106) H 11/09/17 07:30 Calcium 9.0 mg/dL (8.5-10.1) 11/09/17 07:30 Total Bilirubin 0.2 mg/dL (0.2-1.0) 11/09/17 07:30 AST 10 U/L (15-37) L 11/09/17 07:30 ALT 16 U/L (12-78) 11/09/17 07:30 Alkaline Phosphatase 92 U/L (45-117) 11/09/17 07:30 Total Protein 6.2 g/dl (6.4-8.2) L 11/09/17 07:30 Albumin 2.8 g/dl (3.4-5.0) L 11/09/17 07:30 Urine Color Yellow 11/08/17 22:30 Urine Appearance Slcloudy 11/08/17 22:30 Urine pH 5.0 (5.0-8.0) 11/08/17 22:30 Ur Specific [place] 1.031 (1.001-1.035) 11/08/17 22:30 Urine Protein 1+ (NEGATIVE) H 11/08/17 22:30 Urine Glucose (UA) 3+ (NEGATIVE) H D 11/08/17 22:30 Urine Ketones Negative (NEGATIVE) 11/08/17 22:30 Urine Blood Negative (NEGATIVE) 11/08/17 22:30 Urine Nitrite Negative (NEGATIVE) 11/08/17 22:30 Urine Bilirubin Negative (<2.0 mg/dL) 11/08/17 22:30 Urine Urobilinogen 2.0 mg/dL (0.2-1.0) H 11/08/17 22:30 Ur Leukocyte Esterase Negative (NEGATIVE) 11/08/17 22:30 Urine WBC (Auto) 4 /hpf (3-5) 11/08/17 22:30 Urine RBC (Auto) 3 /hpf (0-3) 11/08/17 22:30 Ur Epithelial Cells Few /HPF (FEW) 11/08/17 22:30 Urine Bacteria Rare /hpf (NONE SEEN) 11/08/17 22:30 Hyaline Casts 1 /lpf 11/08/17 22:30 Urine Mucus Many 11/08/17 22:30 RPR Titer Nonreactive (NONREACTIVE) 11/09/17 07:30 Labs noted - Treatment Hospital Course: Detox Protocol Followed, Detoxed Safely, Responded well, Discharged Condition Good, Rehab Referral Accepted Patient has Accepted a Rehab Referral to: [facility] - Medication Discharge Medications: Ambulatory Orders Zolpidem Tartrate [Ambien] 10 mg PO HS 06/10/16 Albuterol Sulfate Inhaler - [Ventolin HFA Inhaler -] 2 inh PO Q4H PRN #1 Fluticasone Prop 0.05% Nasal [Flonase -] 2 spray NS DAILY #1 spray 06/16/16 Cyclobenzaprine HCl [Flexeril 10 mg] 10 mg PO TID PRN 07/08/16 Docusate Sodium [Colace -] 100 mg PO TID 07/13/16 Naproxen [Naprosyn -] 500 mg PO BID 07/13/16 Aspirin [ASA -] 81 mg PO DAILY #30 mg 08/02/16 Gabapentin [Neurontin -] 400 mg PO Q8H #90 capsule 08/02/16 metFORMIN HCL [Glucophage -] 500 mg PO DAILY #30 mg 08/02/16 Fluticasone/Salmeterol [Advair 250-50 Diskus] 1 puff IH BID 11/08/17 Lisinopril [Prinivil] 20 mg PO DAILY 11/08/17 Salmeterol/Fluticasone [Advair 250Mcg/50Mcg -] 1 inh PO DAILY 11/08/17 - Diagnosis (1) Alcohol dependence with uncomplicated withdrawal Status: Acute (2) Cocaine dependence Status: Acute Qualifiers: Complication of substance-induced condition: with unspecified complication (3) Insomnia Status: Acute (4) Neuropathy Status: Acute (5) Nicotine dependence Status: Acute Qualifiers: Nicotine product type: cigarettes Substance use status: uncomplicated Qualified Code(s): F17.210 - Nicotine dependence, cigarettes, uncomplicated (6) Opioid dependence Status: Acute (7) Opioid dependence with withdrawal Status: Acute (8) Substance induced mood disorder Status: Acute (9) DM2 (diabetes mellitus, type 2) Status: Chronic Qualifiers: Diabetes mellitus correction insulin use: without correction use Chronic kidney disease stage: unspecified stage (10) Essential hypertension Status: Chronic - AMA Did Patient Leave Against Medical Advice: No
== END 2017-11-13 09:44 | disposition home or self-care (01) | DRG 773 ==
LOC: YASAS 13:38 → Y6N 20:39
PROVIDERS: ADMIT Surgery; ATTEND Surgery
PROC: HZ2ZZZZ Detoxification Services for Substance Abuse Treatment (ICD-10-PCS; principal; 2017-11-08)
DX: F11.23 Opioid dependence with withdrawal (principal); F10.230 Alcohol dependence with withdrawal, uncomplicated; F14.20 Cocaine dependence, uncomplicated; F12.20 Cannabis dependence, uncomplicated; F17.210 Nicotine dependence, cigarettes, uncomplicated; F41.8 Other specified anxiety disorders; F19.24 Other psychoactive substance dependence with psychoactive substance-induced mood disorder; F19.280 Other psychoactive substance dependence with psychoactive substance-induced anxiety disorder; F43.10 Post-traumatic stress disorder, unspecified; F39 Unspecified mood [affective] disorder; F20.0 Paranoid schizophrenia; F31.9 Bipolar disorder, unspecified; I10 Essential (primary) hypertension; G47.00 Insomnia, unspecified; G62.9 Polyneuropathy, unspecified; E11.9 Type 2 diabetes mellitus without complications; R82.90 Unspecified abnormal findings in urine; E88.09 Other disorders of plasma-protein metabolism, not elsewhere classified; J45.909 Unspecified asthma, uncomplicated; Z87.42 Personal history of other diseases of the female genital tract; Z91.013 Allergy to seafood; Z86.69 Personal history of other diseases of the nervous system and sense organs; Z79.84 Long term (current) use of oral hypoglycemic drugs; Z91.5 Personal history of self-harm
CPT/HCPCS: 36415; 80053; 81003; 81015; 82962; 85027; 86593; 93005; 93010; J0735

== ENCOUNTER 2018-08-08 11:50 | Inpatient (IN) | payer OTHER ==
[2018-08-08 14:17] VITALS: BMI 25.4
--- NOTE | 2018-08-08 14:41 | HP ---
COWS - Scale Resting Pulse: 1= [place] 81-100 Sweatin= Chills/Flushing Restless Observation: 5= Unable to Sit Still Pupil Size: 0= Normal to Room Light Bone or Joint Aches: 2= Severe Diffuse Aches Runny Nose/ Eye Tearin= Nasal Congestion GI Upset > 30mins: 2= Nausea/Diarrhea Tremor Observation: 0= None Yawning Observation: 0= None Anxiety or Irritability: 2=Irritable/Anxious Goose Flesh Skin: 0=Smooth Skin COWS Score: 14 CIWA Score Nausea/Vomitin-No Nausea/No Vomiting Muscle Tremors: 4-Moderate,w/Arms Extend Anxiety: 4-Mod. Anxious/Guarded Agitation: 4-Moderately Restless Paroxysmal Sweats: No Perspiration Orientation: 0-Oriented Tacttile Disturbances: 0-None Auditory Disturbances: 0-None Visual Disturbances: 0-None Headache: 0-None Present CIWA-Ar Total Score: 12 - Admission Criteria [facility]ASAS Guidelines: Admission for Medically Managed Detox: Requires at least one of the followin. CIWA greater than 12 2. Seizures within the past 24 hours 3. Delirium tremens within the past 24 hours 4. Hallucinations within the past 24 hours 5. Acute intervention needed for co occurring medical disorder 6. Acute intervention needed for co occurring psychiatric disorder 7. Severe withdrawal that cannot be handled at a lower level of care (continued vomiting, continued diarrhea, abnormal vital signs) requiring intravenous medication and/or fluids 8. Admission [facility] Allergies/Adverse Reactions: Allergies Allergy/AdvReac Type Severity Reaction Status Date / Time Fish Containing Products Allergy Severe Hives Verified 08/08/18 14:01 No Known Drug Allergies Allergy Severe Verified 08/08/18 14:01 History of Present Illness: pt here requesting detox from heroin use , reports 3 bundles/day via inhalation , reports 5-yrs use , prior sobriety after program @ [facility] and employment . reports latest use today 8 am . current symptoms as above . Pt. reports constipation x 2 weeks, unable to have BM with increasing abdominal pain and foul smelling breath . cocaine use ; reports " all I could " 300-400 $ /day etoh " not that much " : 6-pk beer/day , reports tremors if not drinking , latest use last night since age " I can't remember , maybe 32 " tobacco : 2 ppd PMHX: asthma, DM II, HTN, Seizure d/o , bipolar and schizophrenia. Latest seizure 2 months ago , denies meds " I don't take Dilantin , no meds > 2 years " , BTL , suicide attempt 10 years ago . meds - see list , pt declines to provide " it's all in my record " menopausal Exam Limitations: Clinical Condition - Ebola screening Have you traveled outside of the country in the last 21 days: No Have you had contact with anyone from an Ebola affected area: No Do you have a fever: No - Review of Systems Constitutional: See HPI, Loss of Appetite EENT: reports: Nose Congestion, Other (" I need glasses ") Respiratory: reports: Shortness of Breath Cardiac: reports: No Symptoms Reported GI: reports: See HPI, Abdominal Distended, Constipated (x 2 weeks), Abdominal cramping : reports: Dysuria Musculoskeletal: reports: Joint Pain (left ankle x 2 weeks w/ o h/o trauma/ injury , reports swelling in left ankle) Integumentary: reports: No Symptoms Reported Neuro: reports: Seizure Endocrine: reports: See HPI Psychiatric: reports: Orientated x3, Agitated, Anxious Patient History - Patient Medical History Hx Anemia: No Hx Asthma: No Hx Chronic Obstructive Pulmonary Disease (COPD): No Hx Cancer: No Hx Cardiac Disorders: No Hx Congestive Heart Failure: No Hx Hypertension: Yes Hx Hypercholesterolemia: No Hx Pacemaker: No HX Cerebrovascular Accident: No Hx Seizures: Yes (R/T to drug 2001) Hx Dementia: No Hx Diabetes: Yes Hx Gastrointestinal Disorders: No Hx Liver Disease: No Hx Genitourinary Disorders: No Hx Sexually Transmitted Disorders: Yes (Syphilis treated 1986) Hx Renal Disease (ESRD): No Hx Thyroid Disease: No Hx Human Immunodeficiency Virus (HIV): No (2016 last negative) Hx Hepatitis C: No Hx Depression: Yes Hx Suicide Attempt: Yes (2016 by cutting wrist) Hx Bipolar Disorder: No Hx Schizophrenia: Yes - Patient Surgical History Past Surgical History: Yes Hx Cholecystectomy: Yes Other Surgical History: Tubal ligation 1991 - PPD History Date: 11/10/17 Results: 0mm - Reproductive History Last Menstrual Period: 06/03/13 - Smoking Cessation Smoking history: Current every day smoker Have you smoked in the past 12 months: Yes Aproximately how many cigarettes per day: 10 Cigars Per Day: 0 Hx Chewing Tobacco Use: No Initiated information on smoking cessation: No - Substances abused Heroin Substance route: Inhalation Frequency: Daily Amount used: 2 to 3 bundles Age of first use: 42 Date of last use: 08/08/18 Crack Substance route: Smoking Frequency: Daily Amount used: 100 dollars Age of first use: 21 Date of last use: 08/08/18 Alcohol Substance route: Oral Frequency: Daily Amount used: 6 packs Age of first use: 22 Date of last use: 08/07/18 Family Disease History - Family Disease History Family Disease History: Diabetes: Mother (d.), Sister (d. ), Other: Mother Admission Physical Exam S - Vital Signs Vital Signs: Vital Signs - 24 hr 08/08/18 14:01 Temperature 97.7 F Pulse Rate 95 H Respiratory 16 Rate Blood Pressure 128/85 - Physical General Appearance: Yes: Moderate Distress, Severe Distress, Tremorous, Irritable, Anxious HEENTM: Yes: EOMI, Hearing grossly Normal, Normocephalic, Normal Voice, Other ( malodorous breath) Respiratory: Yes: Chest Non-Tender, Lungs Clear, Decreased Breath Sounds, No Respiratory Distress Neck: Yes: No masses,lesions,Nodules, Trachea in good position Cardiology: Yes: Regular Rhythm, Regular Rate, S1, S2, Tachycardia Abdominal: Yes: Distended, Guarding, Tenderness Genitourinary: Yes: Hesitency Musculoskeletal: Yes: Gait Steady, Joint Stiffness (left ankle decreased ROM , tenderness , + edema, no deformity) Extremities: Yes: Normal Range of Motion, Tremors, Swelling (left ankle edema, erythema , tenderness to palpation) Neurological: Yes: Alert, Motor Strength 5/5, Numbness (left foot and ankle in sock pattern , mild left foot drop .), Sensory Deficit (left foot and ankle in sock pattern) Integumentary: Yes: Warm - Addiitonal Findings: sent to ER for obstipation, abdominal pain , dyspnea , dysuria and left ankle pain . Report given to Dr Cosme . Pt left via EMS . - Diagnostic (1) Alcohol dependence with uncomplicated withdrawal Current Visit: Yes Status: Acute (2) Cocaine dependence Current Visit: Yes Status: Chronic Qualifiers: Complication of substance-induced condition: with unspecified complication (3) Nicotine dependence Current Visit: Yes Status: Acute Qualifiers: Nicotine product type: cigarettes Substance use status: uncomplicated Qualified Code(s): F17.210 - Nicotine dependence, cigarettes, uncomplicated (4) Opioid dependence with withdrawal Current Visit: Yes Status: Acute Breathalyzer - Breathalyzer Breathalyzer: 0 Urine Drug Screen - Test Device Lot number: [id number] Expiration date: 03/03/20 - Control Is test valid?: Yes - Results Drug screen NEGATIVE: No Urine drug screen results: LOLLY-Cocaine, FEN-Fentanyl, MOP-Opiates Inpatient Rehab Admission - Rehab Decision to Admit Inpatient rehab admission?: No
[2018-08-08] MEDS ORDERED: METHADONE HCL 10 MG TABLET (FOR DETOX USE ONLY) PO ONE (23:00)
--- NOTE | 2018-08-08 23:10 | PN ---
STEVE Progress Note Note: Patient returned from ER where she was evaluated for abdominal pain. Patient is alert and oriented to person, place and time. Medically stable at this time. Patient will be transferred to the floor for detoxification as she has been admitted by Dr. Powell Medical Decision Making 08/08/18 19:22 Pt signed out to me by Dr. Chin. 53F who presents with abdominal pain pending CTAP. If negative, back to [facility]. 08/08/18 20:28 Impression: Status post cholecystectomy. Borderline dilatation of the common bile duct with mild dilatation of the central intrahepatic bile ducts. Correlate clinically for further evaluation. Partially distended stomach limiting evaluation of its wall without gross thickening. Moderate amount of fecal residue in the entire colon suggestive of constipation without gross wall thickening. There is apparent thickening of the urinary bladder wall likely due to partial distention. Correlate clinically to rule out cystitis. Lipase negative. Will d/c with PCP f/u.
[2018-08-08] MEDS ORDERED: chlordiazePOXIDE HCL 10 MG CAPSULE PO PRN (23:41)
[2018-08-08] MEDS ORDERED: MAGNESIUM HYDROX 2400MG/30ML ORAL SUSPENSION 30 ML CUP PO PRN (23:41)
[2018-08-08] MEDS ORDERED: MAG HYDROX/AL HYDROX/SIMETH 30 ML UNIT-DOSE CUP PO PRN (23:41)
[2018-08-08] MEDS ORDERED: NICOTINE POLACRILEX 4 MG GUM BUC PRN (23:41)
[2018-08-08] MEDS ORDERED: BISMUTH SUBSALICYLATE 524 MG/30 ML UD PO PRN (23:41)
[2018-08-08] MEDS ORDERED: MAGNESIUM CITRATE 300 ML BOTTLE PO PRN (23:41)
[2018-08-08] MEDS ORDERED: ACETAMINOPHEN 325 MG TABLET (FP) PO PRN ×2 (23:41)
[2018-08-08] MEDS ORDERED: MENTHOL/PHENOL 1 EACH UD MM PRN (23:41)
[2018-08-08] MEDS ORDERED: IBUPROFEN 400 MG TABLET (FP) PO PRN (23:41)
[2018-08-08] MEDS ORDERED: ALBUTEROL SO4 8 GM HFA INHALER IH PRN (23:44)
[2018-08-08] MEDS ORDERED: CYCLOBENZAPRINE HCL 10 MG TABLET (FP) PO PRN (23:44)
[2018-08-09] MEDS: chlordiazePOXIDE HCL 25 MG CAPSULE PO SCH ×3 (00:03→12:10)
[2018-08-09] MEDS: METHOCARBAMOL 500 MG TABLET PO PRN ×2 (00:04→19:42)
[2018-08-09] MEDS: cloNIDine HCL 0.1 MG TABLET PO PRN ×2 (00:05→22:21)
[2018-08-09] MEDS: GABAPENTIN 400 MG CAPSULE (FP) PO SCH ×3 (05:50→22:21)
[2018-08-09] MEDS ORDERED: DOCUSATE SODIUM 100 MG CAPSULE (FP) PO SCH (06:00)
[2018-08-09] MEDS: metFORMIN HCL 500 MG TABLET (FP) PO SCH (07:12)
[2018-08-09] MEDS ORDERED: METHADONE HCL 10 MG TABLET (FOR DETOX USE ONLY) PO ONE (10:00)
[2018-08-09] MEDS: FLUTICASONE PROP 0.05% 16 GM NASAL SPRAY NS SCH (10:28)
[2018-08-09] MEDS: NICOTINE 21 MG/24 HOURS TOPICAL PATCH TD SCH (10:28)
[2018-08-09] MEDS: LISINOPRIL 20 MG TABLET (FP) PO SCH (10:28)
[2018-08-09] MEDS: PRENATAL VITAMINS W/ FOLIC ACID TABLET (FP) PO SCH (10:28)
[2018-08-09] MEDS ORDERED: BISACODYL 5 MG TABLET.DR (FP) PO PRN (10:28)
[2018-08-09] MEDS ORDERED: LIDOCAINE 5% TOPICAL PATCH TP ONE (10:29)
[2018-08-09] MEDS ORDERED: HYDROCORTISONE 0.5% TOPICAL CREAM 30 GM TUBE TP PRN (10:30)
--- NOTE | 2018-08-09 10:33 | PN ---
[facility] CIWA - CIWA Score Nausea/Vomitin-No Nausea/No Vomiting Muscle Tremors: 3 Anxiety: 2 Agitation: 3 Paroxysmal Sweats: 3 Orientation: 0-Oriented Tacttile Disturbances: 0-None Auditory Disturbances: 0-None Visual Disturbances: 0-None Headache: 0-None Present CIWA-Ar Total Score: 11 S COWS - Scale Resting Pulse: 0= [place] 80 or Below Sweatin=Flushed/Facial Moisture Restless Observation: 1= Difficult to Sit Still Pupil Size: 0= Normal to Room Light Bone or Joint Aches: 2= Severe Diffuse Aches Runny Nose/ Eye Tearin= Nasal Congestion GI Upset > 30mins: 0= None Tremor Observation of Outstretched Hands: 2= Slight Tremor Visible Yawning Observation: 1= 1-2x During Session Anxiety or Irritability: 2=Irritable/Anxious Goose Flesh Skin: 0=Smooth Skin COWS Score: 11 [facility] Progress Note (SOAP) Subjective: I just moved my bowels and my stomach feels so much better left sciatica pain sweats body aches interrupted sleep anxiety small rash to my cheek Objective: 08/09/18 10:33 Vital Signs Temperature 98.1 F 08/09/18 10:19 Pulse Rate 78 08/09/18 10:19 Respiratory Rate 19 08/09/18 10:19 Blood Pressure 138/72 08/09/18 10:19 O2 Sat by Pulse Oximetry (%) Laboratory Tests 08/08/18 14:57 POC Glucometer 157 rest of labs pending aaox3 ambulating no acute distress Assessment: 08/09/18 10:34 withdrawal sx a small shun/rash like on right side of cheek noted; pt denies itching Plan: continue with detox increase fluids lidocaine patch bisacodyl 5mg daily as per pt request hydrocortizon cream
[2018-08-09 12:35] LABS: HEMATOCRIT 42.8 % (32.4-45.2); MCH 28.5 pg (25.7-33.7); MCHC 32.8 g/dl (32.0-36.0); MEAN CELL VOLUME 86.9 fl (80-96); PLATELET COUNT 292 K/MM3 (134-434); RBC 4.93 M/mm3 (3.60-5.2); RDW 13.8 % (11.6-15.6); WHITE BLOOD COUNT 8.5 K/mm3 (4.0-10.0)
[2018-08-09 13:19] LABS: ALK PHOS 105 U/L (45-117); ANION GAP 4 MMOL/L (8-16); BILIRUBIN,TOTAL 0.2 mg/dL (0.2-1); BLOOD UREA NITROGEN 14 mg/dL (7-18); CALCIUM 9.2 mg/dL (8.5-10.1); CHLORIDE 108 mmol/L (98-107); CO2 30 mmol/L (21-32); CREATININE 0.6 mg/dL (0.55-1.3); GLUCOSE,RANDOM 113 mg/dL (74-106); POTASSIUM 3.8 mmol/L (3.5-5.1); SGOT/AST 9 U/L (15-37); SGPT/ALT 14 U/L (13-61); SODIUM 141 mmol/L (136-145); TOT PROT 6.8 g/dl (6.4-8.2)
[2018-08-09] MEDS ORDERED: INSULIN SLIDING SCALE (NOVOLOG) 1 VIAL SQ ONE (17:13)
[2018-08-09] MEDS: SODIUM CHLORIDE NASAL SPRAY 44 ML BOTTLE NS PRN (17:31)
[2018-08-09] MEDS ORDERED: INSULIN (NOVOLOG) ASPART 100 UNITS/ML 10ML VIAL SQ SCH ×2 (17:45→22:00)
[2018-08-09] MEDS ORDERED: INSULIN SLIDING SCALE (NOVOLOG) 1 VIAL SQ SCH (22:00)
[2018-08-09] MEDS: THIAMINE HCL 100 MG TABLET (FP) PO SCH (22:21)
[2018-08-09] MEDS: chlordiazePOXIDE 5 MG CAPSULE PO SCH (22:22)
[2018-08-09] MEDS: LIDOCAINE PATCH REMOVAL MC SCH (22:23)
[2018-08-09] MEDS: MELATONIN 5 MG TABLETS PO PRN (22:23)
[2018-08-09] MEDS: INSULIN (NOVOLOG) ASPART 100 UNITS/ML 10ML VIAL SQ SCH (22:25)
[2018-08-10] MEDS: METHOCARBAMOL 500 MG TABLET PO PRN ×2 (02:11→10:42)
[2018-08-10] MEDS: hydrOXYzine PAMOATE 25 MG CAPSULE (FP) PO PRN ×3 (02:11→22:38)
[2018-08-10] MEDS: GABAPENTIN 400 MG CAPSULE (FP) PO SCH ×3 (06:16→22:38)
[2018-08-10] MEDS: chlordiazePOXIDE 5 MG CAPSULE PO SCH ×2 (06:16→14:22)
[2018-08-10] MEDS: INSULIN (NOVOLOG) ASPART 100 UNITS/ML 10ML VIAL SQ SCH ×4 (06:46→22:41)
[2018-08-10] MEDS: metFORMIN HCL 500 MG TABLET (FP) PO SCH (06:47)
--- NOTE | 2018-08-10 09:28 | PN ---
[facility] CIWA - CIWA Score Nausea/Vomitin-No Nausea/No Vomiting Muscle Tremors: 2 Anxiety: 2 Agitation: 2 Paroxysmal Sweats: 2 Orientation: 0-Oriented Tacttile Disturbances: 0-None Auditory Disturbances: 0-None Visual Disturbances: 0-None Headache: 0-None Present CIWA-Ar Total Score: 8 BHS COWS - Scale Resting Pulse: 1= [place] 81-100 Sweatin=Flushed/Facial Moisture Restless Observation: 1= Difficult to Sit Still Pupil Size: 0= Normal to Room Light Bone or Joint Aches: 2= Severe Diffuse Aches Runny Nose/ Eye Tearin= Nasal Congestion GI Upset > 30mins: 0= None Tremor Observation of Outstretched Hands: 1= Tremor [place], Not Seen Yawning Observation: 0= None Anxiety or Irritability: 1=Feels Anxious/Irritable Goose Flesh Skin: 0=Smooth Skin COWS Score: 9 BHS Progress Note (SOAP) Subjective: agitation sweats shoulder pain body aches Objective: 08/10/18 09:33 Vital Signs Temperature 97.2 F L 08/10/18 09:24 Pulse Rate 90 08/10/18 09:24 Respiratory Rate 18 08/10/18 09:24 Blood Pressure 107/63 08/10/18 09:24 O2 Sat by Pulse Oximetry (%) Laboratory Tests 08/08/18 08/08/18 08/08/18 14:31 14:57 23:35 WBC RBC Hgb Hct MCV MCH MCHC RDW Plt Count MPV Sodium Potassium Chloride Carbon Dioxide Anion Gap BUN Creatinine Creat Clearance w eGFR POC Glucometer 157 Random Glucose Calcium Total Bilirubin AST ALT Alkaline Phosphatase Total Protein Albumin POC Urine HCG, Qual Negative Negative RPR Titer HIV 1&2 Antibody Screen HIV P24 Antigen 08/09/18 08/09/18 08/09/18 07:30 07:30 07:30 WBC 8.5 RBC 4.93 Hgb 14.0 Hct 42.8 MCV 86.9 MCH 28.5 MCHC 32.8 RDW 13.8 Plt Count 292 MPV 8.0 Sodium 141 Potassium 3.8 Chloride 108 H Carbon Dioxide 30 Anion Gap 4 L BUN 14 Creatinine 0.6 Creat Clearance w eGFR 105.40 POC Glucometer Random Glucose 113 H Calcium 9.2 Total Bilirubin 0.2 AST 9 L ALT 14 Alkaline Phosphatase 105 Total Protein 6.8 Albumin 3.0 L POC Urine HCG, Qual RPR Titer HIV 1&2 Antibody Screen Negative HIV P24 Antigen Negative 08/09/18 08/09/18 08/09/18 07:30 16:41 22:20 WBC RBC Hgb Hct MCV MCH MCHC RDW Plt Count MPV Sodium Potassium Chloride Carbon Dioxide Anion Gap BUN Creatinine Creat Clearance w eGFR POC Glucometer 408 139 Random Glucose Calcium Total Bilirubin AST ALT Alkaline Phosphatase Total Protein Albumin POC Urine HCG, Qual RPR Titer Nonreactive HIV 1&2 Antibody Screen HIV P24 Antigen 08/10/18 06:19 WBC RBC Hgb Hct MCV MCH MCHC RDW Plt Count MPV Sodium Potassium Chloride Carbon Dioxide Anion Gap BUN Creatinine Creat Clearance w eGFR POC Glucometer 124 Random Glucose Calcium Total Bilirubin AST ALT Alkaline Phosphatase Total Protein Albumin POC Urine HCG, Qual RPR Titer HIV 1&2 Antibody Screen HIV P24 Antigen aaox3 ambulating no acute distress Assessment: 08/10/18 09:34 withdrawal sx Plan: continue detox increase fluids lidocaine patch x 2 ordered
[2018-08-10] MEDS ORDERED: LIDOCAINE 5% TOPICAL PATCH TP SCH (10:00)
[2018-08-10] MEDS ORDERED: METHADONE HCL 10 MG TABLET (FOR DETOX USE ONLY) PO ONE (10:00)
[2018-08-10] MEDS: METHYL SALICYLATE/MENTHOL OINT 30 GM TUBE TP SCH ×2 (10:12→22:40)
[2018-08-10] MEDS: NICOTINE 21 MG/24 HOURS TOPICAL PATCH TD SCH (10:12)
[2018-08-10] MEDS: LIDOCAINE 5% TOPICAL PATCH TP SCH (10:13)
[2018-08-10] MEDS: FLUTICASONE PROP 0.05% 16 GM NASAL SPRAY NS SCH (10:13)
[2018-08-10] MEDS: NAPROXEN 500 MG TABLET (FP) PO SCH ×2 (10:14→22:38)
[2018-08-10] MEDS: LISINOPRIL 20 MG TABLET (FP) PO SCH (10:14)
[2018-08-10] MEDS: PRENATAL VITAMINS W/ FOLIC ACID TABLET (FP) PO SCH (10:14)
[2018-08-10] MEDS ORDERED: guaiFENesin 200 MG/10 ML 10 ML UNIT-DOSE CUPS PO PRN (10:42)
[2018-08-10] MEDS: BUDESONIDE/FORMETEROL FUMARATE 80/4.5 mcg INHALER IH SCH ×2 (10:53→22:41)
[2018-08-10] MEDS: ASPIRIN 81 MG CHEWABLE TABLETS PO SCH (10:53)
--- NOTE | 2018-08-10 12:10 | PN ---
BHS Progress Note (SOAP) Subjective: i need to see psych for my mental medication; i cant remember off the top of my head right now diarrhea cough fishy vaginal smell with discharge Objective: 08/10/18 12:10 Vital Signs Temperature 97.2 F L 08/10/18 09:24 Pulse Rate 90 08/10/18 09:24 Respiratory Rate 18 08/10/18 09:24 Blood Pressure 107/63 08/10/18 09:24 O2 Sat by Pulse Oximetry (%) aaox3 ambulating no acute distress Assessment: 08/10/18 12:10 mild withdrawal sx Plan: continue detox increase fluids lidocaine patch x 2 to apply to different part of body robitussin prn flagly 500mg tid x 7days
[2018-08-10] MEDS: metroNIDAZOLE 250 MG TABLET PO SCH ×2 (14:23→22:38)
[2018-08-10] MEDS ORDERED: chlordiazePOXIDE HCL 10 MG CAPSULE PO PRN (21:00)
[2018-08-10] MEDS: THIAMINE HCL 100 MG TABLET (FP) PO SCH (22:38)
[2018-08-10] MEDS: chlordiazePOXIDE HCL 10 MG CAPSULE PO SCH (22:38)
[2018-08-10] MEDS: LIDOCAINE PATCH REMOVAL MC SCH (22:39)
[2018-08-10] MEDS: MELATONIN 5 MG TABLETS PO PRN (22:42)
[2018-08-11] MEDS: chlordiazePOXIDE HCL 10 MG CAPSULE PO SCH (05:30)
[2018-08-11] MEDS: GABAPENTIN 400 MG CAPSULE (FP) PO SCH ×3 (05:31→22:26)
[2018-08-11] MEDS: metroNIDAZOLE 250 MG TABLET PO SCH ×3 (05:32→22:26)
[2018-08-11] MEDS: INSULIN (NOVOLOG) ASPART 100 UNITS/ML 10ML VIAL SQ SCH (07:11)
[2018-08-11] MEDS: metFORMIN HCL 500 MG TABLET (FP) PO SCH (07:11)
[2018-08-11] MEDS ORDERED: METHADONE HCL 10 MG TABLET (FOR DETOX USE ONLY) PO ONE (10:00)
[2018-08-11] MEDS: ASPIRIN 81 MG CHEWABLE TABLETS PO SCH (10:24)
[2018-08-11] MEDS: LISINOPRIL 20 MG TABLET (FP) PO SCH (10:24)
[2018-08-11] MEDS: PRENATAL VITAMINS W/ FOLIC ACID TABLET (FP) PO SCH (10:24)
[2018-08-11] MEDS: NAPROXEN 500 MG TABLET (FP) PO SCH ×2 (10:24→22:26)
[2018-08-11] MEDS: BUDESONIDE/FORMETEROL FUMARATE 80/4.5 mcg INHALER IH SCH ×2 (10:27→22:25)
[2018-08-11] MEDS: FLUTICASONE PROP 0.05% 16 GM NASAL SPRAY NS SCH (10:27)
[2018-08-11] MEDS: LIDOCAINE 5% TOPICAL PATCH TP SCH (10:28)
[2018-08-11] MEDS: METHYL SALICYLATE/MENTHOL OINT 30 GM TUBE TP SCH ×2 (10:28→22:28)
[2018-08-11] MEDS: SODIUM CHLORIDE NASAL SPRAY 44 ML BOTTLE NS PRN ×2 (10:29→17:40)
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
[2018-08-11] MEDS: hydrOXYzine PAMOATE 25 MG CAPSULE (FP) PO PRN ×2 (12:49→22:26)
--- NOTE | 2018-08-11 13:48 | PN ---
BHS Progress Note (SOAP) Subjective: feeling much better little anxiety Objective: 08/11/18 13:47 Vital Signs Temperature 98.2 F 08/11/18 09:59 Pulse Rate 105 H 08/11/18 09:59 Respiratory Rate 18 08/11/18 09:59 Blood Pressure 124/76 08/11/18 09:59 O2 Sat by Pulse Oximetry (%) aaox3 ambulating no acute distress Assessment: 08/11/18 13:48 mild withdrawal sx Plan: continue with detox increase fluids rx sent to pharmacy d/c in am
[2018-08-11] MEDS: METHOCARBAMOL 500 MG TABLET PO PRN (17:37)
[2018-08-11] MEDS: THIAMINE HCL 100 MG TABLET (FP) PO SCH (22:26)
[2018-08-11] MEDS: LIDOCAINE PATCH REMOVAL MC SCH (22:27)
[2018-08-12] MEDS ORDERED: METHADONE HCL 5 MG TABLET (FOR DETOX USE ONLY) PO ONE (06:00)
[2018-08-12] MEDS: metFORMIN HCL 500 MG TABLET (FP) PO SCH (06:05)
[2018-08-12] MEDS: metroNIDAZOLE 250 MG TABLET PO SCH (06:05)
[2018-08-12] MEDS: GABAPENTIN 400 MG CAPSULE (FP) PO SCH (06:05)
--- NOTE | 2018-08-12 09:26 | DS ---
[facility] Detox Discharge Summary Admission Date: 08/08/18 Discharge Date: 08/12/18 - History Present History: Cocaine Dependence, Opioid Dependence Additional Comments: Pt is discharged home today and is medically cleared. Pt is alert and oriented x3 and in no distress. Pt is encouraged to follow-up with her PMD and also follow-up with [facility] outpatient program. As per counselor's note, "Counselor met with client in order to conduct initial assessment. Clinician completed psychosocial 1 and 2 as well as Suicide Risk Assessment. Client declined at this time. Clinician informed her about [facility] outpatient if she changes her mind". Pertinent Past History: H/O asthma, DM II, HTN, Seizure d/o , bipolar and schizophrenia. - Physical Exam Results Vital Signs: Vital Signs Temperature 97.7 F 08/12/18 08:30 Pulse Rate 105 H 08/12/18 08:30 Respiratory Rate 20 08/12/18 08:30 Blood Pressure 157/97 08/12/18 08:30 O2 Sat by Pulse Oximetry (%) Lab Results WBC 8.5 K/mm3 (4.0-10.0) 08/09/18 07:30 RBC 4.93 M/mm3 (3.60-5.2) 08/09/18 07:30 Hgb 14.0 GM/dL (10.7-15.3) 08/09/18 07:30 Hct 42.8 % (32.4-45.2) 08/09/18 07:30 MCV 86.9 fl (80-96) 08/09/18 07:30 MCHC 32.8 g/dl (32.0-36.0) 08/09/18 07:30 RDW 13.8 % (11.6-15.6) 08/09/18 07:30 Plt Count 292 K/MM3 (134-434) 08/09/18 07:30 Sodium 141 mmol/L (136-145) 08/09/18 07:30 Potassium 3.8 mmol/L (3.5-5.1) 08/09/18 07:30 Chloride 108 mmol/L (98-107) H 08/09/18 07:30 Carbon Dioxide 30 mmol/L (21-32) 08/09/18 07:30 Anion Gap 4 MMOL/L (8-16) L 08/09/18 07:30 BUN 14 mg/dL (7-18) 08/09/18 07:30 Creatinine 0.6 mg/dL (0.55-1.3) 08/09/18 07:30 Random Glucose 113 mg/dL (74-106) H 08/09/18 07:30 Calcium 9.2 mg/dL (8.5-10.1) 08/09/18 07:30 Labs noted. Pertinent Admission Physical Exam Findings: withdrawal symptoms. - Treatment Hospital Course: Detox Protocol Followed, Detoxed Safely, Responded well, Discharged Condition Good - Medication Discharge Medications: Ambulatory Orders Docusate Sodium [Colace -] 100 mg PO TID 07/13/16 Gabapentin [Neurontin -] 400 mg PO Q8H #90 capsule 08/02/16 Fluticasone/Salmeterol [Advair 250-50 Diskus] 1 puff IH BID 11/08/17 Salmeterol/Fluticasone [Advair 250Mcg/50Mcg -] 1 inh PO DAILY 11/08/17 Albuterol Sulfate Inhaler - [Ventolin HFA Inhaler -] 2 inh PO Q4H PRN #1 inhaler 08/11/18 Aspirin [ASA -] 81 mg PO DAILY #30 mg 08/11/18 Bisacodyl [Bisacodyl -] 5 mg PO DAILY PRN #30 tablet. 08/11/18 Budesonide/Formeterol Fumarate [SYMBICORT 80/4.5mcg -] 2 puff IH BID #1 inhaler 08/11/18 Fluticasone Prop 0.05% Nasal [Flonase -] 2 spray NS DAILY #1 spray 08/11/18 Lisinopril [Prinivil] 20 mg PO DAILY #30 tablet 08/11/18 Naproxen [Naprosyn -] 500 mg PO BID #60 tablet 08/11/18 metFORMIN HCL [Glucophage -] 500 mg PO DAILY #30 mg 08/11/18 - Diagnosis (1) Alcohol dependence with uncomplicated withdrawal Status: Acute (2) Cocaine dependence Status: Acute Qualifiers: Complication of substance-induced condition: with unspecified complication (3) Opioid dependence with withdrawal Status: Acute (4) DM2 (diabetes mellitus, type 2) Status: Chronic Qualifiers: Diabetes mellitus adjunct faculty for medical terminology insulin use: without snf use Chronic kidney disease stage: unspecified stage (5) Essential hypertension Status: Chronic (6) Nicotine dependence Status: Chronic Qualifiers: Nicotine product type: cigarettes Substance use status: uncomplicated Qualified Code(s): F17.210 - Nicotine dependence, cigarettes, uncomplicated (7) Seizure Status: Chronic - AMA Did Patient Leave Against Medical Advice: No
[2018-08-12 10:00] VITALS: BP 126/69; PULSE 103; TEMP 98.1
== END 2018-08-12 09:54 | disposition home or self-care (01) | DRG 773 ==
LOC: YASAS 11:50 → UNDOADMIN 20:05 → Y6N 20:05
PROVIDERS: ADMIT Surgery; ATTEND Surgery
PROC: HZ2ZZZZ Detoxification Services for Substance Abuse Treatment (ICD-10-PCS; principal; 2018-08-08)
DX: F11.23 Opioid dependence with withdrawal (principal); F10.230 Alcohol dependence with withdrawal, uncomplicated; F14.20 Cocaine dependence, uncomplicated; F17.213 Nicotine dependence, cigarettes, with withdrawal; F25.9 Schizoaffective disorder, unspecified; F43.10 Post-traumatic stress disorder, unspecified; F19.24 Other psychoactive substance dependence with psychoactive substance-induced mood disorder; F19.282 Other psychoactive substance dependence with psychoactive substance-induced sleep disorder; F31.9 Bipolar disorder, unspecified; I10 Essential (primary) hypertension; E11.9 Type 2 diabetes mellitus without complications; G40.909 Epilepsy, unspecified, not intractable, without status epilepticus; J45.909 Unspecified asthma, uncomplicated; G62.9 Polyneuropathy, unspecified; R00.0 Tachycardia, unspecified; Z87.42 Personal history of other diseases of the female genital tract; Z91.013 Allergy to seafood; Z91.5 Personal history of self-harm; Z79.84 Long term (current) use of oral hypoglycemic drugs; Z79.4 Long term (current) use of insulin
CPT/HCPCS: 36415; 80053; 81025; 82962; 85027; 86593; 87389; J0735

== ENCOUNTER 2018-08-08 15:45 | Emergency (ER) | payer SELFPAY ==
[2018-08-08 15:56] VITALS: BP 128/59; PULSE 92; TEMP 98; BMI 25.4
--- NOTE | 2018-08-08 16:18 | PDOC ---
History of Present Illness - General Chief Complaint: Pain Stated Complaint: ABDOMIANL PAIN Time Seen by Provider: 08/08/18 16:18 - History of Present Illness Initial Comments: 08/08/18 16:19 Ms. Mariano is a 53 yo female w/ pmh of asthma, DMII, HTN, heroin abuse (3 bundles / day for approximately 5 years) last 8am today, 6-pack beer use / day ( latest last night), 2ppd current smoker, seizure disorder (not on medications), Bipolar disorder and schizophrenia who presents for evaluation of 2 week history of abdominal pain w/ 2 weeks of constipation. Patient reports she has had to strain to produce small stools and has not had a full BM in that time. S/ P GB removal and tubal ligation in . Has had to strain to urinate lately as well. The patient denies chest pain, shortness of breath, headache and dizziness. Denies fever, chills, nausea, vomit, and diarrhea. Denies dysuria, frequency, urgency and hematuria. Past History - Past Medical History Allergies/Adverse Reactions: Allergies Allergy/AdvReac Type Severity Reaction Status Date / Time Fish Containing Products Allergy Severe Hives Verified 08/08/18 14:01 No Known Drug Allergies Allergy Severe Verified 08/08/18 14:01 Home Medications: Ambulatory Orders Zolpidem Tartrate [Ambien] 10 mg PO HS 06/10/16 Albuterol Sulfate Inhaler - [Ventolin HFA Inhaler -] 2 inh PO Q4H PRN #1 Fluticasone Prop 0.05% Nasal [Flonase -] 2 spray NS DAILY #1 spray 06/16/16 Cyclobenzaprine HCl [Flexeril 10 mg] 10 mg PO TID PRN 07/08/16 Docusate Sodium [Colace -] 100 mg PO TID 07/13/16 Naproxen [Naprosyn -] 500 mg PO BID 07/13/16 Aspirin [ASA -] 81 mg PO DAILY #30 mg 08/02/16 Gabapentin [Neurontin -] 400 mg PO Q8H #90 capsule 08/02/16 metFORMIN HCL [Glucophage -] 500 mg PO DAILY #30 mg 08/02/16 Fluticasone/Salmeterol [Advair 250-50 Diskus] 1 puff IH BID 11/08/17 Lisinopril [Prinivil] 20 mg PO DAILY 11/08/17 Salmeterol/Fluticasone [Advair 250Mcg/50Mcg -] 1 inh PO DAILY 11/08/17 Anemia: No Asthma: No Cancer: No Cardiac Disorders: No CVA: No COPD: No CHF: No Dementia: No Diabetes: Yes GI Disorders: No Disorders: No HTN: Yes Hypercholesterolemia: No Kidney Stones: Yes Liver Disease: No Seizures: Yes (R/T to drug 2001) Thyroid Disease: No - Surgical History Cholecystectomy: Yes - Reproductive History PID: No - Suicide/Smoking/Psychosocial Hx Smoking History: Current every day smoker Have you smoked in the past 12 months: Yes Number of Cigarettes Smoked Daily: 10 Cigars Per Day: 0 Information on smoking cessation initiated: No 'Breaking Loose' booklet given: 11/08/17 Hx Alcohol Use: Yes Drug/Substance Use Hx: Yes Substance Use Type: Alcohol, Cocaine, Heroin Hx Substance Use Treatment: Yes (ast detox [facility] 07/13/16 - 08/03/16. ) Review of Systems - Review of Systems Comments:: 08/08/18 17:15 GENERAL/CONSTITUTIONAL: No fever or chills. No weakness. HEAD, EYES, EARS, NOSE AND THROAT: No change in vision. No ear pain or discharge. No sore throat. CARDIOVASCULAR: No chest pain or shortness of breath RESPIRATORY: No cough, wheezing, or hemoptysis. GASTROINTESTINAL: +Abdominal pain w/ constipation as described. No nausea, vomiting, or diarrhea. GENITOURINARY: No dysuria, frequency, or change in urination. MUSCULOSKELETAL: No joint or muscle swelling or pain. No neck or back pain. SKIN: No rash NEUROLOGIC: No headache, vertigo, loss of consciousness, or change in strength/ sensation. ENDOCRINE: No increased thirst. No abnormal weight change HEMATOLOGIC/LYMPHATIC: No anemia, easy bleeding, or history of blood clots. ALLERGIC/IMMUNOLOGIC: No hives or skin allergy. *Physical Exam - Vital Signs Last Vital Signs Temp Pulse Resp BP Pulse Ox 98 F 92 H 20 128/59 L 100 08/08/18 15:54 08/08/18 15:54 08/08/18 15:54 08/08/18 15:54 08/08/18 15:54 - Physical Exam Comments: 08/08/18 17:16 GENERAL: Awake, alert, and fully oriented, in no acute distress HEAD: No signs of trauma, normocephalic, atraumatic EYES: PERRLA, EOMI, sclera anicteric, conjunctiva clear ENT: Auricles normal inspection, hearing grossly normal, nares patent, oropharynx clear without exudates. Moist mucosa NECK: Normal ROM, supple, no lymphadenopathy, JVD, or masses LUNGS: No distress, speaks full sentences, clear to auscultation bilaterally HEART: Regular rate and rhythm, normal S1 and S2, no murmurs, rubs or gallops, peripheral pulses normal and equal bilaterally. ABDOMEN: +Diffuse abdominal ttp. Soft, normoactive bowel sounds. No guarding, no rebound. No masses EXTREMITIES: Normal inspection, Normal range of motion, no edema. No clubbing or cyanosis. NEUROLOGICAL: Cranial nerves II through XII grossly intact. Normal speech, normal gait, no focal sensorimotor deficits SKIN: Warm, Dry, normal turgor, no rashes or lesions noted. ED Treatment Course - LABORATORY CBC & Chemistry Diagram: 08/08/18 16:48 08/08/18 16:48 Medical Decision Making - Medical Decision Making 08/08/18 18:10 Ms. Mariano is a 53 yo female w/ pmh as described who presents for evaluation of abdominal pain and constipation concerning for SBO vs. constipation 2/2 drug abuse vs. acute abdominal process. Patient will be evaluated with CT abd/pelvis and laboratory evaluation. Patient given fluids and IV tylenol for pain control and hydration. 08/08/18 18:51 Labs grossly wnl as below. Patient pending CT read for dispo. 08/08/18 19:14 Patient signed out to Dr. Willson for further evaluation. Laboratory Results - last 24 hr 08/08/18 08/08/18 08/08/18 16:48 16:48 16:48 WBC 8.2 RBC 4.90 Hgb 14.0 Hct 42.1 MCV 85.9 MCH 28.7 MCHC 33.4 RDW 13.5 Plt Count 280 MPV 7.6 Absolute Neuts (auto) 3.7 Neutrophils % 45.0 Lymphocytes % 42.1 H Monocytes % 7.5 Eosinophils % 4.4 Basophils % 1.0 Nucleated RBC % 0 PT with INR 12.70 INR 1.08 PTT (Actin FS) 31.5 Sodium 139 Potassium 3.9 Chloride 104 Carbon Dioxide 28 Anion Gap 7 L BUN 12 Creatinine 0.6 Creat Clearance w eGFR 105.40 Random Glucose 161 H Lactic Acid Calcium 8.6 Total Bilirubin 0.2 AST 11 L ALT 12 L Alkaline Phosphatase 99 Total Protein 6.3 L Albumin 2.9 L Blood Type Antibody Screen 08/08/18 08/08/18 16:48 16:48 WBC RBC Hgb Hct MCV MCH MCHC RDW Plt Count MPV Absolute Neuts (auto) Neutrophils % Lymphocytes % Monocytes % Eosinophils % Basophils % Nucleated RBC % PT with INR INR PTT (Actin FS) Sodium Potassium Chloride Carbon Dioxide Anion Gap BUN Creatinine Creat Clearance w eGFR Random Glucose Lactic Acid 1.1 Calcium Total Bilirubin AST ALT Alkaline Phosphatase Total Protein Albumin Blood Type B NEGATIVE Antibody Screen Negative *DC/Admit/Observation/Transfer Diagnosis at time of Disposition: Abdominal pain Qualifiers: Abdominal location: unspecified location Qualified Code(s): R10.9 - Unspecified abdominal pain - Referrals - Patient Instructions - Post Discharge Activity
[2018-08-08] MEDS ORDERED: SODIUM CHLORIDE 1,000 ML IV STA (16:35)
[2018-08-08] MEDS ORDERED: ACETAMINOPHEN 1000 MG/100 ML VIAL (NON FORMULARY) IVPB ONE (16:39)
[2018-08-08 17:09] LABS: EOS % 4.4 % (0-4.5); HEMATOCRIT 42.1 % (32.4-45.2); LYMPH % 42.1 % (8-40); MCH 28.7 pg (25.7-33.7); MCHC 33.4 g/dl (32.0-36.0); MEAN CELL VOLUME 85.9 fl (80-96); MEAN PLT VOLUME 7.6 fl (7.5-11.1); MONO % 7.5 % (3.8-10.2); PLATELET COUNT 280 K/MM3 (134-434); RDW 13.5 % (11.6-15.6); WHITE BLOOD COUNT 8.2 K/mm3 (4.0-10.0)
[2018-08-08 17:21] LABS: INR 1.08 (0.83-1.09); PROTHROMBIN TIME (PATIENT) 12.7 SEC (9.7-13.0)
[2018-08-08] MEDS ORDERED: ACETAMINOPHEN INJECTION 100 ML IVPB ONE (17:21)
[2018-08-08 17:24] LABS: ACTIVATED PTT 31.5 SECONDS (25.2-36.5)
[2018-08-08 17:35] LABS: ALBUMIN 2.9 g/dl (3.4-5.0); ALK PHOS 99 U/L (45-117); ANION GAP 7 MMOL/L (8-16); BILIRUBIN,TOTAL 0.2 mg/dL (0.2-1); BLOOD UREA NITROGEN 12 mg/dL (7-18); CALCIUM 8.6 mg/dL (8.5-10.1); CHLORIDE 104 mmol/L (98-107); CO2 28 mmol/L (21-32); CREATININE 0.6 mg/dL (0.55-1.3); GLUCOSE,RANDOM 161 mg/dL (74-106); POTASSIUM 3.9 mmol/L (3.5-5.1); SGOT/AST 11 U/L (15-37); SGPT/ALT 12 U/L (13-61); SODIUM 139 mmol/L (136-145); TOT PROT 6.3 g/dl (6.4-8.2)
--- NOTE | 2018-08-08 18:43 | PDOC ---
Documentation entered by Jackie Jeffrey SCRIBE, acting as scribe for Fang Nieto MD. Fang Nieto MD: This documentation has been prepared by the Rachele fontaine Amanda, SCRIBE, under my direction and personally reviewed by me in its entirety. I confirm that the documentation accurately reflects all work, treatment, procedures, and medical decision making performed by me. Attending Attestation - Resident Resident Name: Des Kelly - ED Attending Attestation I have performed the following: I have examined & evaluated the patient, The case was reviewed & discussed with the resident, I agree w/resident's findings & plan, Exceptions are as noted - HPI HPI: 08/08/18 16:48 The patient is a 53 year old female with a significant past medical history of asthma, DM II, HTN, heroin abuse (3 bundles/ day for approximately 5 years with last use at 8am today), 6-pack beers daily, 2ppd current smoker, seizure disorder (not on medications), Bipolar disorder and schizophrenia who presents to the ED for 2 week complaint of abdominal pain and constipation. The patient denies chest pain, shortness of breath, headache and dizziness. The patient denies fever, chills, nausea, vomit, diarrhea. The patient denies dysuria, frequency, urgency and hematuria. - Physicial Exam PE: 08/08/18 17:09 GENERAL: Awake, alert, and fully oriented, (+) appears mildly uncomfortable, in no acute distress. HEAD: No signs of trauma EYES: PERRLA, EOMI, sclera anicteric, conjunctiva clear ENT: Auricles normal inspection, hearing grossly normal, nares patent, oropharynx clear without exudates. Moist mucosa NECK: Normal ROM, supple, no lymphadenopathy, JVD, or masses LUNGS: Breath sounds equal, clear to auscultation bilaterally. No wheezes, and no crackles HEART: Regular rate and rhythm, normal S1 and S2, no murmurs, rubs or gallops ABDOMEN: (+) midlly diffusely tendernes to palpation. Soft,normoactive bowel sounds. No guarding, no rebound. No masses EXTREMITIES: Normal range of motion, no edema. No clubbing or cyanosis. No cords, erythema, or tenderness NEUROLOGICAL: Cranial nerves II through XII grossly intact. Normal speech, normal gait SKIN: Warm, Dry, normal turgor, no rashes or lesions noted. - Medical Decision Making 08/08/18 18:39 pt presents to the ED complaining of diffuse abdominal pain and constipation. Active polysubstance abuse. CT abdomen pelvis performed to evaluate for obstruction, diverticulitis, colitis, abscess or other intraabdominal pathology. Will discharge home if CT is negative.
--- NOTE | 2018-08-08 19:22 | PDOC ---
*Physical Exam - Vital Signs Last Vital Signs Temp Pulse Resp BP Pulse Ox 98 F 92 H 20 128/59 L 100 08/08/18 15:54 08/08/18 15:54 08/08/18 15:54 08/08/18 15:54 08/08/18 15:54 ED Treatment Course - LABORATORY CBC & Chemistry Diagram: 08/08/18 16:48 08/08/18 16:48 - ADDITIONAL ORDERS Additional order review: Laboratory Results 08/08/18 08/08/18 08/08/18 16:48 16:48 16:48 PT with INR 12.70 INR 1.08 PTT (Actin FS) 31.5 Sodium Potassium Chloride Carbon Dioxide Anion Gap BUN Creatinine Creat Clearance w eGFR Random Glucose Lactic Acid 1.1 Calcium Total Bilirubin AST ALT Alkaline Phosphatase Total Protein Albumin Blood Type B NEGATIVE Antibody Screen Negative 08/08/18 16:48 PT with INR INR PTT (Actin FS) Sodium 139 Potassium 3.9 Chloride 104 Carbon Dioxide 28 Anion Gap 7 L BUN 12 Creatinine 0.6 Creat Clearance w eGFR 105.40 Random Glucose 161 H Lactic Acid Calcium 8.6 Total Bilirubin 0.2 AST 11 L ALT 12 L Alkaline Phosphatase 99 Total Protein 6.3 L Albumin 2.9 L Blood Type Antibody Screen 08/08/18 16:48 RBC 4.90 MCV 85.9 MCHC 33.4 RDW 13.5 MPV 7.6 Neutrophils % 45.0 Lymphocytes % 42.1 H Monocytes % 7.5 Eosinophils % 4.4 Basophils % 1.0 - Medications Given in the ED: ED Medications Discontinued Medications Generic Name Dose Route Start Last Admin Trade Name Freq PRN Reason Stop Dose Admin Acetaminophen 1,000 mg 08/08/18 16:39 08/08/18 18:55 Ofirmev Injection - IVPB 08/08/18 16:40 1,000 mg ONCE ONE Administration Sodium Chloride 1,000 mls @ 1,000 mls/hr 08/08/18 16:35 08/08/18 17:35 Normal Saline - IV 08/08/18 17:34 1,000 mls/hr ASDIR STA Administration Medical Decision Making - Medical Decision Making 08/08/18 19:22 Pt signed out to me by Dr. Chin. 53F who presents with abdominal pain pending CTAP. If negative, back to [facility]. 05/07/19 20:28 Impression: Status post cholecystectomy. Borderline dilatation of the common bile duct with mild dilatation of the central intrahepatic bile ducts. Correlate clinically for further evaluation. Partially distended stomach limiting evaluation of its wall without gross thickening. Moderate amount of fecal residue in the entire colon suggestive of constipation without gross wall thickening. There is apparent thickening of the urinary bladder wall likely due to partial distention. Correlate clinically to rule out cystitis. Lipase negative. Will d/c with PCP f/u. *DC/Admit/Observation/Transfer Diagnosis at time of Disposition: Abdominal pain Qualifiers: Abdominal location: unspecified location Qualified Code(s): R10.9 - Unspecified abdominal pain Constipation Qualifiers: Constipation type: unspecified constipation type Qualified Code(s): K59.00 - Constipation, unspecified - Discharge Dispostion Disposition: HOME Condition at time of disposition: Stable Decision to Admit order: No - Referrals - Patient Instructions Printed Discharge Instructions: Constipation Additional Instructions: Your ER visit is not complete until your follow up with your primary care physician. Please follow up with your primary care physician in 1-2 days. Please return to the ER if you have any signs or symptoms of chest pain, shortness of breath, uncontrollable fever, chills, nausea, vomiting, numbness, tingling, or weakness in any part of your body, changes in vision, or slurred speech. Please take your medications as prescribed. USE LAXATIVES LIKE MIRALAX DAILY. Please return to the ER if symptoms persist, worsen, or new symptoms arise. - Post Discharge Activity
[2018-08-08 20:15] LABS: LIPASE 95 U/L (73-393)
== END 2018-08-08 22:39 | disposition home or self-care (01) ==
LOC: JER 15:45
PROC: 3E0337Z Introduction of Electrolytic and Water Balance Substance into Peripheral Vein, Percutaneous Approach (ICD-10-PCS; principal; 2018-08-08)
PROC: 3E033NZ Introduction of Analgesics, Hypnotics, Sedatives into Peripheral Vein, Percutaneous Approach (ICD-10-PCS; 2018-08-08)
DX: R10.9 Unspecified abdominal pain (principal); K59.00 Constipation, unspecified; I10 Essential (primary) hypertension; E11.9 Type 2 diabetes mellitus without complications; Z79.84 Long term (current) use of oral hypoglycemic drugs; F31.9 Bipolar disorder, unspecified; F20.9 Schizophrenia, unspecified; F10.10 Alcohol abuse, uncomplicated; F11.10 Opioid abuse, uncomplicated; F17.210 Nicotine dependence, cigarettes, uncomplicated; Z86.69 Personal history of other diseases of the nervous system and sense organs
CPT/HCPCS: 36415; 74177-TC; 80053; 83605; 83690; 85025; 85610; 85730; 86850; 86900; 86901; 99282-25; J0131; J7030

== ENCOUNTER 2019-02-19 10:30 | Inpatient (IN) | payer OTHER ==
[2019-02-19 11:48] VITALS: BMI 21.7
--- NOTE | 2019-02-19 11:55 | HP ---
COWS - Scale Resting Pulse: 1= [place] 81-100 Sweatin=Flushed/Facial Moisture Restless Observation: 1= Difficult to Sit Still Pupil Size: 1= Pupils >than Normal Bone or Joint Aches: 4=Acute Joint/Muscle Pain Runny Nose/ Eye Tearin= Runny Nose/Eyes GI Upset > 30mins: 2= Nausea/Diarrhea Tremor Observation: 1= Tremor [place], Not Seen Yawning Observation: 1= 1-2x During Session Anxiety or Irritability: 2=Irritable/Anxious Goose Flesh Skin: 0=Smooth Skin COWS Score: 17 CIWA Score Nausea/Vomitin Muscle Tremors: 3 Anxiety: 3 Agitation: 3 Paroxysmal Sweats: 3 Orientation: 2-Disoriented Date<2 days Tacttile Disturbances: 0-None Auditory Disturbances: 0-None Visual Disturbances: 0-None Headache: 6-Very Severe CIWA-Ar Total Score: 22 - Admission Criteria OASAS Guidelines: Admission for Medically Managed Detox: Requires at least one of the followin. CIWA greater than 12 2. Seizures within the past 24 hours 3. Delirium tremens within the past 24 hours 4. Hallucinations within the past 24 hours 5. Acute intervention needed for co occurring medical disorder 6. Acute intervention needed for co occurring psychiatric disorder 7. Severe withdrawal that cannot be handled at a lower level of care (continued vomiting, continued diarrhea, abnormal vital signs) requiring intravenous medication and/or fluids 8. Admitting History and Physical - Admission Chief Complaint: " I want to bedetox from alcohol and heroin." History of Present Illness: 53 year old female with history of opioid dependence with withdrawals and alcohol dependence and cocaine use disorder. She is using 2/5 bundles of heroin daily intranasally, has overdosed in the past , last used this morning. She is using cases of beer daily and 1/2 pint of heavy liquor, last used yesterday She is using $200 daily, last used today. She smokes 1 PPD for many years, smoked this morning. PMH: DM, Seizure, Asthma, HTN Psurg: Tubal ligation Psych: Schizophrenia, Bipolar on no meds. Last took meds 1 year ago. She is not homeless but just got an eviction notice. She has no support systems in place. History Source: Patient Limitations to Obtaining History: No Limitations - Past Medical History Cardiovascular: Yes: HTN Pulmonary: Yes: Asthma ...LMP: 06/03/13 Endocrine: Yes: Other (DM) - Past Surgical History Additional Past Surgical History: tubal ligation - Advance Directives Advance Directives: No: Living Will, Health Care Proxy, DNR - Smoking History Smoking history: Current some day smoker Have you smoked in the past 12 months: Yes Aproximately how many cigarettes per day: 1 - Alcohol/Substance Use Hx Alcohol Use: No Admission ROS BHS - HPI Allergies/Adverse Reactions: Allergies Allergy/AdvReac Type Severity Reaction Status Date / Time Fish Containing Products Allergy Severe Hives Verified 02/19/19 11:41 No Known Drug Allergies Allergy Severe Verified 02/19/19 11:41 Exam Limitations: No Limitations - Ebola screening Have you traveled outside of the country in the last 21 days: No Have you had contact with anyone from an Ebola affected area: No Have you been sick,other than usual withdrawal symptoms: No Do you have a fever: No - Review of Systems Constitutional: Chills, Diaphoresis, Loss of Appetite EENT: reports: No Symptoms Reported Respiratory: reports: No Symptoms reported Cardiac: reports: No Symptoms Reported GI: reports: Nausea, Abdominal cramping : reports: No Symptoms Reported Musculoskeletal: reports: No Symptoms Reported Integumentary: reports: No Symptoms Reported Neuro: reports: Headache Endocrine: reports: No Symptoms Reported Hematology: reports: No Symptoms Reported Psychiatric: reports: Agitated, Anxious Other Systems: Reviewed and Negative Patient History - Patient Medical History Hx Anemia: No Hx Asthma: Yes (ON MDI) Hx Chronic Obstructive Pulmonary Disease (COPD): No Hx Cancer: No Hx Cardiac Disorders: No Hx Congestive Heart Failure: No Hx Hypertension: No Hx Hypercholesterolemia: No Hx Pacemaker: No HX Cerebrovascular Accident: No Hx Seizures: No Hx Dementia: No Hx Diabetes: No Hx Gastrointestinal Disorders: No Hx Liver Disease: No Hx Genitourinary Disorders: No Hx Sexually Transmitted Disorders: No Hx Renal Disease (ESRD): No Hx Thyroid Disease: No Hx Human Immunodeficiency Virus (HIV): No (2015 last negative) Hx Hepatitis C: No Hx Depression: Yes Hx Suicide Attempt: No Hx Bipolar Disorder: No Hx Schizophrenia: Yes - Patient Surgical History Past Surgical History: Yes Hx Neurologic Surgery: No Hx Cataract Extraction: No Hx Cardiac Surgery: No Hx Lung Surgery: No Hx Breast Surgery: No Hx Breast Biopsy: No Hx Abdominal Surgery: No Hx Appendectomy: No Hx Cholecystectomy: Yes Hx Genitourinary Surgery: No Hx Section: No Hx Orthopedic Surgery: No Other Surgical History: Tubal ligation 1991 Anesthesia Reaction: No - PPD History Previous Implant?: Yes Documented Results: Negative w/proof Implanted On Prior [facility] Admission?: Yes Date: 11/10/17 Results: 0mm PPD to be Administered?: Yes - Reproductive History Last Menstrual Period: 06/03/13 - Smoking Cessation Smoking history: Current some day smoker Have you smoked in the past 12 months: Yes Aproximately how many cigarettes per day: 10 Cigars Per Day: 0 Hx Chewing Tobacco Use: No Initiated information on smoking cessation: Yes 'Breaking Loose' booklet given: 02/19/19 - Substances abused Heroin Substance route: Inhalation Frequency: Daily Amount used: $500 Age of first use: 42 Date of last use: 02/19/19 Crack Substance route: Smoking Frequency: Daily Amount used: $300 Age of first use: 21 Date of last use: 02/19/19 Alcohol Substance route: Oral Frequency: Daily Amount used: 2 case of beer Age of first use: 13 Date of last use: 02/19/19 Admission Physical Exam S - Vital Signs Vital Signs: Vital Signs - 24 hr 02/19/19 11:44 Temperature 98.3 F Pulse Rate 92 H Respiratory 20 Rate Blood Pressure 122/85 - Physical General Appearance: Yes: Moderate Distress, Irritable, Sweating, Anxious HEENTM: Yes: EOMI, Hearing grossly Normal, Normal ENT Inspection, Normocephalic , Normal Voice, ISSAC, Pharynx Normal, Tm's normal Respiratory: Yes: Chest Non-Tender, Lungs Clear, Normal Breath Sounds, No Respiratory Distress, No Accessory Muscle Use Neck: Yes: No masses,lesions,Nodules, Supple, Trachea in good position Breast: Yes: Breast Exam Deferred Cardiology: Yes: Regular Rhythm, S1, S2, Tachycardia Abdominal: Yes: Non Tender, Increased Bowel Sounds Genitourinary: Yes: Within Normal Limits Back: Yes: Normal Inspection Musculoskeletal: Yes: full range of Motion, Gait Steady, Pelvis Stable Extremities: Yes: Normal Capillary Refill, Normal Inspection, Normal Range of Motion, Non-Tender Neurological: Yes: hospital intern II-XII NML intact, Fully Oriented, Alert, Motor Strength 5/5, Normal Mood/Affect, Normal Response Integumentary: Yes: Normal Color, Warm Lymphatic: Yes: Within Normal Limits - Diagnostic (1) Insomnia Current Visit: Yes Status: Acute (2) Alcohol dependence with uncomplicated withdrawal Current Visit: Yes Status: Chronic (3) Opioid dependence with withdrawal Current Visit: Yes Status: Chronic (4) Post traumatic stress disorder (PTSD) Current Visit: Yes Status: Chronic (5) Schizophrenia Current Visit: Yes Status: Suspected Screened but not Admitted - Documentation of Visit Screened but not Admitted: No Breathalyzer - Breathalyzer Breathalyzer: 0 Urine Drug Screen - Test Device Lot number: [id number] Expiration date: 10/31/20 - Control Is test valid?: Yes - Results Drug screen NEGATIVE: No Urine drug screen results: LOLLY-Cocaine, FEN-Fentanyl, MOP-Opiates Inpatient Rehab Admission - Rehab Decision to Admit Inpatient rehab admission?: No
[2019-02-19] MEDS ORDERED: IBUPROFEN 400 MG TABLET (FP) PO PRN (12:00)
[2019-02-19] MEDS ORDERED: MAGNESIUM CITRATE 300 ML BOTTLE PO PRN (12:00)
[2019-02-19] MEDS ORDERED: BISMUTH SUBSALICYLATE 262 MG/15 ML BTL PO PRN (12:00)
[2019-02-19] MEDS ORDERED: ACETAMINOPHEN 325 MG TABLET (FP) PO PRN ×2 (12:00)
[2019-02-19] MEDS ORDERED: MENTHOL/PHENOL 1 EACH UD MM PRN (12:00)
[2019-02-19] MEDS ORDERED: MAG HYDROX/AL HYDROX/SIMETH 30 ML UNIT-DOSE CUP PO PRN (12:00)
[2019-02-19] MEDS ORDERED: cloNIDine HCL 0.1 MG TABLET PO PRN (12:00)
[2019-02-19] MEDS ORDERED: MAGNESIUM HYDROX 2400MG/30ML ORAL SUSPENSION 30 ML CUP PO PRN (12:00)
[2019-02-19] MEDS ORDERED: ALBUTEROL SO4 8 GM HFA INHALER IH PRN (12:06)
[2019-02-19] MEDS ORDERED: METHADONE HCL 10 MG TABLET (FOR DETOX USE ONLY) PO ONE (12:30)
[2019-02-19] MEDS: METHOCARBAMOL 500 MG TABLET PO PRN (13:08)
[2019-02-19] MEDS: LORazepam 1 MG TABLET PO PRN (13:08)
[2019-02-19] MEDS: CLOTRIMAZOLE 10 MG TROCHE (FP) PO SCH ×3 (15:47→22:20)
[2019-02-19 15:59] LABS: HEMATOCRIT 37.5 % (32.4-45.2); HEMOGLOBIN 12.4 GM/dL (10.7-15.3); MCH 28.8 pg (25.7-33.7); MCHC 33.1 g/dl (32.0-36.0); MEAN PLT VOLUME 7.8 fl (7.5-11.1); PLATELET COUNT 361 K/MM3 (134-434); RBC 4.31 M/mm3 (3.60-5.2); RDW 14.9 % (11.6-15.6); WHITE BLOOD COUNT 11.9 K/mm3 (4.0-10.0)
[2019-02-19 16:19] LABS: ALK PHOS 84 U/L (45-117); ANION GAP 5 MMOL/L (8-16); BILIRUBIN,TOTAL < 0.1 mg/dL (0.2-1); BLOOD UREA NITROGEN 13.4 mg/dL (7-18); CALCIUM 9.3 mg/dL (8.5-10.1); CHLORIDE 104 mmol/L (98-107); CO2 31 mmol/L (21-32); CREATININE 0.9 mg/dL (0.55-1.3); GLUCOSE,RANDOM 156 mg/dL (74-106); POTASSIUM 4.1 mmol/L (3.5-5.1); SGOT/AST 10 U/L (15-37); SGPT/ALT 11 U/L (13-61); SODIUM 140 mmol/L (136-145); TOT PROT 6.4 g/dl (6.4-8.2)
[2019-02-19] MEDS ORDERED: FLUCONAZOLE 50 MG TABLET PO ONE (17:00)
[2019-02-19] MEDS: LORazepam 2 MG TABLET PO SCH ×2 (17:36→22:20)
[2019-02-19] MEDS: THIAMINE HCL 100 MG TABLET (FP) PO SCH (22:20)
[2019-02-19] MEDS: BUDESONIDE/FORMETEROL FUMARATE 80/4.5 mcg INHALER IH SCH (22:20)
[2019-02-20] MEDS: LORazepam 2 MG TABLET PO SCH ×4 (06:06→22:14)
[2019-02-20] MEDS: CLOTRIMAZOLE 10 MG TROCHE (FP) PO SCH ×5 (06:07→21:22)
[2019-02-20] MEDS: metFORMIN HCL 500 MG TABLET (FP) PO SCH (06:08)
[2019-02-20] MEDS ORDERED: METHADONE HCL 10 MG TABLET (FOR DETOX USE ONLY) ONE (09:44)
[2019-02-20] MEDS ORDERED: METHADONE HCL 5 MG TABLET (FOR DETOX USE ONLY) ONE (09:45)
[2019-02-20] MEDS ORDERED: PATIENT'S OWN MEDICATION (NON-FORMULARY) (Salmeterol/Fluticasone [Advair 250mcg/50mcg -] 1 PO SCH (10:00)
[2019-02-20] MEDS ORDERED: METHADONE (DETOX) 20 MG, METHADONE (DETOX) 5 MG PO ONE (10:00)
[2019-02-20] MEDS: LISINOPRIL 20 MG TABLET (FP) PO SCH ×2 (10:57→12:00)
[2019-02-20] MEDS: PRENATAL VITAMINS W/ FOLIC ACID TABLET (FP) PO SCH (10:58)
[2019-02-20] MEDS: BUDESONIDE/FORMETEROL FUMARATE 80/4.5 mcg INHALER IH SCH ×2 (11:00→21:22)
[2019-02-20] MEDS: NICOTINE 14 MG/24 HOURS TOPICAL PATCH TD SCH (11:02)
[2019-02-20] MEDS: NEOMYCIN/POLYMYXIN/HC TOPICAL CREAM 7.5 GM TUBE TP SCH (11:03)
[2019-02-20] MEDS: hydrOXYzine PAMOATE 25 MG CAPSULE (FP) PO PRN ×2 (12:06→19:23)
--- NOTE | 2019-02-20 15:31 | PN ---
[facility] CIWA - CIWA Score Nausea/Vomitin-Mild Nausea/No Vomiting Muscle Tremors: 4-Moderate,w/Arms Extend Anxiety: 3 Agitation: 2 Paroxysmal Sweats: 2 Orientation: 1-Uncertain about Date Tacttile Disturbances: 1-Very Mild Itch/Numbness Auditory Disturbances: 1-Very Mild Visual Disturbances: 0-None Headache: 2-Mild CIWA-Ar Total Score: 17 BHS COWS - Scale Resting Pulse: 2= [place] 101-120 Sweatin= Chills/Flushing Restless Observation: 0= Sits Still Pupil Size: 1= Pupils >than Normal Bone or Joint Aches: 2= Severe Diffuse Aches Runny Nose/ Eye Tearin= Nasal Congestion GI Upset > 30mins: 2= Nausea/Diarrhea (no diarrhea) Tremor Observation of Outstretched Hands: 2= Slight Tremor Visible Yawning Observation: 1= 1-2x During Session Anxiety or Irritability: 2=Irritable/Anxious Goose Flesh Skin: 3=Piloerection COWS Score: 17 S Progress Note (SOAP) Subjective: 53 years old female admitted on 02/19/19 for alcohol and opiate withdrawal sx management treated with ativan and methadone detox regimen patient tolerated well resting on bed feeling tired ate breakfast and lunch limited conversation with staff Objective: 02/20/19 15:28 Vital Signs Temperature 97.7 F 02/20/19 13:17 Pulse Rate 114 H 02/20/19 13:17 Respiratory Rate 18 02/20/19 13:17 Blood Pressure 168/91 02/20/19 13:17 O2 Sat by Pulse Oximetry (%) Laboratory Last Values WBC 11.9 K/mm3 (4.0-10.0) H 02/19/19 12:00 RBC 4.31 M/mm3 (3.60-5.2) 02/19/19 12:00 Hgb 12.4 GM/dL (10.7-15.3) 02/19/19 12:00 Hct 37.5 % (32.4-45.2) 02/19/19 12:00 MCV 87.0 fl (80-96) 02/19/19 12:00 MCH 28.8 pg (25.7-33.7) 02/19/19 12:00 MCHC 33.1 g/dl (32.0-36.0) 02/19/19 12:00 RDW 14.9 % (11.6-15.6) 02/19/19 12:00 Plt Count 361 K/MM3 (134-434) D 02/19/19 12:00 MPV 7.8 fl (7.5-11.1) 02/19/19 12:00 Sodium 140 mmol/L (136-145) 02/19/19 12:00 Potassium 4.1 mmol/L (3.5-5.1) 02/19/19 12:00 Chloride 104 mmol/L (98-107) 02/19/19 12:00 Carbon Dioxide 31 mmol/L (21-32) 02/19/19 12:00 Anion Gap 5 MMOL/L (8-16) L 02/19/19 12:00 BUN 13.4 mg/dL (7-18) 02/19/19 12:00 Creatinine 0.9 mg/dL (0.55-1.3) 02/19/19 12:00 Est GFR (CKD-EPI)AfAm 85.80 02/19/19 12:00 Est GFR (CKD-EPI)NonAf 74.03 02/19/19 12:00 POC Glucometer 93 UNITS (80-120) 02/20/19 06:15 Random Glucose 156 mg/dL (74-106) H 02/19/19 12:00 Calcium 9.3 mg/dL (8.5-10.1) 02/19/19 12:00 Total Bilirubin < 0.1 mg/dL (0.2-1) L 02/19/19 12:00 AST 10 U/L (15-37) L 02/19/19 12:00 ALT 11 U/L (13-61) L 02/19/19 12:00 Alkaline Phosphatase 84 U/L (45-117) 02/19/19 12:00 Total Protein 6.4 g/dl (6.4-8.2) 02/19/19 12:00 Albumin 3.0 g/dl (3.4-5.0) L 02/19/19 12:00 RPR Titer Nonreactive (NONREACTIVE) 02/19/19 12:00 HIV 1&2 Antibody Screen Negative 02/20/19 07:00 HIV P24 Antigen Negative 02/20/19 07:00 lab noted 02/20/19 15:29 Assessment: 02/20/19 15:30 alcohol and opiate withdrawal sx Plan: continue ativan and methadone detox regimen
[2019-02-20] MEDS ORDERED: LOPERAMIDE HCL 2 MG CAPSULE PO ONE (15:32)
--- NOTE | 2019-02-20 18:14 | CONSULT ---
[facility] Psychiatric Consult - Data Date of interview: 02/20/19 Admission source: [facility] Identifying data: Patient is approached at bedside (MD escorted with client representative) for psychiatric interview. " I am tired. I cannot talk now. Can this wait for tomorrow ? Patient declines evaluation. Nursing staff is aware.
[2019-02-20] MEDS: LORazepam 1 MG TABLET PO PRN ×2 (19:23→23:50)
[2019-02-20] MEDS: METHOCARBAMOL 500 MG TABLET PO PRN (20:16)
[2019-02-20] MEDS: THIAMINE HCL 100 MG TABLET (FP) PO SCH (21:22)
[2019-02-20] MEDS: MELATONIN 5 MG TABLETS PO PRN (21:22)
[2019-02-21] MEDS: CLOTRIMAZOLE 10 MG TROCHE (FP) PO SCH ×5 (06:47→22:33)
[2019-02-21] MEDS: LORazepam 1 MG TABLET PO SCH ×4 (06:47→22:32)
[2019-02-21] MEDS: metFORMIN HCL 500 MG TABLET (FP) PO SCH (06:48)
[2019-02-21] MEDS ORDERED: METHADONE HCL 10 MG TABLET (FOR DETOX USE ONLY) PO ONE (10:00)
[2019-02-21] MEDS: PRENATAL VITAMINS W/ FOLIC ACID TABLET (FP) PO SCH (10:37)
[2019-02-21] MEDS: NICOTINE 14 MG/24 HOURS TOPICAL PATCH TD SCH (10:38)
[2019-02-21] MEDS: LISINOPRIL 20 MG TABLET (FP) PO SCH (10:38)
[2019-02-21] MEDS: BUDESONIDE/FORMETEROL FUMARATE 80/4.5 mcg INHALER IH SCH ×2 (10:38→22:33)
[2019-02-21] MEDS: hydrOXYzine PAMOATE 25 MG CAPSULE (FP) PO PRN (10:39)
[2019-02-21] MEDS: NEOMYCIN/POLYMYXIN/HC TOPICAL CREAM 7.5 GM TUBE TP SCH (10:43)
--- NOTE | 2019-02-21 11:08 | PN ---
S CIWA - CIWA Score Nausea/Vomitin-Mild Nausea/No Vomiting Muscle Tremors: 4-Moderate,w/Arms Extend Anxiety: 3 Agitation: 2 Paroxysmal Sweats: 2 Orientation: 0-Oriented Tacttile Disturbances: 1-Very Mild Itch/Numbness Auditory Disturbances: 0-None Visual Disturbances: 0-None Headache: 0-None Present CIWA-Ar Total Score: 13 [facility] COWS - Scale Resting Pulse: 1= DC 81-100 Sweatin= Chills/Flushing Restless Observation: 0= Sits Still Pupil Size: 1= Pupils >than Normal Bone or Joint Aches: 2= Severe Diffuse Aches Runny Nose/ Eye Tearin= Nasal Congestion GI Upset > 30mins: 2= Nausea/Diarrhea Tremor Observation of Outstretched Hands: 2= Slight Tremor Visible Yawning Observation: 1= 1-2x During Session Anxiety or Irritability: 2=Irritable/Anxious Goose Flesh Skin: 0=Smooth Skin COWS Score: 13 S Progress Note (SOAP) Subjective: 53 years old female admitted on 02/19/19 for alcohol and opiate withdrawal sx management treated with ativan and methadone detox regimen ate breakfast ambulating on hallway discuss aftercare with staff encourage medication 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 Objective: 02/21/19 11:28 Vital Signs Temperature 98.0 F 02/21/19 09:20 Pulse Rate 96 H 02/21/19 09:20 Respiratory Rate 16 02/21/19 09:20 Blood Pressure 130/87 02/21/19 09:20 O2 Sat by Pulse Oximetry (%) Laboratory Last Values WBC 11.9 K/mm3 (4.0-10.0) H 02/19/19 12:00 RBC 4.31 M/mm3 (3.60-5.2) 02/19/19 12:00 Hgb 12.4 GM/dL (10.7-15.3) 02/19/19 12:00 Hct 37.5 % (32.4-45.2) 02/19/19 12:00 MCV 87.0 fl (80-96) 02/19/19 12:00 MCH 28.8 pg (25.7-33.7) 02/19/19 12:00 MCHC 33.1 g/dl (32.0-36.0) 02/19/19 12:00 RDW 14.9 % (11.6-15.6) 02/19/19 12:00 Plt Count 361 K/MM3 (134-434) D 02/19/19 12:00 MPV 7.8 fl (7.5-11.1) 02/19/19 12:00 Sodium 140 mmol/L (136-145) 02/19/19 12:00 Potassium 4.1 mmol/L (3.5-5.1) 02/19/19 12:00 Chloride 104 mmol/L (98-107) 02/19/19 12:00 Carbon Dioxide 31 mmol/L (21-32) 02/19/19 12:00 Anion Gap 5 MMOL/L (8-16) L 02/19/19 12:00 BUN 13.4 mg/dL (7-18) 02/19/19 12:00 Creatinine 0.9 mg/dL (0.55-1.3) 02/19/19 12:00 Est GFR (CKD-EPI)AfAm 85.80 02/19/19 12:00 Est GFR (CKD-EPI)NonAf 74.03 02/19/19 12:00 POC Glucometer 93 UNITS (80-120) 02/20/19 06:15 Random Glucose 156 mg/dL (74-106) H 02/19/19 12:00 Calcium 9.3 mg/dL (8.5-10.1) 02/19/19 12:00 Total Bilirubin < 0.1 mg/dL (0.2-1) L 02/19/19 12:00 AST 10 U/L (15-37) L 02/19/19 12:00 ALT 11 U/L (13-61) L 02/19/19 12:00 Alkaline Phosphatase 84 U/L (45-117) 02/19/19 12:00 Total Protein 6.4 g/dl (6.4-8.2) 02/19/19 12:00 Albumin 3.0 g/dl (3.4-5.0) L 02/19/19 12:00 RPR Titer Nonreactive (NONREACTIVE) 02/19/19 12:00 HIV 1&2 Antibody Screen Negative 02/20/19 07:00 HIV P24 Antigen Negative 02/20/19 07:00 lab noted long history of diabetes treated with metformin 500 mg po daily before breakfast 02/21/19 11:29 02/21/19 11:29 Assessment: 02/21/19 11:29 alcohol and opiate withdrawal sx Plan: continue ativan and methadone detox regimen
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
[2019-02-21] MEDS: THIAMINE HCL 100 MG TABLET (FP) PO SCH (22:32)
[2019-02-21] MEDS: METHOCARBAMOL 500 MG TABLET PO PRN (22:34)
[2019-02-22] MEDS ORDERED: LORazepam 0.5 MG TABLET PO PRN
[2019-02-22] MEDS: LORazepam 0.5 MG TABLET PO SCH ×4 (06:05→22:23)
[2019-02-22] MEDS: CLOTRIMAZOLE 10 MG TROCHE (FP) PO SCH ×5 (06:06→22:28)
[2019-02-22] MEDS: metFORMIN HCL 500 MG TABLET (FP) PO SCH (06:08)
[2019-02-22] MEDS ORDERED: METHADONE HCL 5 MG TABLET (FOR DETOX USE ONLY) ONE (09:19)
[2019-02-22] MEDS ORDERED: METHADONE HCL 10 MG TABLET (FOR DETOX USE ONLY) ONE (09:19)
[2019-02-22] MEDS ORDERED: SODIUM CHLORIDE NASAL SPRAY 44 ML BOTTLE NS PRN (09:26)
[2019-02-22] MEDS: METHOCARBAMOL 500 MG TABLET PO PRN (09:53)
[2019-02-22] MEDS ORDERED: METHADONE (DETOX) 10 MG, METHADONE (DETOX) 5 MG PO ONE (10:00)
[2019-02-22] MEDS: BUDESONIDE/FORMETEROL FUMARATE 80/4.5 mcg INHALER IH SCH ×2 (10:05→22:23)
[2019-02-22] MEDS: NICOTINE 14 MG/24 HOURS TOPICAL PATCH TD SCH (10:05)
[2019-02-22] MEDS: LISINOPRIL 20 MG TABLET (FP) PO SCH (10:05)
[2019-02-22] MEDS: PRENATAL VITAMINS W/ FOLIC ACID TABLET (FP) PO SCH (10:35)
[2019-02-22] MEDS: MUPIROCIN 2% TOPICAL OINTMENT FOR DECOLONIZATION NS SCH (10:44)
[2019-02-22] MEDS ORDERED: IBUPROFEN 400 MG TABLET (FP) PO PRN (12:27)
--- NOTE | 2019-02-22 12:31 | PN ---
[facility] CIWA - CIWA Score Nausea/Vomitin-No Nausea/No Vomiting Muscle Tremors: 3 Anxiety: 3 Agitation: 2 Paroxysmal Sweats: 2 Orientation: 0-Oriented Tacttile Disturbances: 0-None Auditory Disturbances: 0-None Visual Disturbances: 0-None Headache: 0-None Present CIWA-Ar Total Score: 10 S COWS - Scale Resting Pulse: 1= MO 81-100 Sweatin= Chills/Flushing Restless Observation: 1= Difficult to Sit Still Pupil Size: 0= Normal to Room Light Bone or Joint Aches: 2= Severe Diffuse Aches Runny Nose/ Eye Tearin= Nasal Congestion GI Upset > 30mins: 0= None Tremor Observation of Outstretched Hands: 0= None Yawning Observation: 0= None Anxiety or Irritability: 2=Irritable/Anxious Goose Flesh Skin: 0=Smooth Skin COWS Score: 8 [facility] Progress Note (SOAP) Subjective: muscle aches lower back pain nasal irritation with mucus vaginal foul smell with discharge sweats agitation Objective: 02/22/19 12:29 Vital Signs Temperature 98.2 F 02/22/19 11:26 Pulse Rate 99 H 02/22/19 11:26 Respiratory Rate 18 02/22/19 11:26 Blood Pressure 132/79 02/22/19 11:26 O2 Sat by Pulse Oximetry (%) Laboratory Tests 02/19/19 02/19/19 02/19/19 12:00 12:00 12:00 WBC 11.9 H RBC 4.31 Hgb 12.4 Hct 37.5 MCV 87.0 MCH 28.8 MCHC 33.1 RDW 14.9 Plt Count 361 D MPV 7.8 Sodium 140 Potassium 4.1 Chloride 104 Carbon Dioxide 31 Anion Gap 5 L BUN 13.4 Creatinine 0.9 Est GFR (CKD-EPI)AfAm 85.80 Est GFR (CKD-EPI)NonAf 74.03 POC Glucometer Random Glucose 156 H Calcium 9.3 Total Bilirubin < 0.1 L AST 10 L ALT 11 L Alkaline Phosphatase 84 Total Protein 6.4 Albumin 3.0 L RPR Titer Nonreactive HIV 1&2 Antibody Screen HIV P24 Antigen 02/19/19 02/20/19 02/20/19 12:16 06:15 07:00 WBC RBC Hgb Hct MCV MCH MCHC RDW Plt Count MPV Sodium Potassium Chloride Carbon Dioxide Anion Gap BUN Creatinine Est GFR (CKD-EPI)AfAm Est GFR (CKD-EPI)NonAf POC Glucometer 185 93 Random Glucose Calcium Total Bilirubin AST ALT Alkaline Phosphatase Total Protein Albumin RPR Titer HIV 1&2 Antibody Screen Negative HIV P24 Antigen Negative 02/22/19 06:06 WBC RBC Hgb Hct MCV MCH MCHC RDW Plt Count MPV Sodium Potassium Chloride Carbon Dioxide Anion Gap BUN Creatinine Est GFR (CKD-EPI)AfAm Est GFR (CKD-EPI)NonAf POC Glucometer 134 Random Glucose Calcium Total Bilirubin AST ALT Alkaline Phosphatase Total Protein Albumin RPR Titer HIV 1&2 Antibody Screen HIV P24 Antigen labs noted aaox3 ambulating no acute distress Assessment: 02/22/19 12:29 withdrawal sx Plan: continue detox increase fluids metrogel VS ordered roboxin prn motrin 800 tid prn lidocaine patch daily analgesic balm bactoban ns
[2019-02-22] MEDS: LIDOCAINE 5% TOPICAL PATCH TP SCH (13:07)
[2019-02-22] MEDS ORDERED: LIDOCAINE PATCH REMOVAL MC SCH (22:00)
[2019-02-22] MEDS ORDERED: metroNIDAZOLE 0.75% VAGINAL GEL 70 GM TUBE VG SCH (22:00)
[2019-02-22] MEDS: THIAMINE HCL 100 MG TABLET (FP) PO SCH (22:23)
[2019-02-22] MEDS: MELATONIN 5 MG TABLETS PO PRN (22:24)
[2019-02-22] MEDS: METHYL SALICYLATE/MENTHOL OINT 30 GM TUBE TP SCH (22:26)
[2019-02-23] MEDS ORDERED: LORazepam 0.5 MG TABLET PO ONE (05:00)
[2019-02-23] MEDS: CLOTRIMAZOLE 10 MG TROCHE (FP) PO SCH ×3 (05:49→13:01)
[2019-02-23] MEDS: metFORMIN HCL 500 MG TABLET (FP) PO SCH (06:23)
[2019-02-23] MEDS ORDERED: metroNIDAZOLE 250 MG TABLET PO ONE (09:35)
[2019-02-23] MEDS ORDERED: METHADONE HCL 10 MG TABLET (FOR DETOX USE ONLY) PO ONE (10:00)
[2019-02-23] MEDS: LIDOCAINE 5% TOPICAL PATCH TP SCH (10:22)
[2019-02-23] MEDS: NICOTINE 14 MG/24 HOURS TOPICAL PATCH TD SCH (10:23)
[2019-02-23] MEDS: LISINOPRIL 20 MG TABLET (FP) PO SCH (10:23)
[2019-02-23] MEDS: PRENATAL VITAMINS W/ FOLIC ACID TABLET (FP) PO SCH (10:23)
[2019-02-23] MEDS: BUDESONIDE/FORMETEROL FUMARATE 80/4.5 mcg INHALER IH SCH (10:23)
[2019-02-23] MEDS: METHYL SALICYLATE/MENTHOL OINT 30 GM TUBE TP SCH (10:24)
[2019-02-23] MEDS: MUPIROCIN 2% TOPICAL OINTMENT FOR DECOLONIZATION NS SCH (10:25)
[2019-02-23] MEDS: METHOCARBAMOL 500 MG TABLET PO PRN (10:31)
--- NOTE | 2019-02-23 12:19 | PN ---
S CIWA - CIWA Score Nausea/Vomitin-No Nausea/No Vomiting Muscle Tremors: 2 Anxiety: 1-Mildly Anxious Agitation: 1-Slight > Activity Paroxysmal Sweats: 1-Minimal Palms Moist Orientation: 0-Oriented Tacttile Disturbances: 0-None Auditory Disturbances: 0-None Visual Disturbances: 0-None Headache: 0-None Present CIWA-Ar Total Score: 5 S COWS - Scale Resting Pulse: 1= [place] 81-100 Sweatin= No chills or Flushing Restless Observation: 1= Difficult to Sit Still Pupil Size: 0= Normal to Room Light Bone or Joint Aches: 1= Mild Discomfort Runny Nose/ Eye Tearin= None GI Upset > 30mins: 0= None Tremor Observation of Outstretched Hands: 0= None Yawning Observation: 0= None Anxiety or Irritability: 1=Feels Anxious/Irritable Goose Flesh Skin: 0=Smooth Skin COWS Score: 4 S Progress Note (SOAP) Subjective: feeling better I dont want the vaginal antibiotic cream i want oral sweats chronic low back pain Objective: 02/23/19 12:18 Vital Signs Temperature 98.2 F 02/23/19 09:56 Pulse Rate 97 H 02/23/19 09:56 Respiratory Rate 18 02/23/19 09:56 Blood Pressure 121/73 02/23/19 09:56 O2 Sat by Pulse Oximetry (%) Laboratory Tests 02/19/19 02/19/19 02/19/19 12:00 12:00 12:00 WBC 11.9 H RBC 4.31 Hgb 12.4 Hct 37.5 MCV 87.0 MCH 28.8 MCHC 33.1 RDW 14.9 Plt Count 361 D MPV 7.8 Sodium 140 Potassium 4.1 Chloride 104 Carbon Dioxide 31 Anion Gap 5 L BUN 13.4 Creatinine 0.9 Est GFR (CKD-EPI)AfAm 85.80 Est GFR (CKD-EPI)NonAf 74.03 POC Glucometer Random Glucose 156 H Calcium 9.3 Total Bilirubin < 0.1 L AST 10 L ALT 11 L Alkaline Phosphatase 84 Total Protein 6.4 Albumin 3.0 L RPR Titer Nonreactive HIV 1&2 Antibody Screen HIV P24 Antigen 02/19/19 02/20/19 02/20/19 12:16 06:15 07:00 WBC RBC Hgb Hct MCV MCH MCHC RDW Plt Count MPV Sodium Potassium Chloride Carbon Dioxide Anion Gap BUN Creatinine Est GFR (CKD-EPI)AfAm Est GFR (CKD-EPI)NonAf POC Glucometer 185 93 Random Glucose Calcium Total Bilirubin AST ALT Alkaline Phosphatase Total Protein Albumin RPR Titer HIV 1&2 Antibody Screen Negative HIV P24 Antigen Negative 02/22/19 02/22/19 02/23/19 06:06 16:51 05:47 WBC RBC Hgb Hct MCV MCH MCHC RDW Plt Count MPV Sodium Potassium Chloride Carbon Dioxide Anion Gap BUN Creatinine Est GFR (CKD-EPI)AfAm Est GFR (CKD-EPI)NonAf POC Glucometer 134 136 105 Random Glucose Calcium Total Bilirubin AST ALT Alkaline Phosphatase Total Protein Albumin RPR Titer HIV 1&2 Antibody Screen HIV P24 Antigen aaox3 ambulating no acute distress Assessment: 02/23/19 12:18 mild withdrawals Plan: continue detox d/c in am
[2019-02-23] MEDS: hydrOXYzine PAMOATE 25 MG CAPSULE (FP) PO PRN (12:58)
[2019-02-23 13:47] VITALS: BP 136/75; PULSE 109; TEMP 97
[2019-02-23] MEDS ORDERED: metroNIDAZOLE 250 MG TABLET PO SCH (14:00)
--- NOTE | 2019-02-23 14:31 | PN ---
[facility] Progress Note Note: pt refused to stay and complete her detox; she states she has to get home. pt was encouraged to stay and complete and prevent relapse, seizure, DT, OD, loss, however pt chose to sign out AMA.
--- NOTE | 2019-02-23 14:32 | DS ---
[facility] Detox Discharge Summary Admission Date: 02/19/19 - History Present History: Alcohol Dependence, Cocaine Dependence, Opioid Dependence - Physical Exam Results Vital Signs: Vital Signs Temperature 97.0 F L 02/23/19 13:46 Pulse Rate 109 H 02/23/19 13:46 Respiratory Rate 18 02/23/19 13:46 Blood Pressure 136/75 02/23/19 13:46 O2 Sat by Pulse Oximetry (%) Pertinent Admission Physical Exam Findings: pt arrived in withdrawals Vital Signs Temperature 97.0 F L 02/23/19 13:46 Pulse Rate 109 H 02/23/19 13:46 Respiratory Rate 18 02/23/19 13:46 Blood Pressure 136/75 02/23/19 13:46 O2 Sat by Pulse Oximetry (%) Laboratory Tests 02/19/19 02/19/19 02/19/19 12:00 12:00 12:00 WBC 11.9 H RBC 4.31 Hgb 12.4 Hct 37.5 MCV 87.0 MCH 28.8 MCHC 33.1 RDW 14.9 Plt Count 361 D MPV 7.8 Sodium 140 Potassium 4.1 Chloride 104 Carbon Dioxide 31 Anion Gap 5 L BUN 13.4 Creatinine 0.9 Est GFR (CKD-EPI)AfAm 85.80 Est GFR (CKD-EPI)NonAf 74.03 POC Glucometer Random Glucose 156 H Calcium 9.3 Total Bilirubin < 0.1 L AST 10 L ALT 11 L Alkaline Phosphatase 84 Total Protein 6.4 Albumin 3.0 L RPR Titer Nonreactive HIV 1&2 Antibody Screen HIV P24 Antigen 02/19/19 02/20/19 02/20/19 12:16 06:15 07:00 WBC RBC Hgb Hct MCV MCH MCHC RDW Plt Count MPV Sodium Potassium Chloride Carbon Dioxide Anion Gap BUN Creatinine Est GFR (CKD-EPI)AfAm Est GFR (CKD-EPI)NonAf POC Glucometer 185 93 Random Glucose Calcium Total Bilirubin AST ALT Alkaline Phosphatase Total Protein Albumin RPR Titer HIV 1&2 Antibody Screen Negative HIV P24 Antigen Negative 02/22/19 02/22/19 02/23/19 06:06 16:51 05:47 WBC RBC Hgb Hct MCV MCH MCHC RDW Plt Count MPV Sodium Potassium Chloride Carbon Dioxide Anion Gap BUN Creatinine Est GFR (CKD-EPI)AfAm Est GFR (CKD-EPI)NonAf POC Glucometer 134 136 105 Random Glucose Calcium Total Bilirubin AST ALT Alkaline Phosphatase Total Protein Albumin RPR Titer HIV 1&2 Antibody Screen HIV P24 Antigen aaox3 ambulating no acute distress - Treatment Hospital Course: Rehab Referral Accepted - Medication Discharge Medications: Ambulatory Orders Docusate Sodium [Colace -] 100 mg PO TID 07/13/16 Gabapentin [Neurontin -] 400 mg PO Q8H #90 capsule 08/02/16 Salmeterol/Fluticasone [Advair 250Mcg/50Mcg -] 1 inh PO DAILY 11/08/17 Aspirin [ASA -] 81 mg PO DAILY #30 mg 08/11/18 Bisacodyl [Bisacodyl -] 5 mg PO DAILY PRN #30 tablet. 08/11/18 Fluticasone Prop 0.05% Nasal [Flonase -] 2 spray NS DAILY #1 spray 08/11/18 Naproxen [Naprosyn -] 500 mg PO BID #60 tablet 08/11/18 Naloxone HCl [Narcan] 4 mg NS ASDIR PRN #1 spray 02/21/19 Albuterol Sulfate Inhaler - [Ventolin HFA Inhaler -] 2 inh PO Q4H PRN #1 inhaler 02/23/19 Budesonide/Formeterol Fumarate [SYMBICORT 80/4.5mcg -] 2 puff IH BID #1 inhaler 02/23/19 Lisinopril [Prinivil] 20 mg PO DAILY #30 tablet 02/23/19 metFORMIN HCL [Glucophage -] 500 mg PO DAILY #30 mg 02/23/19 metroNIDAZOLE [Flagyl -] 500 mg PO TID #21 tablet 02/23/19 - Diagnosis (1) Insomnia Current Visit: Yes Status: Acute (2) Alcohol dependence with uncomplicated withdrawal Current Visit: Yes Status: Chronic (3) Opioid dependence with withdrawal Current Visit: Yes Status: Chronic (4) Post traumatic stress disorder (PTSD) Current Visit: Yes Status: Chronic (5) Schizophrenia Current Visit: Yes Status: Suspected (6) Abdominal pain Current Visit: No Status: Acute Qualifiers: Abdominal location: generalized Qualified Code(s): R10.84 - Generalized abdominal pain (7) Substance induced mood disorder Current Visit: No Status: Acute (8) Substance induced mood disorder Current Visit: No Status: Acute (9) Substance-induced anxiety disorder Current Visit: No Status: Acute (10) Substance-induced sleep disorder Current Visit: No Status: Acute (11) Anxiety and depression Current Visit: No Status: Chronic (12) Bipolar disorder Current Visit: No Status: Chronic (13) Bipolar disorder Current Visit: No Status: Chronic (14) Bronchial asthma Current Visit: No Status: Chronic (15) Cocaine dependence Current Visit: No Status: Chronic Qualifiers: Complication of substance-induced condition: with unspecified complication (16) DM2 (diabetes mellitus, type 2) Current Visit: No Status: Chronic Qualifiers: Diabetes mellitus prison insulin use: 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 Chronic kidney disease stage: unspecified stage (17) Essential hypertension Current Visit: No Status: Chronic (18) Hypertension Current Visit: No Status: Chronic Qualifiers: Hypertension type: essential hypertension Qualified Code(s): I10 - Essential (primary) hypertension (19) Neuropathy Current Visit: No Status: Chronic (20) Nicotine dependence Current Visit: No Status: Chronic Qualifiers: Nicotine product type: cigarettes Substance use status: uncomplicated Qualified Code(s): F17.210 - Nicotine dependence, cigarettes, uncomplicated (21) Mood disorder Current Visit: No Status: Suspected (22) Schizoaffective disorder Current Visit: No Status: Ruled-out (23) Schizoaffective disorder Current Visit: No Status: Ruled-out - AMA Did Patient Leave Against Medical Advice: Yes
[2019-02-24] MEDS ORDERED: METHADONE HCL 5 MG TABLET (FOR DETOX USE ONLY) PO ONE (06:00)
== END 2019-02-23 14:59 | disposition left against medical advice (07) | DRG 770 ==
LOC: YASAS 10:30 → Y3N 12:20 → Y6N 02-21 16:52
PROVIDERS: ADMIT Allergy & Immunology; ATTEND Allergy & Immunology
PROC: HZ2ZZZZ Detoxification Services for Substance Abuse Treatment (ICD-10-PCS; principal; 2019-02-19)
DX: F10.230 Alcohol dependence with withdrawal, uncomplicated (principal); F11.23 Opioid dependence with withdrawal; F14.20 Cocaine dependence, uncomplicated; F17.210 Nicotine dependence, cigarettes, uncomplicated; F19.280 Other psychoactive substance dependence with psychoactive substance-induced anxiety disorder; F19.282 Other psychoactive substance dependence with psychoactive substance-induced sleep disorder; F19.24 Other psychoactive substance dependence with psychoactive substance-induced mood disorder; F20.9 Schizophrenia, unspecified; F31.9 Bipolar disorder, unspecified; F43.10 Post-traumatic stress disorder, unspecified; F41.8 Other specified anxiety disorders; I10 Essential (primary) hypertension; J45.909 Unspecified asthma, uncomplicated; E11.9 Type 2 diabetes mellitus without complications; Z79.84 Long term (current) use of oral hypoglycemic drugs; G62.9 Polyneuropathy, unspecified; M54.5 Low back pain; G89.29 Other chronic pain; N89.8 Other specified noninflammatory disorders of vagina; Z98.51 Tubal ligation status
CPT/HCPCS: 36415; 80053; 82962; 85027; 86593; 87389; J0735

== ENCOUNTER 2019-03-24 11:46 | Inpatient (IN) | payer OTHER ==
[2019-03-24 13:06] VITALS: BMI 21.4
--- NOTE | 2019-03-24 14:04 | HP ---
"COWS - Scale Resting Pulse: 1= [place] 81-100 Sweatin= Chills/Flushing Restless Observation: 1= Difficult to Sit Still Pupil Size: 0= Normal to Room Light Bone or Joint Aches: 2= Severe Diffuse Aches Runny Nose/ Eye Tearin= Runny Nose/Eyes GI Upset > 30mins: 2= Nausea/Diarrhea Tremor Observation: 2= Slight Tremor Visible Yawning Observation: 1= 1-2x During Session Anxiety or Irritability: 1=Feels Anxious/Irritable Goose Flesh Skin: 3=Piloerection COWS Score: 16 Admitting History and Physical - Admission History Source: Patient, Medical Record Limitations to Obtaining History: No Limitations - Past Medical History Cardiovascular: Yes: HTN Pulmonary: Yes: Asthma ...LMP: 06/03/13 Psych: Yes: Addictions, Bipolar Endocrine: Yes: Other (DM) - Smoking History Smoking history: Current some day smoker Have you smoked in the past 12 months: Yes Aproximately how many cigarettes per day: 10 - Alcohol/Substance Use Hx Alcohol Use: No History of Substance Use: reports: Heroin - Social History Usual Living Arrangement: Yes: Alone Admission [facility] Chief Complaint: I'm tired of drugging, I'm so tired of it Allergies/Adverse Reactions: Allergies Allergy/AdvReac Type Severity Reaction Status Date / Time No Known Drug Allergies Allergy Severe Verified 03/24/19 12:48 History of Present Illness: 53 yo woman here for detox from opiates. Patient not on disability, facing eviction due to common law 's two months ago from cancer - she has no income to pay the rent. No recent emergency room visits. History of drug related seizures and black outs. Patient was last here 02/19/19 for detox but left A - states this time she will stay and interested in being referred to methadone program. Patient with psych history but no recent psychiatric hospitalizations or medications. [facility] Search Terms: liz wells, 1965 Search Date: 03/24/2019 01:52:08 PM The Drug Utilization Report below displays all of the controlled substance prescriptions, if any, that your patient has filled in the last twelve months. The information displayed on this report is compiled from pharmacy submissions to the Department, and accurately reflects the information as submitted by the pharmacies. This report was requested by: Sofi Gilmore | Reference #: [id number] There are no results for the search terms that you entered. Exam Limitations: No Limitations - Ebola screening Have you traveled outside of the country in the last 21 days: No (N) Have you had contact with anyone from an Ebola affected area: No Do you have a fever: No - Review of Systems Constitutional: Loss of Appetite, Malaise, Changes in sleep EENT: reports: Blurred Vision, Nose Congestion Respiratory: reports: Cough, Wheezing Cardiac: reports: No Symptoms Reported GI: reports: Constipated, Nausea, Poor Appetite : reports: Dysuria Musculoskeletal: reports: Back Pain, Muscle Pain Integumentary: reports: Other (several small cuts on fingers) Neuro: reports: Headache, Numbness, Tremors Endocrine: reports: No Symptoms Reported Hematology: reports: No Symptoms Reported Psychiatric: reports: Judgement Intact, Mood/Affect Appropiate, Orientated x3, Anxious Other Systems: Reviewed and Negative Patient History - Patient Medical History Hx Anemia: No Hx Asthma: Yes Hx Chronic Obstructive Pulmonary Disease (COPD): No Hx Cancer: No Hx Cardiac Disorders: No Hx Congestive Heart Failure: No Hx Hypertension: Yes Hx Hypercholesterolemia: No Hx Pacemaker: No HX Cerebrovascular Accident: No Hx Seizures: Yes (two weeks ago) Hx Dementia: No Hx Diabetes: Yes (Type II BGM 185mg/dl) Hx Gastrointestinal Disorders: No Hx Liver Disease: No Hx Genitourinary Disorders: No Hx Sexually Transmitted Disorders: No Hx Renal Disease (ESRD): No Hx Thyroid Disease: No Hx Human Immunodeficiency Virus (HIV): No (2015 last negative) Hx Hepatitis C: No Hx Depression: Yes (hx seeing psych, hx meds) Hx Suicide Attempt: Yes (when young) Hx Bipolar Disorder: Yes Hx Schizophrenia: Yes (hospitalized in past years ago) - Patient Surgical History Past Surgical History: Yes Hx Neurologic Surgery: No Hx Cataract Extraction: No Hx Cardiac Surgery: No Hx Lung Surgery: No Hx Breast Surgery: No Hx Breast Biopsy: No Hx Abdominal Surgery: No Hx Appendectomy: No Hx Cholecystectomy: Yes Hx Genitourinary Surgery: No Hx Section: No Hx Orthopedic Surgery: No Other Surgical History: Tubal ligation 1991 Anesthesia Reaction: No - PPD History Date: 11/10/17 Results: 0mm - Reproductive History Last Menstrual Period: 03/02/14 - Smoking Cessation Smoking history: Current some day smoker Have you smoked in the past 12 months: Yes Aproximately how many cigarettes per day: 5 Cigars Per Day: 0 Hx Chewing Tobacco Use: No Initiated information on smoking cessation: Yes 'Breaking Loose' booklet given: 03/24/19 (give on floor) - Substance & Tx. History Hx Alcohol Use: Yes (no dependence) Hx Substance Use: Yes Substance Use Type: Alcohol, Cocaine, Heroin Hx Substance Use Treatment: Yes (detox, rehab) - Substances abused Heroin Substance route: Inhalation Frequency: Daily Amount used: $500 Age of first use: 42 Date of last use: 03/24/19 Crack Substance route: Smoking Frequency: Daily Amount used: $500 Age of first use: 21 Date of last use: 03/24/19 Alcohol Substance route: Oral Frequency: 1-2 times per week Amount used: 6 (12oz) beer Age of first use: 13 Date of last use: 03/17/19 Admission Physical Exam S - Vital Signs Vital Signs: Vital Signs - 24 hr 03/24/19 12:59 Temperature 97.2 F L Pulse Rate 93 H Respiratory 18 Rate Blood Pressure 124/83 - Physical General Appearance: Yes: Nourished, Appropriately Dressed, Moderate Distress, Thin, Anxious HEENTM: Yes: EOMI, Hearing grossly Normal, Normocephalic, Normal Voice, Pharynx Normal, Nasal Congestion, Rhinorrhea, Other (poor dentition) Respiratory: Yes: Wheezing Neck: Yes: No masses,lesions,Nodules Breast: Yes: Breast Exam Deferred Cardiology: Yes: Regular Rhythm, Regular Rate Abdominal: Yes: Flat, Soft Genitourinary: Yes: Dysuria, Vaginal Discharge (discharge for one month ( yellowish, non itchy, non painful)) Back: Yes: Normal Inspection Musculoskeletal: Yes: full range of Motion, Gait Steady, Back pain, Muscle Pain Extremities: Yes: Normal Inspection, Normal Range of Motion, Non-Tender, Tremors Neurological: Yes: Fully Oriented, Alert, Motor Strength 5/5, Normal Mood/Affect , Normal Response, Numbness Integumentary: Yes: Normal Color, Warm, Other (several cuts on her fingers) Lymphatic: Yes: Within Normal Limits - Diagnostic (1) Opioid dependence with withdrawal Current Visit: Yes Status: Chronic (2) Cocaine dependence Current Visit: Yes Status: Chronic Qualifiers: Complication of substance-induced condition: with unspecified complication (3) DM2 (diabetes mellitus, type 2) Current Visit: Yes Status: Chronic Qualifiers: Diabetes mellitus superintendent container terminal insulin use: without correction use Chronic kidney disease stage: unspecified stage (4) Hypertension Current Visit: Yes Status: Chronic Qualifiers: Hypertension type: essential hypertension Qualified Code(s): I10 - Essential (primary) hypertension (5) Nicotine dependence Current Visit: Yes Status: Chronic Qualifiers: Nicotine product type: cigarettes Substance use status: uncomplicated Qualified Code(s): F17.210 - Nicotine dependence, cigarettes, uncomplicated (6) Osteoarthritis Current Visit: Yes Status: Acute Qualifiers: Osteoarthritis location: multiple joints Osteoarthritis type: primary Qualified Code(s): M15.0 - Primary generalized (osteo)arthritis (7) Dysuria Current Visit: Yes Status: Acute (8) Bronchial asthma Current Visit: Yes Status: Chronic Qualifiers: Asthma severity: moderate Asthma persistence: persistent Asthma complication type: with acute exacerbation Qualified Code(s): J45.41 - Moderate persistent asthma with (acute) exacerbation Comment: given albuteral nebulizer for wheezing/cough with good response (9) Neuropathy Current Visit: Yes Status: Chronic Cleared for Admission S - Detox or Rehab [facility] Level of Care: Medically Managed Detox Regimen/Protocol: Methadone Breathalyzer - Breathalyzer Breathalyzer: 0 Urine Drug Screen - Test Device Lot number: [id number] Expiration date: 11/01/20 - Control Is test valid?: Yes - Results Drug screen NEGATIVE: No Urine drug screen results: LOLLY-Cocaine, FEN-Fentanyl, MOP-Opiates Inpatient Rehab Admission - Rehab Decision to Admit Inpatient rehab admission?: No"
[2019-03-24] MEDS ORDERED: MAGNESIUM CITRATE 300 ML BOTTLE PO PRN (14:15)
[2019-03-24] MEDS ORDERED: clonazePAM 0.5 MG TABLET PO PRN (14:15)
[2019-03-24] MEDS ORDERED: cloNIDine HCL 0.1 MG TABLET PO PRN (14:15)
[2019-03-24] MEDS ORDERED: MAG HYDROX/AL HYDROX/SIMETH 30 ML UNIT-DOSE CUP PO PRN (14:15)
[2019-03-24] MEDS ORDERED: MELATONIN 5 MG TABLETS PO PRN (14:15)
[2019-03-24] MEDS ORDERED: MENTHOL/PHENOL 1 EACH UD MM PRN (14:15)
[2019-03-24] MEDS ORDERED: MAGNESIUM HYDROX 2400MG/30ML ORAL SUSPENSION 30 ML CUP PO PRN (14:15)
[2019-03-24] MEDS ORDERED: ACETAMINOPHEN 325 MG TABLET (FP) PO PRN ×2 (14:15)
[2019-03-24] MEDS ORDERED: METHADONE HCL 10 MG TABLET (FOR DETOX USE ONLY) PO ONE (14:15)
[2019-03-24] MEDS ORDERED: BISACODYL 5 MG TABLET.DR (FP) PO PRN (14:18)
[2019-03-24] MEDS ORDERED: ALBUTEROL SO4 8 GM HFA INHALER IH PRN (14:18)
[2019-03-24] MEDS ORDERED: ALBUTEROL SO4 2.5/IPRATROPIUM 0.5 INH SOL 3 ML VIAL.NEB. NEB PRN (14:21)
[2019-03-24] MEDS: GABAPENTIN 400 MG CAPSULE (FP) PO SCH ×2 (15:52→22:51)
[2019-03-24] MEDS: ASPIRIN 81 MG CHEWABLE TABLETS PO SCH (15:53)
[2019-03-24] MEDS: LISINOPRIL 10 MG TABLET (FP) PO SCH (15:53)
[2019-03-24] MEDS: metFORMIN HCL 500 MG TABLET (FP) PO SCH (15:53)
[2019-03-24] MEDS: THIAMINE HCL 100 MG TABLET (FP) PO SCH (22:51)
[2019-03-24] MEDS: MUPIROCIN 2% TOPICAL OINTMENT 22 GM TUBE TP SCH (22:52)
[2019-03-24] MEDS: BUDESONIDE/FORMETEROL FUMARATE 160/4.5 mcg INHALER IH SCH (22:53)
[2019-03-24] MEDS: METHYL SALICYLATE/MENTHOL OINT 30 GM TUBE TP SCH (23:06)
[2019-03-25] MEDS: GABAPENTIN 400 MG CAPSULE (FP) PO SCH ×3 (06:07→22:10)
[2019-03-25] MEDS ORDERED: METHADONE HCL 5 MG TABLET (FOR DETOX USE ONLY) ONE ×2 (09:51→10:40)
[2019-03-25] MEDS ORDERED: METHADONE HCL 10 MG TABLET (FOR DETOX USE ONLY) ONE ×2 (09:51→10:41)
[2019-03-25] MEDS ORDERED: METHADONE (DETOX) 20 MG, METHADONE (DETOX) 5 MG PO ONE (10:00)
[2019-03-25] MEDS: METHOCARBAMOL 500 MG TABLET PO PRN ×2 (10:29→21:02)
[2019-03-25] MEDS: BUDESONIDE/FORMETEROL FUMARATE 160/4.5 mcg INHALER IH SCH ×2 (10:29→21:02)
[2019-03-25] MEDS: metFORMIN HCL 500 MG TABLET (FP) PO SCH (10:30)
[2019-03-25] MEDS: PRENATAL VITAMINS W/ FOLIC ACID TABLET (FP) PO SCH (10:30)
[2019-03-25] MEDS: ASPIRIN 81 MG CHEWABLE TABLETS PO SCH (10:30)
[2019-03-25] MEDS: LISINOPRIL 10 MG TABLET (FP) PO SCH (10:30)
[2019-03-25] MEDS: FLUTICASONE PROP 0.05% 16 GM NASAL SPRAY NS SCH (10:31)
[2019-03-25 10:37] LABS: HEMOGLOBIN 12.6 GM/dL (10.7-15.3); MCH 29.4 pg (25.7-33.7); MEAN CELL VOLUME 88.9 fl (80-96); MEAN PLT VOLUME 7.8 fl (7.5-11.1); PLATELET COUNT 320 K/MM3 (134-434); RBC 4.28 M/mm3 (3.60-5.2); RDW 14.9 % (11.6-15.6); WHITE BLOOD COUNT 9.2 K/mm3 (4.0-10.0)
[2019-03-25] MEDS: METHYL SALICYLATE/MENTHOL OINT 30 GM TUBE TP SCH ×2 (10:42→22:09)
[2019-03-25 10:55] LABS: ALBUMIN 2.9 g/dl (3.4-5.0); BILIRUBIN,TOTAL 0.2 mg/dL (0.2-1); BLOOD UREA NITROGEN 20.7 mg/dL (7-18); CALCIUM 9.2 mg/dL (8.5-10.1); POTASSIUM 3.8 mmol/L (3.5-5.1); TOT PROT 6.1 g/dl (6.4-8.2)
--- NOTE | 2019-03-25 13:41 | PN ---
BHS COWS - Scale Resting Pulse: 1= [place] 81-100 Sweatin= Beads of Sweat on Face Restless Observation: 1= Difficult to Sit Still Pupil Size: 0= Normal to Room Light Bone or Joint Aches: 2= Severe Diffuse Aches Runny Nose/ Eye Tearin= None GI Upset > 30mins: 0= None Tremor Observation of Outstretched Hands: 2= Slight Tremor Visible Yawning Observation: 1= 1-2x During Session Anxiety or Irritability: 2=Irritable/Anxious Goose Flesh Skin: 0=Smooth Skin COWS Score: 12 S Progress Note (SOAP) Subjective: c/o anxiety, headache, muscle aches, sweats, and constipation. Pt states that colace works better for her constipation. Objective: 03/25/19 13:38 Vital Signs 03/25/19 03/25/19 06:38 10:16 Temperature 97.5 F L 98 F Pulse Rate 105 H 93 H Respiratory 20 16 Rate Blood Pressure 145/89 130/70 Laboratory Last Values WBC 9.2 K/mm3 (4.0-10.0) 03/25/19 07:35 RBC 4.28 M/mm3 (3.60-5.2) 03/25/19 07:35 Hgb 12.6 GM/dL (10.7-15.3) 03/25/19 07:35 Hct 38.0 % (32.4-45.2) 03/25/19 07:35 MCV 88.9 fl (80-96) 03/25/19 07:35 MCH 29.4 pg (25.7-33.7) 03/25/19 07:35 MCHC 33.0 g/dl (32.0-36.0) 03/25/19 07:35 RDW 14.9 % (11.6-15.6) 03/25/19 07:35 Plt Count 320 K/MM3 (134-434) 03/25/19 07:35 MPV 7.8 fl (7.5-11.1) 03/25/19 07:35 Sodium 145 mmol/L (136-145) 03/25/19 07:35 Potassium 3.8 mmol/L (3.5-5.1) 03/25/19 07:35 Chloride 109 mmol/L (98-107) H 03/25/19 07:35 Carbon Dioxide 28 mmol/L (21-32) 03/25/19 07:35 Anion Gap 7 MMOL/L (8-16) L 03/25/19 07:35 BUN 20.7 mg/dL (7-18) H 03/25/19 07:35 Creatinine 1.0 mg/dL (0.55-1.3) 03/25/19 07:35 Est GFR (CKD-EPI)AfAm 75.54 03/25/19 07:35 Est GFR (CKD-EPI)NonAf 65.18 03/25/19 07:35 POC Glucometer 142 UNITS (80-120) 03/25/19 06:06 Random Glucose 118 mg/dL (74-106) H 03/25/19 07:35 Calcium 9.2 mg/dL (8.5-10.1) 03/25/19 07:35 Total Bilirubin 0.2 mg/dL (0.2-1) 03/25/19 07:35 AST 11 U/L (15-37) L 03/25/19 07:35 ALT 12 U/L (13-61) L 03/25/19 07:35 Alkaline Phosphatase 88 U/L (45-117) 03/25/19 07:35 Total Protein 6.1 g/dl (6.4-8.2) L 03/25/19 07:35 Albumin 2.9 g/dl (3.4-5.0) L 03/25/19 07:35 Labs noted. Assessment: 03/25/19 13:38 AOX3, in no acute respiratory distress. Full ROM, ambulating in the unit. Withdrawal symptoms. c/o constipation. 03/25/19 13:38 03/25/19 13:42 Plan: continue detox. d/c mom, and citroma. colace 100mg po 3times/day.
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
[2019-03-25] MEDS: DOCUSATE SODIUM 100 MG CAPSULE (FP) PO SCH ×2 (14:42→22:10)
[2019-03-25] MEDS: hydrOXYzine PAMOATE 25 MG CAPSULE (FP) PO PRN ×3 (14:45→22:11)
[2019-03-25] MEDS: MUPIROCIN 2% TOPICAL OINTMENT 22 GM TUBE TP SCH (14:51)
[2019-03-25] MEDS: THIAMINE HCL 100 MG TABLET (FP) PO SCH (22:10)
[2019-03-26] MEDS: hydrOXYzine PAMOATE 25 MG CAPSULE (FP) PO PRN ×2 (05:21→22:24)
[2019-03-26] MEDS: DOCUSATE SODIUM 100 MG CAPSULE (FP) PO SCH ×3 (05:21→22:22)
[2019-03-26] MEDS: FLUTICASONE PROP 0.05% 16 GM NASAL SPRAY NS SCH ×2 (05:22→10:37)
[2019-03-26] MEDS: GABAPENTIN 400 MG CAPSULE (FP) PO SCH ×3 (06:24→22:22)
[2019-03-26] MEDS ORDERED: METHADONE HCL 10 MG TABLET (FOR DETOX USE ONLY) PO ONE (10:00)
[2019-03-26] MEDS: PRENATAL VITAMINS W/ FOLIC ACID TABLET (FP) PO SCH (10:34)
[2019-03-26] MEDS: MUPIROCIN 2% TOPICAL OINTMENT 22 GM TUBE TP SCH ×2 (10:35→14:06)
[2019-03-26] MEDS: ASPIRIN 81 MG CHEWABLE TABLETS PO SCH (10:35)
[2019-03-26] MEDS: metFORMIN HCL 500 MG TABLET (FP) PO SCH (10:35)
[2019-03-26] MEDS: METHYL SALICYLATE/MENTHOL OINT 30 GM TUBE TP SCH ×2 (10:35→22:28)
[2019-03-26] MEDS: LISINOPRIL 10 MG TABLET (FP) PO SCH (10:37)
[2019-03-26] MEDS: BUDESONIDE/FORMETEROL FUMARATE 160/4.5 mcg INHALER IH SCH ×2 (10:37→22:38)
--- NOTE | 2019-03-26 11:01 | PN ---
BHS COWS - Scale Resting Pulse: 1= [place] 81-100 Sweatin= No chills or Flushing Restless Observation: 1= Difficult to Sit Still Pupil Size: 0= Normal to Room Light Bone or Joint Aches: 1= Mild Discomfort Runny Nose/ Eye Tearin= None GI Upset > 30mins: 0= None Tremor Observation of Outstretched Hands: 0= None Yawning Observation: 0= None Anxiety or Irritability: 1=Feels Anxious/Irritable Goose Flesh Skin: 0=Smooth Skin COWS Score: 4 BHS Progress Note (SOAP) Subjective: much better anxiety Objective: 03/26/19 11:00 Vital Signs Temperature 97.3 F L 03/26/19 09:27 Pulse Rate 115 H 03/26/19 09:27 Respiratory Rate 18 03/26/19 09:27 Blood Pressure 119/64 03/26/19 09:27 O2 Sat by Pulse Oximetry (%) Laboratory Tests 03/24/19 03/25/19 03/25/19 16:40 06:06 07:35 WBC 9.2 RBC 4.28 Hgb 12.6 Hct 38.0 MCV 88.9 MCH 29.4 MCHC 33.0 RDW 14.9 Plt Count 320 MPV 7.8 Sodium Potassium Chloride Carbon Dioxide Anion Gap BUN Creatinine Est GFR (CKD-EPI)AfAm Est GFR (CKD-EPI)NonAf POC Glucometer 163 142 Random Glucose Calcium Total Bilirubin AST ALT Alkaline Phosphatase Total Protein Albumin RPR Titer HIV 1&2 Antibody Screen HIV P24 Antigen 03/25/19 03/25/19 03/25/19 07:35 07:35 07:35 WBC RBC Hgb Hct MCV MCH MCHC RDW Plt Count MPV Sodium 145 Potassium 3.8 Chloride 109 H Carbon Dioxide 28 Anion Gap 7 L BUN 20.7 H Creatinine 1.0 Est GFR (CKD-EPI)AfAm 75.54 Est GFR (CKD-EPI)NonAf 65.18 POC Glucometer Random Glucose 118 H Calcium 9.2 Total Bilirubin 0.2 AST 11 L ALT 12 L Alkaline Phosphatase 88 Total Protein 6.1 L Albumin 2.9 L RPR Titer Nonreactive HIV 1&2 Antibody Screen Negative HIV P24 Antigen Negative 03/25/19 03/26/19 16:33 05:16 WBC RBC Hgb Hct MCV MCH MCHC RDW Plt Count MPV Sodium Potassium Chloride Carbon Dioxide Anion Gap BUN Creatinine Est GFR (CKD-EPI)AfAm Est GFR (CKD-EPI)NonAf POC Glucometer 126 132 Random Glucose Calcium Total Bilirubin AST ALT Alkaline Phosphatase Total Protein Albumin RPR Titer HIV 1&2 Antibody Screen HIV P24 Antigen aaox3 ambulating no acute distress Assessment: 03/26/19 11:00 mild withdrawals Plan: complete with last dose of detox medication d/c today
--- NOTE | 2019-03-26 11:02 | DS ---
[facility] Detox Discharge Summary Admission Date: 03/24/19 Discharge Date: 03/26/19 - History Present History: Cocaine Dependence, Opioid Dependence - Physical Exam Results Vital Signs: Vital Signs Temperature 97.3 F L 03/26/19 09:27 Pulse Rate 115 H 03/26/19 09:27 Respiratory Rate 18 03/26/19 09:27 Blood Pressure 119/64 03/26/19 09:27 O2 Sat by Pulse Oximetry (%) Pertinent Admission Physical Exam Findings: Vital Signs Temperature 97.3 F L 03/26/19 09:27 Pulse Rate 115 H 03/26/19 09:27 Respiratory Rate 18 03/26/19 09:27 Blood Pressure 119/64 03/26/19 09:27 O2 Sat by Pulse Oximetry (%) Laboratory Tests 03/24/19 03/25/19 03/25/19 16:40 06:06 07:35 WBC 9.2 RBC 4.28 Hgb 12.6 Hct 38.0 MCV 88.9 MCH 29.4 MCHC 33.0 RDW 14.9 Plt Count 320 MPV 7.8 Sodium Potassium Chloride Carbon Dioxide Anion Gap BUN Creatinine Est GFR (CKD-EPI)AfAm Est GFR (CKD-EPI)NonAf POC Glucometer 163 142 Random Glucose Calcium Total Bilirubin AST ALT Alkaline Phosphatase Total Protein Albumin RPR Titer HIV 1&2 Antibody Screen HIV P24 Antigen 03/25/19 03/25/19 03/25/19 07:35 07:35 07:35 WBC RBC Hgb Hct MCV MCH MCHC RDW Plt Count MPV Sodium 145 Potassium 3.8 Chloride 109 H Carbon Dioxide 28 Anion Gap 7 L BUN 20.7 H Creatinine 1.0 Est GFR (CKD-EPI)AfAm 75.54 Est GFR (CKD-EPI)NonAf 65.18 POC Glucometer Random Glucose 118 H Calcium 9.2 Total Bilirubin 0.2 AST 11 L ALT 12 L Alkaline Phosphatase 88 Total Protein 6.1 L Albumin 2.9 L RPR Titer Nonreactive HIV 1&2 Antibody Screen Negative HIV P24 Antigen Negative 03/25/19 03/26/19 16:33 05:16 WBC RBC Hgb Hct MCV MCH MCHC RDW Plt Count MPV Sodium Potassium Chloride Carbon Dioxide Anion Gap BUN Creatinine Est GFR (CKD-EPI)AfAm Est GFR (CKD-EPI)NonAf POC Glucometer 126 132 Random Glucose Calcium Total Bilirubin AST ALT Alkaline Phosphatase Total Protein Albumin RPR Titer HIV 1&2 Antibody Screen HIV P24 Antigen aaox3 ambulating no acute distress - Treatment Hospital Course: Detox Protocol Followed, Detoxed Safely, Responded well, Discharged Condition Good, Rehab Referral Accepted Patient has Accepted a Rehab Referral to: pt declined; referral provided - Medication Discharge Medications: Ambulatory Orders Docusate Sodium [Colace -] 100 mg PO TID 07/13/16 Gabapentin [Neurontin -] 400 mg PO Q8H #90 capsule 08/02/16 Salmeterol/Fluticasone [Advair 250Mcg/50Mcg -] 1 inh PO DAILY 11/08/17 Aspirin [ASA -] 81 mg PO DAILY #30 mg 08/11/18 Bisacodyl [Bisacodyl -] 5 mg PO DAILY PRN #30 tablet. 08/11/18 Fluticasone Prop 0.05% Nasal [Flonase -] 2 spray NS DAILY #1 spray 08/11/18 Naloxone HCl [Narcan] 4 mg NS ASDIR PRN #1 spray 02/21/19 Albuterol Sulfate Inhaler - [Ventolin HFA Inhaler -] 2 inh PO Q4H PRN #1 inhaler 02/23/19 Lisinopril [Prinivil] 20 mg PO DAILY #30 tablet 02/23/19 metFORMIN HCL [Glucophage -] 500 mg PO DAILY #30 mg 02/23/19 - Diagnosis (1) Cocaine use disorder Current Visit: Yes Status: Acute (2) Dysuria Current Visit: Yes Status: Acute (3) Opioid dependence with withdrawal Current Visit: Yes Status: Acute (4) Osteoarthritis Current Visit: Yes Status: Acute Qualifiers: Osteoarthritis location: multiple joints Osteoarthritis type: primary Qualified Code(s): M15.0 - Primary generalized (osteo)arthritis (5) Substance induced mood disorder Current Visit: Yes Status: Acute (6) Substance-induced sleep disorder Current Visit: Yes Status: Acute (7) Bronchial asthma Current Visit: Yes Status: Chronic Qualifiers: Asthma severity: moderate Asthma persistence: persistent Asthma complication type: with acute exacerbation Qualified Code(s): J45.41 - Moderate persistent asthma with (acute) exacerbation (8) Cocaine dependence Current Visit: Yes Status: Chronic Qualifiers: Complication of substance-induced condition: with unspecified complication (9) DM2 (diabetes mellitus, type 2) Current Visit: Yes Status: Chronic Qualifiers: Diabetes mellitus shelter insulin use: without shelter use Chronic kidney disease stage: unspecified stage (10) Hypertension Current Visit: Yes Status: Chronic Qualifiers: Hypertension type: essential hypertension Qualified Code(s): I10 - Essential (primary) hypertension (11) Neuropathy Current Visit: Yes Status: Chronic (12) Nicotine dependence Current Visit: Yes Status: Chronic Qualifiers: Nicotine product type: cigarettes Substance use status: uncomplicated Qualified Code(s): F17.210 - Nicotine dependence, cigarettes, uncomplicated (13) Post traumatic stress disorder (PTSD) Current Visit: Yes Status: Chronic (14) Abdominal pain Current Visit: No Status: Acute Qualifiers: Abdominal location: generalized Qualified Code(s): R10.84 - Generalized abdominal pain (15) Insomnia Current Visit: No Status: Acute (16) Substance induced mood disorder Current Visit: No Status: Acute (17) Substance-induced anxiety disorder Current Visit: No Status: Acute (18) Alcohol dependence with uncomplicated withdrawal Current Visit: No Status: Chronic (19) Anxiety and depression Current Visit: No Status: Chronic (20) Bipolar disorder Current Visit: No Status: Chronic (21) Bipolar disorder Current Visit: No Status: Chronic (22) Essential hypertension Current Visit: No Status: Chronic (23) Mood disorder Current Visit: No Status: Chronic (24) Mood disorder Current Visit: No Status: Suspected (25) Schizophrenia Current Visit: No Status: Suspected (26) Schizoaffective disorder Current Visit: No Status: Ruled-out (27) Schizoaffective disorder Current Visit: No Status: Ruled-out - AMA Did Patient Leave Against Medical Advice: No
--- NOTE | 2019-03-26 11:20 | PN ---
BHS COWS - Scale Resting Pulse: 2= [place] 101-120 Sweatin= Chills/Flushing Restless Observation: 1= Difficult to Sit Still Pupil Size: 0= Normal to Room Light Bone or Joint Aches: 1= Mild Discomfort Runny Nose/ Eye Tearin= Nasal Congestion GI Upset > 30mins: 0= None Tremor Observation of Outstretched Hands: 1= Tremor [place], Not Seen Yawning Observation: 1= 1-2x During Session Anxiety or Irritability: 2=Irritable/Anxious Goose Flesh Skin: 0=Smooth Skin COWS Score: 10 BHS Progress Note (SOAP) Subjective: sweats shakes interrupted sleep body aches anxiety i dont want the vitamins Objective: 03/26/19 11:18 Vital Signs Temperature 97.3 F L 03/26/19 09:27 Pulse Rate 115 H 03/26/19 09:27 Respiratory Rate 18 03/26/19 09:27 Blood Pressure 119/64 03/26/19 09:27 O2 Sat by Pulse Oximetry (%) Laboratory Tests 03/24/19 03/25/19 03/25/19 16:40 06:06 07:35 WBC 9.2 RBC 4.28 Hgb 12.6 Hct 38.0 MCV 88.9 MCH 29.4 MCHC 33.0 RDW 14.9 Plt Count 320 MPV 7.8 Sodium Potassium Chloride Carbon Dioxide Anion Gap BUN Creatinine Est GFR (CKD-EPI)AfAm Est GFR (CKD-EPI)NonAf POC Glucometer 163 142 Random Glucose Calcium Total Bilirubin AST ALT Alkaline Phosphatase Total Protein Albumin RPR Titer HIV 1&2 Antibody Screen HIV P24 Antigen 03/25/19 03/25/19 03/25/19 07:35 07:35 07:35 WBC RBC Hgb Hct MCV MCH MCHC RDW Plt Count MPV Sodium 145 Potassium 3.8 Chloride 109 H Carbon Dioxide 28 Anion Gap 7 L BUN 20.7 H Creatinine 1.0 Est GFR (CKD-EPI)AfAm 75.54 Est GFR (CKD-EPI)NonAf 65.18 POC Glucometer Random Glucose 118 H Calcium 9.2 Total Bilirubin 0.2 AST 11 L ALT 12 L Alkaline Phosphatase 88 Total Protein 6.1 L Albumin 2.9 L RPR Titer Nonreactive HIV 1&2 Antibody Screen Negative HIV P24 Antigen Negative 03/25/19 03/26/19 16:33 05:16 WBC RBC Hgb Hct MCV MCH MCHC RDW Plt Count MPV Sodium Potassium Chloride Carbon Dioxide Anion Gap BUN Creatinine Est GFR (CKD-EPI)AfAm Est GFR (CKD-EPI)NonAf POC Glucometer 126 132 Random Glucose Calcium Total Bilirubin AST ALT Alkaline Phosphatase Total Protein Albumin RPR Titer HIV 1&2 Antibody Screen HIV P24 Antigen labs noted aaox3 ambulating no acute distress Assessment: 03/26/19 11:19 withdrawals Plan: continue detox increase fluids pt was made aware of klonopin prn to ask for belsorma also ordered by psych pt also made aware
[2019-03-26] MEDS: SIMETHICONE 80 MG TAB.CHEW (FP) PO PRN ×2 (15:59→19:52)
[2019-03-26] MEDS: THIAMINE HCL 100 MG TABLET (FP) PO SCH (22:22)
[2019-03-26] MEDS: SUVOREXANT 10 MG TABLET PO PRN (22:23)
[2019-03-26] MEDS: METHOCARBAMOL 500 MG TABLET PO PRN (22:24)
[2019-03-27] MEDS: BISMUTH SUBSALICYLATE 524 MG/30 ML UD PO PRN (04:55)
[2019-03-27] MEDS: DOCUSATE SODIUM 100 MG CAPSULE (FP) PO SCH ×3 (05:43→22:33)
[2019-03-27] MEDS: hydrOXYzine PAMOATE 25 MG CAPSULE (FP) PO PRN (05:43)
[2019-03-27] MEDS: GABAPENTIN 400 MG CAPSULE (FP) PO SCH ×3 (05:43→22:33)
[2019-03-27] MEDS: MUPIROCIN 2% TOPICAL OINTMENT 22 GM TUBE TP SCH ×3 (05:44→13:19)
[2019-03-27] MEDS: METHOCARBAMOL 500 MG TABLET PO PRN ×2 (06:25→17:11)
[2019-03-27] MEDS ORDERED: METHADONE HCL 5 MG TABLET (FOR DETOX USE ONLY) ONE (08:37)
[2019-03-27] MEDS ORDERED: METHADONE HCL 10 MG TABLET (FOR DETOX USE ONLY) ONE (08:37)
[2019-03-27] MEDS: FLUTICASONE PROP 0.05% 16 GM NASAL SPRAY NS SCH (09:43)
[2019-03-27] MEDS: METHYL SALICYLATE/MENTHOL OINT 30 GM TUBE TP SCH ×2 (09:43→22:35)
[2019-03-27] MEDS: metFORMIN HCL 500 MG TABLET (FP) PO SCH (09:46)
[2019-03-27] MEDS: diazePAM 5 MG TABLET PO PRN ×3 (09:47→22:37)
[2019-03-27] MEDS: LISINOPRIL 10 MG TABLET (FP) PO SCH (09:47)
[2019-03-27] MEDS: ASPIRIN 81 MG CHEWABLE TABLETS PO SCH (09:48)
[2019-03-27] MEDS ORDERED: METHADONE (DETOX) 10 MG, METHADONE (DETOX) 5 MG PO ONE (10:00)
--- NOTE | 2019-03-27 10:13 | PN ---
BHS COWS - Scale Resting Pulse: 1= [place] 81-100 Sweatin= Chills/Flushing Restless Observation: 1= Difficult to Sit Still Pupil Size: 0= Normal to Room Light Bone or Joint Aches: 1= Mild Discomfort Runny Nose/ Eye Tearin= Nasal Congestion GI Upset > 30mins: 0= None Tremor Observation of Outstretched Hands: 1= Tremor [place], Not Seen Yawning Observation: 1= 1-2x During Session Anxiety or Irritability: 2=Irritable/Anxious Goose Flesh Skin: 0=Smooth Skin COWS Score: 9 BHS Progress Note (SOAP) Subjective: irritable agitation sweats nasal congestion anxiety Objective: 03/27/19 10:11 Vital Signs Temperature 98.2 F 03/27/19 09:32 Pulse Rate 100 H 03/27/19 09:32 Respiratory Rate 20 03/27/19 09:32 Blood Pressure 138/78 03/27/19 09:32 O2 Sat by Pulse Oximetry (%) Laboratory Tests 03/24/19 03/24/19 03/25/19 08:39 16:40 06:06 WBC RBC Hgb Hct MCV MCH MCHC RDW Plt Count MPV Sodium Potassium Chloride Carbon Dioxide Anion Gap BUN Creatinine Est GFR (CKD-EPI)AfAm Est GFR (CKD-EPI)NonAf POC Glucometer 163 142 Random Glucose Calcium Total Bilirubin AST ALT Alkaline Phosphatase Total Protein Albumin POC Urine HCG, Qual Negative RPR Titer HIV 1&2 Antibody Screen HIV P24 Antigen 03/25/19 03/25/19 03/25/19 07:35 07:35 07:35 WBC 9.2 RBC 4.28 Hgb 12.6 Hct 38.0 MCV 88.9 MCH 29.4 MCHC 33.0 RDW 14.9 Plt Count 320 MPV 7.8 Sodium 145 Potassium 3.8 Chloride 109 H Carbon Dioxide 28 Anion Gap 7 L BUN 20.7 H Creatinine 1.0 Est GFR (CKD-EPI)AfAm 75.54 Est GFR (CKD-EPI)NonAf 65.18 POC Glucometer Random Glucose 118 H Calcium 9.2 Total Bilirubin 0.2 AST 11 L ALT 12 L Alkaline Phosphatase 88 Total Protein 6.1 L Albumin 2.9 L POC Urine HCG, Qual RPR Titer Nonreactive HIV 1&2 Antibody Screen HIV P24 Antigen 03/25/19 03/25/19 03/26/19 07:35 16:33 05:16 WBC RBC Hgb Hct MCV MCH MCHC RDW Plt Count MPV Sodium Potassium Chloride Carbon Dioxide Anion Gap BUN Creatinine Est GFR (CKD-EPI)AfAm Est GFR (CKD-EPI)NonAf POC Glucometer 126 132 Random Glucose Calcium Total Bilirubin AST ALT Alkaline Phosphatase Total Protein Albumin POC Urine HCG, Qual RPR Titer HIV 1&2 Antibody Screen Negative HIV P24 Antigen Negative 03/26/19 03/27/19 16:27 05:02 WBC RBC Hgb Hct MCV MCH MCHC RDW Plt Count MPV Sodium Potassium Chloride Carbon Dioxide Anion Gap BUN Creatinine Est GFR (CKD-EPI)AfAm Est GFR (CKD-EPI)NonAf POC Glucometer 130 107 Random Glucose Calcium Total Bilirubin AST ALT Alkaline Phosphatase Total Protein Albumin POC Urine HCG, Qual RPR Titer HIV 1&2 Antibody Screen HIV P24 Antigen aaox3 ambulating labs noted elevated BUN; encourage increase fluids Assessment: 03/27/19 10:12 withdrawals Plan: continue detox flonase bid ordered klonpin d/c; valium 10mg q4hr prn x 3 days ordered repeat chem
[2019-03-27 10:39] LABS: EPI CELLS 2.9 /HPF (0-5/HPF); HYALINE CASTS 2 /lpf (0-8); PH,URINE 5.5 (5.0-8.0); URINE APPEARANCE CLEAR; URINE BACTERIA 59.2 /hpf (NEGATIVE); URINE BILIRUBIN NEGATIVE (NEGATIVE); URINE COLOR YELLOW; URINE GLUCOSE (UA) NEGATIVE (NEGATIVE); URINE KETONE NEGATIVE (NEGATIVE); URINE LEUK ESTERASE TRACE (NEGATIVE); URINE NITRITE NEGATIVE (NEGATIVE); URINE PROTEIN NEGATIVE (NEGATIVE); URINE RBC 1 /hpf (0-4); URINE UROBILINOGEN 0.2 mg/dL (0.2-1.0); URINE WBC 4 /hpf (0-5)
[2019-03-27] MEDS: BUDESONIDE/FORMETEROL FUMARATE 160/4.5 mcg INHALER IH SCH ×2 (10:40→22:35)
[2019-03-27] MEDS ORDERED: FLUTICASONE PROP 0.05% 16 GM NASAL SPRAY NS SCH (22:00)
[2019-03-27] MEDS: THIAMINE HCL 100 MG TABLET (FP) PO SCH (22:33)
[2019-03-27] MEDS: SUVOREXANT 10 MG TABLET PO PRN (22:37)
[2019-03-28] MEDS: METHOCARBAMOL 500 MG TABLET PO PRN (03:15)
[2019-03-28] MEDS: hydrOXYzine PAMOATE 25 MG CAPSULE (FP) PO PRN ×3 (03:15→22:58)
[2019-03-28] MEDS: MUPIROCIN 2% TOPICAL OINTMENT 22 GM TUBE TP SCH ×3 (05:23→22:54)
[2019-03-28] MEDS: DOCUSATE SODIUM 100 MG CAPSULE (FP) PO SCH (05:23)
[2019-03-28] MEDS: NICOTINE POLACRILEX 4 MG GUM BUC PRN ×2 (06:00→15:15)
[2019-03-28] MEDS: BISMUTH SUBSALICYLATE 524 MG/30 ML UD PO PRN (06:00)
[2019-03-28] MEDS ORDERED: FLUTICASONE PROP 0.05% 16 GM NASAL SPRAY NS SCH (06:00)
[2019-03-28] MEDS: GABAPENTIN 400 MG CAPSULE (FP) PO SCH ×3 (06:45→22:52)
[2019-03-28] MEDS ORDERED: LOPERAMIDE HCL 2 MG CAPSULE PO PRN (09:36)
[2019-03-28] MEDS: BUDESONIDE/FORMETEROL FUMARATE 160/4.5 mcg INHALER IH SCH ×2 (09:44→22:56)
[2019-03-28] MEDS: ASPIRIN 81 MG CHEWABLE TABLETS PO SCH (09:44)
[2019-03-28] MEDS: metFORMIN HCL 500 MG TABLET (FP) PO SCH (09:44)
[2019-03-28] MEDS: LISINOPRIL 10 MG TABLET (FP) PO SCH (09:44)
[2019-03-28] MEDS: diazePAM 5 MG TABLET PO PRN ×3 (09:45→22:52)
[2019-03-28] MEDS: METHYL SALICYLATE/MENTHOL OINT 30 GM TUBE TP SCH ×2 (09:46→23:57)
[2019-03-28] MEDS ORDERED: METHADONE HCL 10 MG TABLET (FOR DETOX USE ONLY) PO ONE (10:00)
[2019-03-28 11:08] LABS: ALBUMIN 2.9 g/dl (3.4-5.0); BILIRUBIN,TOTAL 0.2 mg/dL (0.2-1); BLOOD UREA NITROGEN 20.2 mg/dL (7-18); CALCIUM 9.2 mg/dL (8.5-10.1); CREATININE 0.7 mg/dL (0.55-1.3); TOT PROT 6.2 g/dl (6.4-8.2)
--- NOTE | 2019-03-28 12:09 | PN ---
BHS COWS - Scale Resting Pulse: 2= [place] 101-120 Sweatin= No chills or Flushing Restless Observation: 1= Difficult to Sit Still Pupil Size: 0= Normal to Room Light Bone or Joint Aches: 0= None Runny Nose/ Eye Tearin= None GI Upset > 30mins: 2= Nausea/Diarrhea Tremor Observation of Outstretched Hands: 1= Tremor [place], Not Seen Yawning Observation: 0= None Anxiety or Irritability: 1=Feels Anxious/Irritable Goose Flesh Skin: 0=Smooth Skin COWS Score: 7 BHS Progress Note (SOAP) Subjective: diarrhea anxiety Objective: 03/28/19 12:08 Vital Signs Temperature 98.1 F 03/28/19 09:28 Pulse Rate 103 H 03/28/19 09:28 Respiratory Rate 18 03/28/19 09:28 Blood Pressure 126/73 03/28/19 09:28 O2 Sat by Pulse Oximetry (%) aaox3 ambulating no acute distress Assessment: 03/28/19 12:09 withdrawals Plan: continue detox imodium x one d/c colace d/c in am
[2019-03-28] MEDS: SODIUM CHLORIDE NASAL SPRAY 44 ML BOTTLE NS PRN ×2 (15:15→22:54)
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
[2019-03-28] MEDS: THIAMINE HCL 100 MG TABLET (FP) PO SCH (22:56)
[2019-03-29] MEDS: hydrOXYzine PAMOATE 25 MG CAPSULE (FP) PO PRN (03:45)
[2019-03-29] MEDS: diazePAM 5 MG TABLET PO PRN (03:45)
[2019-03-29] MEDS ORDERED: METHADONE HCL 5 MG TABLET (FOR DETOX USE ONLY) PO ONE (06:00)
[2019-03-29] MEDS: MUPIROCIN 2% TOPICAL OINTMENT 22 GM TUBE TP SCH (06:12)
[2019-03-29] MEDS: GABAPENTIN 400 MG CAPSULE (FP) PO SCH (06:24)
[2019-03-29 09:22] VITALS: BP 139/84; PULSE 113; TEMP 97.3
--- NOTE | 2019-03-29 09:25 | DS ---
[facility] Detox Discharge Summary Admission Date: 03/24/19 Discharge Date: 03/29/19 - History Present History: Cocaine Dependence, Opioid Dependence - Physical Exam Results Vital Signs: Vital Signs Temperature 97.7 F 03/29/19 05:00 Pulse Rate 102 H 03/29/19 05:00 Respiratory Rate 18 03/29/19 05:00 Blood Pressure 135/80 03/29/19 05:00 O2 Sat by Pulse Oximetry (%) Pertinent Admission Physical Exam Findings: Vital Signs Temperature 97.7 F 03/29/19 05:00 Pulse Rate 102 H 03/29/19 05:00 Respiratory Rate 18 03/29/19 05:00 Blood Pressure 135/80 03/29/19 05:00 O2 Sat by Pulse Oximetry (%) Laboratory Tests 03/24/19 03/24/19 03/25/19 08:39 16:40 06:06 WBC RBC Hgb Hct MCV MCH MCHC RDW Plt Count MPV Sodium Potassium Chloride Carbon Dioxide Anion Gap BUN Creatinine Est GFR (CKD-EPI)AfAm Est GFR (CKD-EPI)NonAf POC Glucometer 163 142 Random Glucose Calcium Total Bilirubin AST ALT Alkaline Phosphatase Total Protein Albumin Urine Color Urine Appearance Urine pH Ur Specific [place] Urine Protein Urine Glucose (UA) Urine Ketones Urine Blood Urine Nitrite Urine Bilirubin Urine Urobilinogen Ur Leukocyte Esterase Urine WBC (Auto) Urine RBC (Auto) Urine Casts (Auto) U Epithel Cells (Auto) Urine Bacteria (Auto) POC Urine HCG, Qual Negative RPR Titer HIV 1&2 Antibody Screen HIV P24 Antigen 03/25/19 03/25/19 03/25/19 07:35 07:35 07:35 WBC 9.2 RBC 4.28 Hgb 12.6 Hct 38.0 MCV 88.9 MCH 29.4 MCHC 33.0 RDW 14.9 Plt Count 320 MPV 7.8 Sodium 145 Potassium 3.8 Chloride 109 H Carbon Dioxide 28 Anion Gap 7 L BUN 20.7 H Creatinine 1.0 Est GFR (CKD-EPI)AfAm 75.54 Est GFR (CKD-EPI)NonAf 65.18 POC Glucometer Random Glucose 118 H Calcium 9.2 Total Bilirubin 0.2 AST 11 L ALT 12 L Alkaline Phosphatase 88 Total Protein 6.1 L Albumin 2.9 L Urine Color Urine Appearance Urine pH Ur Specific [place] Urine Protein Urine Glucose (UA) Urine Ketones Urine Blood Urine Nitrite Urine Bilirubin Urine Urobilinogen Ur Leukocyte Esterase Urine WBC (Auto) Urine RBC (Auto) Urine Casts (Auto) U Epithel Cells (Auto) Urine Bacteria (Auto) POC Urine HCG, Qual RPR Titer Nonreactive HIV 1&2 Antibody Screen HIV P24 Antigen 03/25/19 03/25/19 03/26/19 07:35 16:33 05:16 WBC RBC Hgb Hct MCV MCH MCHC RDW Plt Count MPV Sodium Potassium Chloride Carbon Dioxide Anion Gap BUN Creatinine Est GFR (CKD-EPI)AfAm Est GFR (CKD-EPI)NonAf POC Glucometer 126 132 Random Glucose Calcium Total Bilirubin AST ALT Alkaline Phosphatase Total Protein Albumin Urine Color Urine Appearance Urine pH Ur Specific [place] Urine Protein Urine Glucose (UA) Urine Ketones Urine Blood Urine Nitrite Urine Bilirubin Urine Urobilinogen Ur Leukocyte Esterase Urine WBC (Auto) Urine RBC (Auto) Urine Casts (Auto) U Epithel Cells (Auto) Urine Bacteria (Auto) POC Urine HCG, Qual RPR Titer HIV 1&2 Antibody Screen Negative HIV P24 Antigen Negative 03/26/19 03/27/19 03/27/19 16:27 05:02 08:39 WBC RBC Hgb Hct MCV MCH MCHC RDW Plt Count MPV Sodium Potassium Chloride Carbon Dioxide Anion Gap BUN Creatinine Est GFR (CKD-EPI)AfAm Est GFR (CKD-EPI)NonAf POC Glucometer 130 107 Random Glucose Calcium Total Bilirubin AST ALT Alkaline Phosphatase Total Protein Albumin Urine Color Yellow Urine Appearance Clear Urine pH 5.5 D Ur Specific [place] 1.018 Urine Protein Negative Urine Glucose (UA) Negative Urine Ketones Negative Urine Blood Negative Urine Nitrite Negative Urine Bilirubin Negative Urine Urobilinogen 0.2 Ur Leukocyte Esterase Trace Urine WBC (Auto) 4 Urine RBC (Auto) 1 Urine Casts (Auto) 2 U Epithel Cells (Auto) 2.9 Urine Bacteria (Auto) 59.2 POC Urine HCG, Qual RPR Titer HIV 1&2 Antibody Screen HIV P24 Antigen 03/27/19 03/28/19 03/28/19 16:31 05:20 07:50 WBC RBC Hgb Hct MCV MCH MCHC RDW Plt Count MPV Sodium 144 Potassium 4.0 Chloride 112 H Carbon Dioxide 25 Anion Gap 7 L BUN 20.2 H Creatinine 0.7 Est GFR (CKD-EPI)AfAm 116.27 Est GFR (CKD-EPI)NonAf 100.32 POC Glucometer 100 103 Random Glucose 106 Calcium 9.2 Total Bilirubin 0.2 AST 14 L ALT 17 Alkaline Phosphatase 99 Total Protein 6.2 L Albumin 2.9 L Urine Color Urine Appearance Urine pH Ur Specific [place] Urine Protein Urine Glucose (UA) Urine Ketones Urine Blood Urine Nitrite Urine Bilirubin Urine Urobilinogen Ur Leukocyte Esterase Urine WBC (Auto) Urine RBC (Auto) Urine Casts (Auto) U Epithel Cells (Auto) Urine Bacteria (Auto) POC Urine HCG, Qual RPR Titer HIV 1&2 Antibody Screen HIV P24 Antigen 03/28/19 03/29/19 16:35 06:17 WBC RBC Hgb Hct MCV MCH MCHC RDW Plt Count MPV Sodium Potassium Chloride Carbon Dioxide Anion Gap BUN Creatinine Est GFR (CKD-EPI)AfAm Est GFR (CKD-EPI)NonAf POC Glucometer 93 122 Random Glucose Calcium Total Bilirubin AST ALT Alkaline Phosphatase Total Protein Albumin Urine Color Urine Appearance Urine pH Ur Specific [place] Urine Protein Urine Glucose (UA) Urine Ketones Urine Blood Urine Nitrite Urine Bilirubin Urine Urobilinogen Ur Leukocyte Esterase Urine WBC (Auto) Urine RBC (Auto) Urine Casts (Auto) U Epithel Cells (Auto) Urine Bacteria (Auto) POC Urine HCG, Qual RPR Titer HIV 1&2 Antibody Screen HIV P24 Antigen aaox3 ambulating no acute distress - Treatment Hospital Course: Detox Protocol Followed, Detoxed Safely, Responded well, Discharged Condition Good, Rehab Referral Accepted Patient has Accepted a Rehab Referral to: pt referral provided - Medication Discharge Medications: Ambulatory Orders Salmeterol/Fluticasone [Advair 250Mcg/50Mcg -] 1 inh PO DAILY 11/08/17 Aspirin [ASA -] 81 mg PO DAILY #30 mg 08/11/18 Albuterol Sulfate Inhaler - [Ventolin HFA Inhaler -] 2 inh PO Q4H PRN #1 inhaler 02/23/19 Lisinopril [Prinivil] 20 mg PO DAILY #30 tablet 02/23/19 metFORMIN HCL [Glucophage -] 500 mg PO DAILY #30 mg 02/23/19 - Diagnosis (1) Cocaine use disorder Current Visit: Yes Status: Chronic (2) Opioid dependence with withdrawal Current Visit: Yes Status: Chronic (3) Osteoarthritis Current Visit: Yes Status: Acute Qualifiers: Osteoarthritis location: multiple joints Osteoarthritis type: primary Qualified Code(s): M15.0 - Primary generalized (osteo)arthritis (4) Substance induced mood disorder Current Visit: Yes Status: Acute (5) Substance-induced sleep disorder Current Visit: Yes Status: Acute (6) Bronchial asthma Current Visit: Yes Status: Chronic Qualifiers: Asthma severity: moderate Asthma persistence: persistent Asthma complication type: with acute exacerbation Qualified Code(s): J45.41 - Moderate persistent asthma with (acute) exacerbation (7) Cocaine dependence Current Visit: Yes Status: Chronic Qualifiers: Complication of substance-induced condition: with unspecified complication (8) DM2 (diabetes mellitus, type 2) Current Visit: Yes Status: Chronic Qualifiers: Diabetes mellitus termite exterminator insulin use: without alf use Chronic kidney disease stage: unspecified stage (9) Hypertension Current Visit: Yes Status: Chronic Qualifiers: Hypertension type: essential hypertension Qualified Code(s): I10 - Essential (primary) hypertension (10) Nicotine dependence Current Visit: Yes Status: Chronic Qualifiers: Nicotine product type: cigarettes Substance use status: uncomplicated Qualified Code(s): F17.210 - Nicotine dependence, cigarettes, uncomplicated (11) Post traumatic stress disorder (PTSD) Current Visit: Yes Status: Chronic (12) Insomnia Current Visit: No Status: Acute (13) Substance induced mood disorder Current Visit: No Status: Acute (14) Substance-induced anxiety disorder Current Visit: No Status: Acute (15) Alcohol dependence with uncomplicated withdrawal Current Visit: Yes Status: Chronic (16) Anxiety and depression Current Visit: No Status: Chronic (17) Bipolar disorder Current Visit: No Status: Chronic (18) Bipolar disorder Current Visit: No Status: Chronic (19) Essential hypertension Current Visit: No Status: Chronic (20) Mood disorder Current Visit: No Status: Suspected (21) Schizophrenia Current Visit: No Status: Suspected (22) Schizoaffective disorder Current Visit: No Status: Ruled-out (23) Schizoaffective disorder Current Visit: No Status: Ruled-out - AMA Did Patient Leave Against Medical Advice: No
[2019-03-29] MEDS: METHYL SALICYLATE/MENTHOL OINT 30 GM TUBE TP SCH (10:46)
[2019-03-29] MEDS: BUDESONIDE/FORMETEROL FUMARATE 160/4.5 mcg INHALER IH SCH (10:46)
[2019-03-29] MEDS: ASPIRIN 81 MG CHEWABLE TABLETS PO SCH (10:46)
[2019-03-29] MEDS: LISINOPRIL 10 MG TABLET (FP) PO SCH (10:47)
[2019-03-29] MEDS: metFORMIN HCL 500 MG TABLET (FP) PO SCH (10:47)
== END 2019-03-29 10:10 | disposition home or self-care (01) | DRG 773 ==
LOC: YASAS 11:46 → Y6N 14:50
PROVIDERS: ADMIT Allergy & Immunology; ATTEND Allergy & Immunology
PROC: HZ2ZZZZ Detoxification Services for Substance Abuse Treatment (ICD-10-PCS; principal; 2019-03-24)
DX: F10.230 Alcohol dependence with withdrawal, uncomplicated (principal); F11.23 Opioid dependence with withdrawal; F14.23 Cocaine dependence with withdrawal; F17.210 Nicotine dependence, cigarettes, uncomplicated; F19.280 Other psychoactive substance dependence with psychoactive substance-induced anxiety disorder; F19.24 Other psychoactive substance dependence with psychoactive substance-induced mood disorder; F19.282 Other psychoactive substance dependence with psychoactive substance-induced sleep disorder; F31.9 Bipolar disorder, unspecified; F20.9 Schizophrenia, unspecified; F43.10 Post-traumatic stress disorder, unspecified; I10 Essential (primary) hypertension; M15.0 Primary generalized (osteo)arthritis; E11.9 Type 2 diabetes mellitus without complications; Z79.84 Long term (current) use of oral hypoglycemic drugs; G62.9 Polyneuropathy, unspecified; R30.0 Dysuria; Z91.5 Personal history of self-harm
CPT/HCPCS: 36415; 80053; 81003; 81025; 82962; 85027; 86593; 87389; 94640

== ENCOUNTER 2019-06-14 09:13 | Inpatient (IN) | payer OTHER ==
--- NOTE | 2019-06-14 09:22 | BHS.RME ---
Substance Use & Tx History - Substance Use History Opiates (Heroin) Substance amount: 3 bundles Frequency of use: Daily Substance route: Inhalation (ex: sniffing or snorting) Date of Last Use: 06/13/19 Cocaine (Crack) Substance amount: 3 bundles Date of Last Use: 06/12/19 - Last Treatment Date of last treatment: 03/24/19 Treatment type: Substance Use Disorder (TIGIST) (detox heroin, alcohol) Where was last treatment: Detox Physical/Psych/Mental Status - Behavior General Behavior: Decreased activity Eye Contact: Normal - Cooperativeness Cooperativeness: Cooperative - Thinking Thought Processes: Tight Thought content: Future oriented - Physical Health Problems Is patient presently having any pain?: No Does patient presently have any injuries (include location): No Does patient currently have a fever: No Is patient : No COWS - Scale Resting Pulse: 1= [place] 81-100 Sweatin= No chills or Flushing Restless Observation: 1= Difficult to Sit Still Pupil Size: 0= Normal to Room Light Bone or Joint Aches: 0= None Runny Nose/ Eye Tearin= Runny Nose/Eyes GI Upset > 30mins: 1= Stomach Cramp Tremor Observation: 0= None Yawning Observation: 0= None Anxiety or Irritability: 2=Irritable/Anxious Goose Flesh Skin: 0=Smooth Skin COWS Score: 7
[2019-06-14 09:55] VITALS: BMI 20.6
--- NOTE | 2019-06-14 11:12 | HP ---
COWS - Scale Resting Pulse: 1= [place] 81-100 Sweatin= No chills or Flushing Restless Observation: 1= Difficult to Sit Still Pupil Size: 0= Normal to Room Light Bone or Joint Aches: 0= None Runny Nose/ Eye Tearin= Runny Nose/Eyes GI Upset > 30mins: 1= Stomach Cramp Tremor Observation: 0= None Yawning Observation: 0= None Anxiety or Irritability: 2=Irritable/Anxious Goose Flesh Skin: 0=Smooth Skin COWS Score: 7 CIWA Score - Admission Criteria OASAS Guidelines: Admission for Medically Managed Detox: Requires at least one of the followin. CIWA greater than 12 2. Seizures within the past 24 hours 3. Delirium tremens within the past 24 hours 4. Hallucinations within the past 24 hours 5. Acute intervention needed for co occurring medical disorder 6. Acute intervention needed for co occurring psychiatric disorder 7. Severe withdrawal that cannot be handled at a lower level of care (continued vomiting, continued diarrhea, abnormal vital signs) requiring intravenous medication and/or fluids 8. Admitting History and Physical - Admission Chief Complaint: Ms. Mariano is a 53 yo woman who presents to [facility] requesing admission to "detox from heroin and crack". History of Present Illness: Ms. Mariano is a 53 yo woman who presents to [facility] requesing admission to "detox from heroin and crack". Last [facility] admission: 03/24/19 to 03/29. PMH: DM, Seizure years ago on no meds, HTN, right sided sciatica PSH: tubal ligation Psych: bipolar on Trazodone and ambien SOC: homeless Legal: no issues Substance use hx Heroin: 3 bundles, sniff, start age 21y, last use yesterday. No hx of OD. No methadone or suboxone program Crack: 3 bundles, smokes, began age 21y, lst use 2 days ago - Past Medical History Cardiovascular: Yes: HTN Pulmonary: Yes: Asthma ...LMP: 06/03/13 ...: No Psych: Yes: Addictions, Bipolar Endocrine: Yes: Other (DM) - Smoking History Smoking history: Current some day smoker Have you smoked in the past 12 months: Yes Aproximately how many cigarettes per day: 5 - Alcohol/Substance Use Hx Alcohol Use: Yes (no dependence) History of Substance Use: reports: Heroin Admission ROS S - HPI Allergies/Adverse Reactions: Allergies Allergy/AdvReac Type Severity Reaction Status Date / Time No Known Drug Allergies Allergy Severe Verified 06/14/19 09:40 Exam Limitations: No Limitations - Ebola screening Have you traveled outside of the country in the last 21 days: No Have you had contact with anyone from an Ebola affected area: No Have you been sick,other than usual withdrawal symptoms: No Do you have a fever: No - Review of Systems Constitutional: No Symptoms Reported EENT: reports: Nose Congestion Respiratory: reports: No Symptoms reported Cardiac: reports: No Symptoms Reported GI: reports: Constipated : reports: No Symptoms Reported Musculoskeletal: reports: Back Pain Neuro: reports: No Symptoms reported Endocrine: reports: No Symptoms Reported Hematology: reports: No Symptoms Reported Psychiatric: reports: Anxious Patient History - Patient Medical History Hx Anemia: No Hx Asthma: Yes Hx Chronic Obstructive Pulmonary Disease (COPD): No Hx Cancer: No Hx Cardiac Disorders: No Hx Congestive Heart Failure: No Hx Hypertension: Yes Hx Hypercholesterolemia: No Hx Pacemaker: No HX Cerebrovascular Accident: No Hx Seizures: No Hx Dementia: No Hx Diabetes: Yes Hx Gastrointestinal Disorders: No Hx Liver Disease: No Hx Genitourinary Disorders: No Hx Sexually Transmitted Disorders: No Hx Renal Disease (ESRD): No Hx Thyroid Disease: No Hx Human Immunodeficiency Virus (HIV): No (2015 last negative) Hx Hepatitis C: No Hx Depression: No Hx Suicide Attempt: No Hx Bipolar Disorder: Yes Hx Schizophrenia: No - Patient Surgical History Past Surgical History: Yes Hx Neurologic Surgery: No Hx Cataract Extraction: No Hx Cardiac Surgery: No Hx Lung Surgery: No Hx Breast Surgery: No Hx Breast Biopsy: No Hx Abdominal Surgery: No Hx Appendectomy: No Hx Cholecystectomy: Yes Hx Genitourinary Surgery: No Hx Section: No Hx Orthopedic Surgery: No Other Surgical History: Tubal ligation 1991 Anesthesia Reaction: No - PPD History Previous Implant?: No Documented Results: Negative w/proof Implanted On Prior R Admission?: No Date: 03/26/19 Results: 0 mm - Reproductive History Last Menstrual Period: 06/03/13 Patient : No - Smoking Cessation Smoking history: Current some day smoker Have you smoked in the past 12 months: Yes Aproximately how many cigarettes per day: 5 Cigars Per Day: 0 Hx Chewing Tobacco Use: No Initiated information on smoking cessation: Yes 'Breaking Loose' booklet given: 06/14/19 - Substances abused Heroin Substance route: Inhalation Frequency: Daily Amount used: 30 bags Age of first use: 21 Date of last use: 06/13/19 Crack Substance route: Smoking Frequency: Daily Amount used: 40 bags Age of first use: 21 Date of last use: 06/13/19 Admission Physical Exam [facility] - Vital Signs Vital Signs: Vital Signs - 24 hr 06/14/19 09:47 Temperature 97.1 F L Pulse Rate 91 H Respiratory 16 Rate Blood Pressure 151/95 - Physical General Appearance: Yes: Thin, Anxious HEENTM: Yes: Hearing grossly Normal, Normocephalic, ISSAC, Other (nose examined at pt complains of right nostril pain, no lesions seen) Respiratory: Yes: Lungs Clear Neck: Yes: Within Normal Limits Breast: Yes: Breast Exam Deferred Cardiology: Yes: Regular Rate, S1, S2 Abdominal: Yes: Non Tender, Flat, Soft, Increased Bowel Sounds Back: Yes: Normal Inspection Musculoskeletal: Yes: Within Normal Limits Extremities: Yes: Within Normal Limits Neurological: Yes: Alert, Normal Response Integumentary: Yes: Within Normal Limits - Diagnostic (1) Bipolar disorder Current Visit: Yes Status: Chronic (2) Cocaine dependence Current Visit: Yes Status: Acute Qualifiers: Complication of substance-induced condition: with unspecified complication (3) DM2 (diabetes mellitus, type 2) Current Visit: No Status: Chronic Qualifiers: Diabetes mellitus half-way insulin use: without half-way use Chronic kidney disease stage: unspecified stage (4) Opioid dependence with withdrawal Current Visit: Yes Status: Acute Cleared for Admission [facility] - Detox or Rehab [facility] Level of Care: Medically Managed Breathalyzer - Breathalyzer Breathalyzer: 0 Urine Drug Screen - Test Device Lot number: [id number] Expiration date: 11/01/20 - Control Is test valid?: Yes - Results Drug screen NEGATIVE: No Urine drug screen results: LOLLY-Cocaine, FEN-Fentanyl, MOP-Opiates Inpatient Rehab Admission - Rehab Decision to Admit Inpatient rehab admission?: No
[2019-06-14] MEDS ORDERED: MAG HYDROX/AL HYDROX/SIMETH 30 ML UNIT-DOSE CUP PO PRN (11:15)
[2019-06-14] MEDS ORDERED: BISMUTH SUBSALICYLATE 262 MG/15 ML BTL PO PRN (11:15)
[2019-06-14] MEDS ORDERED: ONDANSETRON *ODT* 4 MG TABLET SL ONE (11:15)
[2019-06-14] MEDS ORDERED: ACETAMINOPHEN 325 MG TABLET (FP) PO PRN ×2 (11:15)
[2019-06-14] MEDS ORDERED: cloNIDine HCL 0.1 MG TABLET PO PRN (11:15)
[2019-06-14] MEDS ORDERED: MAGNESIUM HYDROX 2400MG/30ML ORAL SUSPENSION 30 ML CUP PO PRN (11:15)
[2019-06-14] MEDS ORDERED: METHADONE HCL 10 MG TABLET (FOR DETOX USE ONLY) PO ONE (11:15)
[2019-06-14] MEDS ORDERED: MENTHOL/PHENOL 1 EACH UD MM PRN (11:15)
[2019-06-14] MEDS ORDERED: IBUPROFEN 400 MG TABLET (FP) PO PRN (11:15)
[2019-06-14] MEDS ORDERED: MAGNESIUM CITRATE 300 ML BOTTLE PO PRN (11:15)
[2019-06-14] MEDS: NICOTINE 21 MG/24 HOURS TOPICAL PATCH TD SCH (12:18)
[2019-06-14] MEDS: metFORMIN HCL 500 MG TABLET (FP) PO SCH (12:18)
[2019-06-14] MEDS: ASPIRIN 81 MG CHEWABLE TABLETS PO SCH (12:18)
[2019-06-14] MEDS: LISINOPRIL 20 MG TABLET (FP) PO SCH (12:18)
[2019-06-14] MEDS: PRENATAL VITAMINS W/ FOLIC ACID TABLET (FP) PO SCH (12:19)
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
[2019-06-14] MEDS: GABAPENTIN 100 MG CAPSULE PO SCH ×2 (14:41→22:27)
[2019-06-14] MEDS: hydrOXYzine PAMOATE 25 MG CAPSULE (FP) PO SCH ×3 (14:41→22:27)
[2019-06-14 15:07] LABS: HEMATOCRIT 43.4 % (32.4-45.2); HEMOGLOBIN 14.5 GM/dL (10.7-15.3); MCH 29.6 pg (25.7-33.7); MCHC 33.5 g/dl (32.0-36.0); MEAN CELL VOLUME 88.4 fl (80-96); MEAN PLT VOLUME 7.7 fl (7.5-11.1); PLATELET COUNT 409 K/MM3 (134-434); RBC 4.91 M/mm3 (3.60-5.2); RDW 13.6 % (11.6-15.6); WHITE BLOOD COUNT 12.9 K/mm3 (4.0-10.0)
[2019-06-14 15:12] LABS: ALBUMIN 3.2 g/dl (3.4-5.0); BILIRUBIN,TOTAL 0.6 mg/dL (0.2-1); CREATININE 0.9 mg/dL (0.55-1.3); POTASSIUM 4.2 mmol/L (3.5-5.1); TOT PROT 7.1 g/dl (6.4-8.2)
[2019-06-14] MEDS: MELATONIN 5 MG TABLETS PO SCH (22:27)
[2019-06-14] MEDS: DOCUSATE SODIUM 100 MG CAPSULE (FP) PO SCH (22:27)
[2019-06-14] MEDS: THIAMINE HCL 100 MG TABLET (FP) PO SCH (22:29)
[2019-06-14] MEDS: SUVOREXANT 10 MG TABLET PO PRN (22:31)
[2019-06-15] MEDS: GABAPENTIN 100 MG CAPSULE PO SCH ×3 (05:33→22:14)
[2019-06-15] MEDS: hydrOXYzine PAMOATE 25 MG CAPSULE (FP) PO SCH ×5 (05:33→22:19)
[2019-06-15] MEDS: metFORMIN HCL 500 MG TABLET (FP) PO SCH (06:30)
--- NOTE | 2019-06-15 09:39 | PN ---
[facility] COWS - Scale Resting Pulse: 1= [place] 81-100 Sweatin= Chills/Flushing Restless Observation: 1= Difficult to Sit Still Pupil Size: 0= Normal to Room Light Bone or Joint Aches: 1= Mild Discomfort Runny Nose/ Eye Tearin= Nasal Congestion GI Upset > 30mins: 1= Stomach Cramp Tremor Observation of Outstretched Hands: 1= Tremor [place], Not Seen Yawning Observation: 1= 1-2x During Session S Progress Note (SOAP) Subjective: pt c/o of nasal congestion- from heroin use- requesting ocean spray, states she has not had a BM in several days- requesting citroma, also c/o dry cough at night. Pt came in yesterday for heroin detox O: Vital Signs - 24 hr 06/14/19 06/14/19 06/14/19 09:47 12:00 12:38 Temperature 97.1 F L 98.8 F 98.4 F Pulse Rate 91 H 105 H 73 Respiratory 16 18 18 Rate Blood Pressure 151/95 140/84 126/77 06/14/19 06/14/19 06/15/19 16:39 20:36 00:36 Temperature 97.7 F 99.1 F Pulse Rate 81 84 Respiratory 16 18 18 Rate Blood Pressure 103/71 94/62 06/15/19 06/15/19 06/15/19 03:30 06:48 08:43 Temperature 97.4 F L 98.8 F Pulse Rate 90 100 H Respiratory 16 18 18 Rate Blood Pressure 126/77 100/56 L Laboratory Tests 06/14/19 06/14/19 06/14/19 11:17 12:00 12:00 WBC 12.9 H RBC 4.91 Hgb 14.5 Hct 43.4 MCV 88.4 MCH 29.6 MCHC 33.5 RDW 13.6 Plt Count 409 D MPV 7.7 Sodium 141 Potassium 4.2 Chloride 104 Carbon Dioxide 30 Anion Gap 7 L BUN 17.0 Creatinine 0.9 Est GFR (CKD-EPI)AfAm 85.80 Est GFR (CKD-EPI)NonAf 74.03 POC Glucometer 218 Random Glucose 169 H Calcium 9.0 Total Bilirubin 0.6 AST 65 H ALT 37 Alkaline Phosphatase 144 H Total Protein 7.1 Albumin 3.2 L RPR Titer 06/14/19 06/14/1906/14/20 12:00 16:35 06:39 WBC RBC Hgb Hct MCV MCH MCHC RDW Plt Count MPV Sodium Potassium Chloride Carbon Dioxide Anion Gap BUN Creatinine Est GFR (CKD-EPI)AfAm Est GFR (CKD-EPI)NonAf POC Glucometer 99 112 Random Glucose Calcium Total Bilirubin AST ALT Alkaline Phosphatase Total Protein Albumin RPR Titer Nonreactive AST- mildly elevated a/p OUD- continue detox protocol pt should get long chain beamer MAT Pump Back spray ordered, encouraged fluid intake for dry cough, pt has prn citroma for constipation
[2019-06-15] MEDS ORDERED: METHADONE HCL 10 MG TABLET (FOR DETOX USE ONLY) ONE (09:50)
[2019-06-15] MEDS ORDERED: METHADONE HCL 5 MG TABLET (FOR DETOX USE ONLY) ONE (09:51)
[2019-06-15] MEDS ORDERED: METHADONE (DETOX) 20 MG, METHADONE (DETOX) 5 MG PO ONE (10:00)
[2019-06-15] MEDS: LISINOPRIL 20 MG TABLET (FP) PO SCH (10:32)
[2019-06-15] MEDS: PRENATAL VITAMINS W/ FOLIC ACID TABLET (FP) PO SCH (10:32)
[2019-06-15] MEDS: ASPIRIN 81 MG CHEWABLE TABLETS PO SCH (10:33)
[2019-06-15] MEDS: NICOTINE 21 MG/24 HOURS TOPICAL PATCH TD SCH (10:33)
[2019-06-15] MEDS: SODIUM CHLORIDE NASAL SPRAY 44 ML BOTTLE NS PRN ×2 (10:40→20:04)
[2019-06-15] MEDS ORDERED: guaiFENesin 200 MG/10 ML 10 ML UNIT-DOSE CUPS PO PRN (12:56)
[2019-06-15] MEDS: ALBUTEROL SO4 HFA INHALER IH PRN (13:11)
[2019-06-15] MEDS: DOCUSATE SODIUM 100 MG CAPSULE (FP) PO SCH (22:13)
[2019-06-15] MEDS: THIAMINE HCL 100 MG TABLET (FP) PO SCH (22:14)
[2019-06-15] MEDS: SUVOREXANT 10 MG TABLET PO PRN (22:17)
[2019-06-15] MEDS: MELATONIN 5 MG TABLETS PO SCH (22:54)
[2019-06-16] MEDS: SODIUM CHLORIDE NASAL SPRAY 44 ML BOTTLE NS PRN ×4 (02:10→22:28)
[2019-06-16] MEDS: METHOCARBAMOL 500 MG TABLET PO PRN ×2 (02:15→10:07)
[2019-06-16] MEDS: GABAPENTIN 100 MG CAPSULE PO SCH ×3 (05:07→22:26)
[2019-06-16] MEDS: hydrOXYzine PAMOATE 25 MG CAPSULE (FP) PO SCH ×5 (05:07→22:26)
[2019-06-16] MEDS: metFORMIN HCL 500 MG TABLET (FP) PO SCH (06:02)
[2019-06-16] MEDS ORDERED: METHADONE HCL 10 MG TABLET (FOR DETOX USE ONLY) PO ONE (10:00)
[2019-06-16] MEDS: ALBUTEROL SO4 HFA INHALER IH PRN ×2 (10:06→22:28)
[2019-06-16] MEDS: LISINOPRIL 20 MG TABLET (FP) PO SCH (10:07)
[2019-06-16] MEDS: ASPIRIN 81 MG CHEWABLE TABLETS PO SCH (10:07)
[2019-06-16] MEDS: PRENATAL VITAMINS W/ FOLIC ACID TABLET (FP) PO SCH (10:07)
[2019-06-16] MEDS: NICOTINE 21 MG/24 HOURS TOPICAL PATCH TD SCH (10:09)
--- NOTE | 2019-06-16 12:30 | PN ---
S COWS - Scale Resting Pulse: 0= [place] 80 or Below Sweatin= Chills/Flushing Restless Observation: 1= Difficult to Sit Still Pupil Size: 0= Normal to Room Light Bone or Joint Aches: 2= Severe Diffuse Aches Runny Nose/ Eye Tearin= None GI Upset > 30mins: 0= None Tremor Observation of Outstretched Hands: 0= None Yawning Observation: 2= >3x During Session Anxiety or Irritability: 2=Irritable/Anxious Goose Flesh Skin: 0=Smooth Skin COWS Score: 8 S Progress Note (SOAP) Subjective: c/o chills, muscle aches, and anxiety. Objective: 06/16/19 12:28 Vital Signs 06/16/19 06/16/19 08:03 08:33 Temperature 97.4 F L 97.7 F Pulse Rate 82 94 H Respiratory 16 18 Rate Blood Pressure 139/95 131/76 Laboratory Last Values WBC 12.9 K/mm3 (4.0-10.0) H 06/14/19 12:00 RBC 4.91 M/mm3 (3.60-5.2) 06/14/19 12:00 Hgb 14.5 GM/dL (10.7-15.3) 06/14/19 12:00 Hct 43.4 % (32.4-45.2) 06/14/19 12:00 MCV 88.4 fl (80-96) 06/14/19 12:00 MCH 29.6 pg (25.7-33.7) 06/14/19 12:00 MCHC 33.5 g/dl (32.0-36.0) 06/14/19 12:00 RDW 13.6 % (11.6-15.6) 06/14/19 12:00 Plt Count 409 K/MM3 (134-434) D 06/14/19 12:00 MPV 7.7 fl (7.5-11.1) 06/14/19 12:00 Sodium 141 mmol/L (136-145) 06/14/19 12:00 Potassium 4.2 mmol/L (3.5-5.1) 06/14/19 12:00 Chloride 104 mmol/L (98-107) 06/14/19 12:00 Carbon Dioxide 30 mmol/L (21-32) 06/14/19 12:00 Anion Gap 7 MMOL/L (8-16) L 06/14/19 12:00 BUN 17.0 mg/dL (7-18) 06/14/19 12:00 Creatinine 0.9 mg/dL (0.55-1.3) 06/14/19 12:00 Est GFR (CKD-EPI)AfAm 85.80 06/14/19 12:00 Est GFR (CKD-EPI)NonAf 74.03 06/14/19 12:00 POC Glucometer 90 UNITS (80-120) 06/16/19 05:06 Random Glucose 169 mg/dL (74-106) H 06/14/19 12:00 Calcium 9.0 mg/dL (8.5-10.1) 06/14/19 12:00 Total Bilirubin 0.6 mg/dL (0.2-1) 06/14/19 12:00 AST 65 U/L (15-37) H 06/14/19 12:00 ALT 37 U/L (13-61) 06/14/19 12:00 Alkaline Phosphatase 144 U/L (45-117) H 06/14/19 12:00 Total Protein 7.1 g/dl (6.4-8.2) 06/14/19 12:00 Albumin 3.2 g/dl (3.4-5.0) L 06/14/19 12:00 RPR Titer Nonreactive (NONREACTIVE) 06/14/19 12:00 Labs noted. Assessment: 06/16/19 12:28 AOX3, in no acute respiratory distress. Full ROM, ambulating in the unit. Withdrawal symptoms. Plan: continue detox.
[2019-06-16] MEDS: MELATONIN 5 MG TABLETS PO SCH (22:26)
[2019-06-16] MEDS: DOCUSATE SODIUM 100 MG CAPSULE (FP) PO SCH (22:26)
[2019-06-16] MEDS: THIAMINE HCL 100 MG TABLET (FP) PO SCH (22:26)
[2019-06-17] MEDS: hydrOXYzine PAMOATE 25 MG CAPSULE (FP) PO SCH ×5 (06:11→22:16)
[2019-06-17] MEDS: GABAPENTIN 100 MG CAPSULE PO SCH ×3 (06:11→22:16)
[2019-06-17] MEDS: metFORMIN HCL 500 MG TABLET (FP) PO SCH (06:11)
[2019-06-17] MEDS: NICOTINE POLACRILEX 2 MG GUM BUC PRN ×2 (06:15→10:13)
[2019-06-17] MEDS: SODIUM CHLORIDE NASAL SPRAY 44 ML BOTTLE NS PRN ×4 (06:15→22:19)
[2019-06-17] MEDS: ALBUTEROL SO4 HFA INHALER IH PRN ×4 (06:16→22:19)
[2019-06-17] MEDS ORDERED: METHADONE HCL 10 MG TABLET (FOR DETOX USE ONLY) ONE (09:15)
[2019-06-17] MEDS ORDERED: METHADONE HCL 5 MG TABLET (FOR DETOX USE ONLY) ONE (09:15)
[2019-06-17] MEDS ORDERED: METHADONE (DETOX) 10 MG, METHADONE (DETOX) 5 MG PO ONE (10:00)
[2019-06-17] MEDS: LISINOPRIL 20 MG TABLET (FP) PO SCH (10:11)
[2019-06-17] MEDS: PRENATAL VITAMINS W/ FOLIC ACID TABLET (FP) PO SCH (10:12)
[2019-06-17] MEDS: NICOTINE 21 MG/24 HOURS TOPICAL PATCH TD SCH (10:12)
[2019-06-17] MEDS: ASPIRIN 81 MG CHEWABLE TABLETS PO SCH (10:12)
[2019-06-17] MEDS ORDERED: SODIUM PHOSPHATE/NA BIPHOS 133 ML ENEMA RC ONE (10:30)
--- NOTE | 2019-06-17 10:31 | PN ---
[facility] COWS - Scale Resting Pulse: 1= [place] 81-100 Sweatin= No chills or Flushing Restless Observation: 0= Sits Still Pupil Size: 0= Normal to Room Light Bone or Joint Aches: 0= None Runny Nose/ Eye Tearin= Nasal Congestion GI Upset > 30mins: 1= Stomach Cramp Tremor Observation of Outstretched Hands: 1= Tremor [place], Not Seen Yawning Observation: 0= None Anxiety or Irritability: 2=Irritable/Anxious Goose Flesh Skin: 0=Smooth Skin COWS Score: 6 BHS Progress Note (SOAP) Subjective: 53 years old female admitted on 06/14/19 for opiate withdrawal sx management treating with methadone detox regiment reports small hard stool mild release from MOM and Citroma fleet enema x 1 senna 2 tabs po hs Objective: 06/17/19 10:36 Vital Signs Temperature 98.5 F 06/17/19 08:40 Pulse Rate 90 06/17/19 08:40 Respiratory Rate 18 06/17/19 08:40 Blood Pressure 139/86 06/17/19 08:40 O2 Sat by Pulse Oximetry (%) Laboratory Last Values WBC 12.9 K/mm3 (4.0-10.0) H 06/14/19 12:00 RBC 4.91 M/mm3 (3.60-5.2) 06/14/19 12:00 Hgb 14.5 GM/dL (10.7-15.3) 06/14/19 12:00 Hct 43.4 % (32.4-45.2) 06/14/19 12:00 MCV 88.4 fl (80-96) 06/14/19 12:00 MCH 29.6 pg (25.7-33.7) 06/14/19 12:00 MCHC 33.5 g/dl (32.0-36.0) 06/14/19 12:00 RDW 13.6 % (11.6-15.6) 06/14/19 12:00 Plt Count 409 K/MM3 (134-434) D 06/14/19 12:00 MPV 7.7 fl (7.5-11.1) 06/14/19 12:00 Sodium 141 mmol/L (136-145) 06/14/19 12:00 Potassium 4.2 mmol/L (3.5-5.1) 06/14/19 12:00 Chloride 104 mmol/L (98-107) 06/14/19 12:00 Carbon Dioxide 30 mmol/L (21-32) 06/14/19 12:00 Anion Gap 7 MMOL/L (8-16) L 06/14/19 12:00 BUN 17.0 mg/dL (7-18) 06/14/19 12:00 Creatinine 0.9 mg/dL (0.55-1.3) 06/14/19 12:00 Est GFR (CKD-EPI)AfAm 85.80 06/14/19 12:00 Est GFR (CKD-EPI)NonAf 74.03 06/14/19 12:00 POC Glucometer 107 UNITS (80-120) 06/17/19 06:13 Random Glucose 169 mg/dL (74-106) H 06/14/19 12:00 Calcium 9.0 mg/dL (8.5-10.1) 06/14/19 12:00 Total Bilirubin 0.6 mg/dL (0.2-1) 06/14/19 12:00 AST 65 U/L (15-37) H 06/14/19 12:00 ALT 37 U/L (13-61) 06/14/19 12:00 Alkaline Phosphatase 144 U/L (45-117) H 06/14/19 12:00 Total Protein 7.1 g/dl (6.4-8.2) 06/14/19 12:00 Albumin 3.2 g/dl (3.4-5.0) L 06/14/19 12:00 RPR Titer Nonreactive (NONREACTIVE) 06/14/19 12:00 lab noted 06/17/19 10:37 long history of diabetes II treated with metformin Assessment: 06/17/19 10:40 opiate withdrawal Plan: methadone regiment
[2019-06-17] MEDS: BACITRACIN 0.9 GM PACKET TP SCH ×2 (13:42→22:15)
[2019-06-17] MEDS: LIDOCAINE 5% TOPICAL PATCH TP SCH (13:44)
[2019-06-17] MEDS: METHYL SALICYLATE/MENTHOL OINT 30 GM TUBE TP SCH ×2 (14:37→22:15)
[2019-06-17] MEDS: LIDOCAINE PATCH REMOVAL MC SCH (22:15)
[2019-06-17] MEDS: MELATONIN 5 MG TABLETS PO SCH (22:16)
[2019-06-17] MEDS: THIAMINE HCL 100 MG TABLET (FP) PO SCH (22:16)
[2019-06-17] MEDS: SENNOSIDES 8.6MG TABLET (FP) PO SCH (22:16)
[2019-06-17] MEDS: DOCUSATE SODIUM 100 MG CAPSULE (FP) PO SCH (22:16)
[2019-06-18] MEDS: GABAPENTIN 100 MG CAPSULE PO SCH ×3 (06:02→22:20)
[2019-06-18] MEDS: SODIUM CHLORIDE NASAL SPRAY 44 ML BOTTLE NS PRN ×3 (06:03→13:37)
[2019-06-18] MEDS: NICOTINE POLACRILEX 2 MG GUM BUC PRN (06:04)
[2019-06-18] MEDS: BACITRACIN 0.9 GM PACKET TP SCH ×3 (06:06→22:20)
[2019-06-18] MEDS: metFORMIN HCL 500 MG TABLET (FP) PO SCH (06:26)
[2019-06-18] MEDS: hydrOXYzine PAMOATE 25 MG CAPSULE (FP) PO SCH ×5 (06:27→22:20)
[2019-06-18] MEDS ORDERED: METHADONE HCL 10 MG TABLET (FOR DETOX USE ONLY) PO ONE (10:00)
[2019-06-18] MEDS: METHYL SALICYLATE/MENTHOL OINT 30 GM TUBE TP SCH ×2 (10:54→22:32)
[2019-06-18] MEDS: LISINOPRIL 20 MG TABLET (FP) PO SCH (10:55)
[2019-06-18] MEDS: ASPIRIN 81 MG CHEWABLE TABLETS PO SCH (10:55)
[2019-06-18] MEDS: PRENATAL VITAMINS W/ FOLIC ACID TABLET (FP) PO SCH (10:55)
[2019-06-18] MEDS: ALBUTEROL SO4 HFA INHALER IH PRN (10:56)
[2019-06-18] MEDS: NICOTINE 21 MG/24 HOURS TOPICAL PATCH TD SCH (10:56)
[2019-06-18] MEDS: LIDOCAINE 5% TOPICAL PATCH TP SCH (10:57)
[2019-06-18] MEDS: METHOCARBAMOL 500 MG TABLET PO PRN ×2 (13:38→19:48)
[2019-06-18] MEDS ORDERED: PSYLLIUM 5.85 GM PACKET PO PRN (15:08)
[2019-06-18] MEDS ORDERED: COLLOIDAL OATMEAL 1 BAR EACH TP PRN (15:09)
--- NOTE | 2019-06-18 15:14 | PN ---
BHS COWS - Scale Resting Pulse: 1= [place] 81-100 Sweatin= No chills or Flushing Restless Observation: 0= Sits Still Pupil Size: 0= Normal to Room Light Bone or Joint Aches: 0= None Runny Nose/ Eye Tearin= Nasal Congestion GI Upset > 30mins: 0= None Tremor Observation of Outstretched Hands: 0= None Yawning Observation: 0= None Anxiety or Irritability: 1=Feels Anxious/Irritable Goose Flesh Skin: 0=Smooth Skin COWS Score: 3 BHS Progress Note (SOAP) Subjective: 53 years old male admitted on 06/14/19 for opiate withdrawal sx management treating with methadone detox regiment feeling better today requests GI regulator metamucil prn reports ocean spray not working discontinue ocean begin flonase requests soap aveeno soap ordered Objective: 06/18/19 15:13 Vital Signs Temperature 97.0 F L 06/18/19 12:41 Pulse Rate 99 H 06/18/19 12:41 Respiratory Rate 16 06/18/19 12:41 Blood Pressure 119/72 06/18/19 12:41 O2 Sat by Pulse Oximetry (%) Laboratory Last Values WBC 12.9 K/mm3 (4.0-10.0) H 06/14/19 12:00 RBC 4.91 M/mm3 (3.60-5.2) 06/14/19 12:00 Hgb 14.5 GM/dL (10.7-15.3) 06/14/19 12:00 Hct 43.4 % (32.4-45.2) 06/14/19 12:00 MCV 88.4 fl (80-96) 06/14/19 12:00 MCH 29.6 pg (25.7-33.7) 06/14/19 12:00 MCHC 33.5 g/dl (32.0-36.0) 06/14/19 12:00 RDW 13.6 % (11.6-15.6) 06/14/19 12:00 Plt Count 409 K/MM3 (134-434) D 06/14/19 12:00 MPV 7.7 fl (7.5-11.1) 06/14/19 12:00 Sodium 141 mmol/L (136-145) 06/14/19 12:00 Potassium 4.2 mmol/L (3.5-5.1) 06/14/19 12:00 Chloride 104 mmol/L (98-107) 06/14/19 12:00 Carbon Dioxide 30 mmol/L (21-32) 06/14/19 12:00 Anion Gap 7 MMOL/L (8-16) L 06/14/19 12:00 BUN 17.0 mg/dL (7-18) 06/14/19 12:00 Creatinine 0.9 mg/dL (0.55-1.3) 06/14/19 12:00 Est GFR (CKD-EPI)AfAm 85.80 06/14/19 12:00 Est GFR (CKD-EPI)NonAf 74.03 06/14/19 12:00 POC Glucometer 119 UNITS (80-120) 06/18/19 06:01 Random Glucose 169 mg/dL (74-106) H 06/14/19 12:00 Calcium 9.0 mg/dL (8.5-10.1) 06/14/19 12:00 Total Bilirubin 0.6 mg/dL (0.2-1) 06/14/19 12:00 AST 65 U/L (15-37) H 06/14/19 12:00 ALT 37 U/L (13-61) 06/14/19 12:00 Alkaline Phosphatase 144 U/L (45-117) H 06/14/19 12:00 Total Protein 7.1 g/dl (6.4-8.2) 06/14/19 12:00 Albumin 3.2 g/dl (3.4-5.0) L 06/14/19 12:00 RPR Titer Nonreactive (NONREACTIVE) 06/14/19 12:00 lab noted long history of diabetes Assessment: 06/18/19 15:13 opiate withdrawal Plan: methadone regiment
[2019-06-18] MEDS ORDERED: MELATONIN 5 MG TABLETS PO PRN (15:24)
[2019-06-18] MEDS: FLUTICASONE PROP 0.05% 16 GM NASAL SPRAY NS PRN (17:13)
--- NOTE | 2019-06-18 17:48 | PN ---
S Progress Note Note: c/o whitish vaginal discharge and some lower bladder pressure discomfort x 1 day. Denies burning or blood w/ urination. Abd soft, non-tender. No vaginal discharge noted. No increased erythema, perianal or labial swelling noted. Hx: DM Vital Signs 06/18/19 06/18/19 12:41 16:35 Temperature 97.0 F L 98.5 F Pulse Rate 99 H 93 H Respiratory 16 16 Rate Blood Pressure 119/72 115/68 Plan: Diflucan 150 mg PO once. Acidophylus 2 tabs PO BID x 5 doses. U/A Encouraged increased water intake and decreased milk intake.
[2019-06-18] MEDS ORDERED: FLUCONAZOLE 50 MG TABLET PO ONE (18:00)
[2019-06-18] MEDS ORDERED: FLUCONAZOLE 150 MG TABLET PO ONE (19:30)
[2019-06-18] MEDS: LACTOBACILLUS ACIDOPHILUS 1 TABLET PO SCH (21:28)
[2019-06-18] MEDS: LIDOCAINE PATCH REMOVAL MC SCH (22:20)
[2019-06-18] MEDS: DOCUSATE SODIUM 100 MG CAPSULE (FP) PO SCH (22:20)
[2019-06-18] MEDS: THIAMINE HCL 100 MG TABLET (FP) PO SCH (22:21)
[2019-06-18] MEDS: SENNOSIDES 8.6MG TABLET (FP) PO SCH (22:23)
[2019-06-18 22:54] LABS: EPI CELLS 11 /HPF (0-5/HPF); HYALINE CASTS 0 /lpf (0-8); URINE APPEARANCE CLEAR; URINE BACTERIA 539 /hpf (NEGATIVE); URINE BILIRUBIN NEGATIVE (NEGATIVE); URINE COLOR YELLOW; URINE GLUCOSE (UA) NEGATIVE (NEGATIVE); URINE KETONE NEGATIVE (NEGATIVE); URINE LEUK ESTERASE 1+ (NEGATIVE); URINE NITRITE NEGATIVE (NEGATIVE); URINE PROTEIN NEGATIVE (NEGATIVE); URINE RBC 4 /hpf (0-4); URINE UROBILINOGEN 0.2 mg/dL (0.2-1.0); URINE WBC 52 /hpf (0-5)
[2019-06-19] MEDS: FLUTICASONE PROP 0.05% 16 GM NASAL SPRAY NS PRN (02:08)
[2019-06-19] MEDS: METHOCARBAMOL 500 MG TABLET PO PRN (02:08)
[2019-06-19] MEDS: GABAPENTIN 100 MG CAPSULE PO SCH (05:19)
[2019-06-19] MEDS: hydrOXYzine PAMOATE 25 MG CAPSULE (FP) PO SCH (05:19)
[2019-06-19] MEDS ORDERED: METHADONE HCL 5 MG TABLET (FOR DETOX USE ONLY) PO ONE (06:00)
[2019-06-19] MEDS: metFORMIN HCL 500 MG TABLET (FP) PO SCH (06:05)
[2019-06-19] MEDS: BACITRACIN 0.9 GM PACKET TP SCH (06:07)
[2019-06-19 06:37] VITALS: BP 125/78; PULSE 87; TEMP 97.7
[2019-06-19] MEDS: LACTOBACILLUS ACIDOPHILUS 1 TABLET PO SCH (09:37)
--- NOTE | 2019-06-19 12:54 | DS ---
[facility] Detox Discharge Summary Admission Date: 06/14/19 Discharge Date: 06/19/19 - History Present History: Opioid Dependence Additional Comments: 53 years old female admitted on 06/14/19 for opiate withdrawal sx management treated with methadone detox regiment Ms Mariano has completed the detox regiment and is tolerated well [facility] evening received diflucan x 1 alert oriented x 3 respiratory clear lungs bilaterally on auscultation extremities full range of motion skin warm and dry Pertinent Past History: time for discharge 33 minutes - Physical Exam Results Vital Signs: Vital Signs Temperature 97.7 F 06/19/19 06:36 Pulse Rate 87 06/19/19 06:36 Respiratory Rate 18 06/19/19 06:55 Blood Pressure 125/78 06/19/19 06:36 O2 Sat by Pulse Oximetry (%) Pertinent Admission Physical Exam Findings: opiate withdrawal Vital Signs Temperature 97.7 F 06/19/19 06:36 Pulse Rate 87 06/19/19 06:36 Respiratory Rate 18 06/19/19 06:55 Blood Pressure 125/78 06/19/19 06:36 O2 Sat by Pulse Oximetry (%) Laboratory Last Values WBC 12.9 K/mm3 (4.0-10.0) H 06/14/19 12:00 RBC 4.91 M/mm3 (3.60-5.2) 06/14/19 12:00 Hgb 14.5 GM/dL (10.7-15.3) 06/14/19 12:00 Hct 43.4 % (32.4-45.2) 06/14/19 12:00 MCV 88.4 fl (80-96) 06/14/19 12:00 MCH 29.6 pg (25.7-33.7) 06/14/19 12:00 MCHC 33.5 g/dl (32.0-36.0) 06/14/19 12:00 RDW 13.6 % (11.6-15.6) 06/14/19 12:00 Plt Count 409 K/MM3 (134-434) D 06/14/19 12:00 MPV 7.7 fl (7.5-11.1) 06/14/19 12:00 Sodium 141 mmol/L (136-145) 06/14/19 12:00 Potassium 4.2 mmol/L (3.5-5.1) 06/14/19 12:00 Chloride 104 mmol/L (98-107) 06/14/19 12:00 Carbon Dioxide 30 mmol/L (21-32) 06/14/19 12:00 Anion Gap 7 MMOL/L (8-16) L 06/14/19 12:00 BUN 17.0 mg/dL (7-18) 06/14/19 12:00 Creatinine 0.9 mg/dL (0.55-1.3) 06/14/19 12:00 Est GFR (CKD-EPI)AfAm 85.80 06/14/19 12:00 Est GFR (CKD-EPI)NonAf 74.03 06/14/19 12:00 POC Glucometer 140 UNITS (80-120) 06/19/19 05:24 Random Glucose 169 mg/dL (74-106) H 06/14/19 12:00 Calcium 9.0 mg/dL (8.5-10.1) 06/14/19 12:00 Total Bilirubin 0.6 mg/dL (0.2-1) 06/14/19 12:00 AST 65 U/L (15-37) H 06/14/19 12:00 ALT 37 U/L (13-61) 06/14/19 12:00 Alkaline Phosphatase 144 U/L (45-117) H 06/14/19 12:00 Total Protein 7.1 g/dl (6.4-8.2) 06/14/19 12:00 Albumin 3.2 g/dl (3.4-5.0) L 06/14/19 12:00 Urine Color Yellow 06/18/19 18:33 Urine Appearance Clear 06/18/19 18:33 Urine pH 6.0 (5.0-8.0) 06/18/19 18:33 Ur Specific [place] 1.012 (1.010-1.035) 06/18/19 18:33 Urine Protein Negative (NEGATIVE) 06/18/19 18:33 Urine Glucose (UA) Negative (NEGATIVE) 06/18/19 18:33 Urine Ketones Negative (NEGATIVE) 06/18/19 18:33 Urine Blood Negative (NEGATIVE) 06/18/19 18:33 Urine Nitrite Negative (NEGATIVE) 06/18/19 18:33 Urine Bilirubin Negative (NEGATIVE) 06/18/19 18:33 Urine Urobilinogen 0.2 mg/dL (0.2-1.0) 06/18/19 18:33 Ur Leukocyte Esterase 1+ (NEGATIVE) H 06/18/19 18:33 Urine WBC (Auto) 52 /hpf (0-5) 06/18/19 18:33 Urine RBC (Auto) 4 /hpf (0-4) 06/18/19 18:33 Urine Casts (Auto) 0 /lpf (0-8) 06/18/19 18:33 U Epithel Cells (Auto) 11 /HPF (0-5/HPF) 06/18/19 18:33 Urine Bacteria (Auto) 539 /hpf (NEGATIVE) 06/18/19 18:33 RPR Titer Nonreactive (NONREACTIVE) 06/14/19 12:00 lab noted long history of diabetes - Treatment Hospital Course: Detox Protocol Followed, Detoxed Safely, Responded well, Discharged Condition Good, Rehab Referral Accepted Patient has Accepted a Rehab Referral to: [facility] - Medication Discharge Medications: Ambulatory Orders Salmeterol/Fluticasone [Advair 250Mcg/50Mcg -] 1 inh PO DAILY 11/08/17 Aspirin [ASA -] 81 mg PO DAILY #30 mg 08/11/18 Albuterol Sulfate Inhaler - [Ventolin HFA Inhaler -] 2 inh PO Q4H PRN #1 inhaler 02/23/19 Lisinopril [Prinivil] 20 mg PO DAILY #30 tablet 02/23/19 metFORMIN HCL [Glucophage -] 500 mg PO DAILY #30 mg 02/23/19 Gabapentin [Neurontin -] 100 mg PO TID 06/14/19 - Diagnosis (1) Opioid dependence with withdrawal Status: Acute (2) Substance induced mood disorder Status: Suspected (3) Hypertension Status: Chronic Qualifiers: Hypertension type: essential hypertension Qualified Code(s): I10 - Essential (primary) hypertension (4) Nicotine dependence Status: Acute Qualifiers: Nicotine product type: cigarettes Substance use status: in withdrawal Qualified Code(s): F17.213 - Nicotine dependence, cigarettes, with withdrawal (5) Diabetes mellitus type II, controlled Status: Chronic Qualifiers: Diabetes mellitus mcfp insulin use: without mcfp use Diabetes mellitus complication status: without complication Qualified Code(s): E11.9 - Type 2 diabetes mellitus without complications - AMA Did Patient Leave Against Medical Advice: No COWS (PN) - Opiate Withdrawal Resting Pulse: 0= [place] 80 or Below Sweatin= No chills or Flushing Restless Observation: 0= Sits Still Pupil Size: 0= Normal to Room Light Bone or Joint Aches: 0= None Runny Nose/ Eye Tearin= None GI Upset > 30mins: 0= None Tremor Observation of Outstretched Hands: 0= None Yawning Observation: 0= None Anxiety or Irritability: 1=Feels Anxious/Irritable Goose Flesh Skin: 0=Smooth Skin COWS Score: 1
== END 2019-06-19 09:02 | disposition home or self-care (01) | DRG 773 ==
LOC: YASAS 09:13 → Y3N 11:21
PROVIDERS: ADMIT Allergy & Immunology; ATTEND Allergy & Immunology
PROC: HZ2ZZZZ Detoxification Services for Substance Abuse Treatment (ICD-10-PCS; principal; 2019-06-14)
DX: F11.23 Opioid dependence with withdrawal (principal); F14.20 Cocaine dependence, uncomplicated; F17.210 Nicotine dependence, cigarettes, uncomplicated; F19.282 Other psychoactive substance dependence with psychoactive substance-induced sleep disorder; F31.9 Bipolar disorder, unspecified; F43.10 Post-traumatic stress disorder, unspecified; I10 Essential (primary) hypertension; E11.9 Type 2 diabetes mellitus without complications; Z79.84 Long term (current) use of oral hypoglycemic drugs; J45.909 Unspecified asthma, uncomplicated; R05 Cough; K59.00 Constipation, unspecified; N89.8 Other specified noninflammatory disorders of vagina; Z62.810 Personal history of physical and sexual abuse in childhood; Z91.410 Personal history of adult physical and sexual abuse; Z86.69 Personal history of other diseases of the nervous system and sense organs; Z86.19 Personal history of other infectious and parasitic diseases; Z98.51 Tubal ligation status; Z56.0 Unemployment, unspecified; Z59.0 Homelessness
CPT/HCPCS: 36415; 80053; 81003; 82962; 85027; 86593; J0735; Q0162

== ENCOUNTER 2020-08-12 08:24 | Inpatient (IN) | payer OTHER ==
[2020-08-12 09:28] VITALS: BMI 28.8
[2020-08-12] MEDS ORDERED: ACETAMINOPHEN 325 MG TABLET (FP) PO PRN (09:43)
[2020-08-12] MEDS ORDERED: MENTHOL/PHENOL 1 EACH UD MM PRN (09:43)
[2020-08-12] MEDS ORDERED: MAG HYDROX/AL HYDROX/SIMETH 30 ML UNIT-DOSE CUP PO PRN (09:43)
[2020-08-12] MEDS ORDERED: BISMUTH SUBSALICYLATE 524 MG/30 ML UD PO PRN (09:43)
[2020-08-12] MEDS ORDERED: cloNIDine HCL 0.1 MG TABLET PO PRN (09:43)
[2020-08-12] MEDS ORDERED: MAGNESIUM CITRATE 300 ML BOTTLE PO PRN (09:43)
[2020-08-12] MEDS ORDERED: NICOTINE POLACRILEX 2 MG GUM BUC PRN (09:43)
[2020-08-12] MEDS ORDERED: ONDANSETRON *ODT* 4 MG TABLET SL PRN (09:43)
[2020-08-12] MEDS ORDERED: ALBUTEROL SO4 HFA INHALER IH PRN (09:47)
[2020-08-12] MEDS: INSULIN (NOVOLOG) ASPART 100 UNITS/ML 10ML VIAL SQ SCH ×2 (11:04→16:54)
[2020-08-12] MEDS ORDERED: METHADONE HCL 10 MG TABLET (FOR DETOX USE ONLY) PO ONE (11:15)
[2020-08-12] MEDS: LISINOPRIL 20 MG TABLET PO SCH (11:19)
[2020-08-12] MEDS: hydrOXYzine PAMOATE 25 MG CAPSULE (FP) PO SCH ×4 (11:19→22:50)
[2020-08-12] MEDS: ASPIRIN 81 MG CHEWABLE TABLETS PO SCH (11:19)
[2020-08-12] MEDS: CEPHALEXIN MONOHYDRATE 500 MG CAPSULE (UD) PO SCH ×2 (11:20→22:50)
[2020-08-12] MEDS: PRENATAL VITAMINS W/ FOLIC ACID TABLET (FP) PO SCH (11:20)
[2020-08-12] MEDS: BUDESONIDE/FORMETEROL FUMARATE 80/4.5 mcg INHALER IH SCH ×2 (11:21→22:53)
[2020-08-12] MEDS: metFORMIN HCL 500 MG TABLET (FP) PO SCH (11:21)
[2020-08-12] MEDS: BACITRACIN 0.9 GM PACKET TP SCH ×3 (11:25→22:51)
[2020-08-12] MEDS: FLUTICASONE PROP 0.05% 16 GM NASAL SPRAY NS SCH ×2 (12:39→22:49)
[2020-08-12 14:40] LABS: HEMOGLOBIN 13.1 GM/dL (10.7-15.3); MCH 30.4 pg (25.7-33.7); MCHC 34.6 g/dl (32.0-36.0); MEAN CELL VOLUME 87.9 fl (80-96); MEAN PLT VOLUME 7.8 fl (7.5-11.1); PLATELET COUNT 564 K/MM3 (134-434); RBC 4.33 M/mm3 (3.60-5.2); RDW 13.5 % (11.6-15.6); WHITE BLOOD COUNT 9.3 K/mm3 (4.0-10.0)
[2020-08-12 14:44] LABS: CHLORIDE 96 mmol/L (98-107); SODIUM 132 mmol/L (136-145)
[2020-08-12 14:54] LABS: CALCIUM 9.4 mg/dL (8.5-10.1); SGPT/ALT 12 U/L (13-61)
[2020-08-12 14:55] LABS: ANION GAP 6 MMOL/L (8-16); CO2 30 mmol/L (21-32)
[2020-08-12 14:56] LABS: ALBUMIN 3.2 g/dl (3.4-5.0); ALK PHOS 164 U/L (45-117); BLOOD UREA NITROGEN 21.3 mg/dL (7-18)
[2020-08-12 14:58] LABS: BILIRUBIN,TOTAL 0.2 mg/dL (0.2-1); SGOT/AST 6 U/L (15-37); TOT PROT 8.2 g/dl (6.4-8.2)
[2020-08-12 15:03] LABS: GLUCOSE,RANDOM 619 mg/dL (74-106)
[2020-08-12] MEDS: IBUPROFEN 400 MG TABLET (FP) PO PRN (17:54)
[2020-08-12] MEDS: INSULIN SLIDING SCALE (NOVOLOG) 1 VIAL SQ SCH ×2 (20:59→23:40)
[2020-08-12] MEDS: MELATONIN 5 MG TABLETS PO SCH (22:50)
[2020-08-12] MEDS: THIAMINE HCL 100 MG TABLET (FP) PO SCH (22:50)
[2020-08-12] MEDS: METHOCARBAMOL 500 MG TABLET PO PRN (22:50)
[2020-08-13] MEDS: hydrOXYzine PAMOATE 25 MG CAPSULE (FP) PO SCH ×5 (05:41→23:05)
[2020-08-13] MEDS: INSULIN SLIDING SCALE (NOVOLOG) 1 VIAL SQ SCH ×4 (07:49→23:05)
[2020-08-13] MEDS: metFORMIN HCL 500 MG TABLET (FP) PO SCH (07:50)
[2020-08-13] MEDS ORDERED: METHADONE HCL 5 MG TABLET (FOR DETOX USE ONLY) ONE (09:13)
[2020-08-13] MEDS ORDERED: METHADONE HCL 10 MG TABLET (FOR DETOX USE ONLY) ONE (09:14)
[2020-08-13] MEDS ORDERED: METHADONE (DETOX) 20 MG, METHADONE (DETOX) 5 MG PO ONE (10:00)
[2020-08-13] MEDS: FLUTICASONE PROP 0.05% 16 GM NASAL SPRAY NS SCH ×2 (10:03→23:04)
[2020-08-13] MEDS: BUDESONIDE/FORMETEROL FUMARATE 80/4.5 mcg INHALER IH SCH ×2 (10:03→23:04)
[2020-08-13] MEDS: BACITRACIN 0.9 GM PACKET TP SCH ×2 (10:03→23:04)
[2020-08-13] MEDS: METHOCARBAMOL 500 MG TABLET PO PRN (10:05)
[2020-08-13] MEDS: IBUPROFEN 400 MG TABLET (FP) PO PRN (10:05)
[2020-08-13] MEDS: ASPIRIN 81 MG CHEWABLE TABLETS PO SCH (10:05)
[2020-08-13] MEDS: CEPHALEXIN MONOHYDRATE 500 MG CAPSULE (UD) PO SCH ×2 (10:06→23:04)
[2020-08-13] MEDS: PRENATAL VITAMINS W/ FOLIC ACID TABLET (FP) PO SCH (10:06)
[2020-08-13] MEDS: LISINOPRIL 20 MG TABLET PO SCH (10:07)
[2020-08-13 10:59] LABS: HIV INTERPRETATION NEGATIVE (NEGATIVE)
[2020-08-13] MEDS ORDERED: INSULIN (NOVOLOG) ASPART 100 UNITS/ML 10ML VIAL ONE ×3 (11:04→23:03)
[2020-08-13] MEDS: IBUPROFEN 600 MG TABLET (FP) PO PRN (17:40)
[2020-08-13] MEDS: THIAMINE HCL 100 MG TABLET (FP) PO SCH (23:03)
[2020-08-13] MEDS: MELATONIN 5 MG TABLETS PO SCH (23:04)
[2020-08-14] MEDS: metFORMIN HCL 500 MG TABLET (FP) PO SCH (06:20)
[2020-08-14] MEDS: hydrOXYzine PAMOATE 25 MG CAPSULE (FP) PO SCH ×5 (06:20→22:15)
[2020-08-14] MEDS: IBUPROFEN 600 MG TABLET (FP) PO PRN ×2 (06:23→22:15)
[2020-08-14] MEDS: INSULIN SLIDING SCALE (NOVOLOG) 1 VIAL SQ SCH ×4 (07:14→21:33)
[2020-08-14] MEDS ORDERED: INSULIN (NOVOLOG) ASPART 100 UNITS/ML 10ML VIAL ONE ×2 (07:14→16:43)
[2020-08-14] MEDS ORDERED: SODIUM PHOSPHATE/NA BIPHOS 133 ML ENEMA RC ONE (08:54)
[2020-08-14] MEDS ORDERED: COLLOIDAL OATMEAL 1 BAR EACH TP PRN (08:54)
[2020-08-14] MEDS ORDERED: METHADONE HCL 10 MG TABLET (FOR DETOX USE ONLY) PO ONE (10:00)
[2020-08-14] MEDS: BUDESONIDE/FORMETEROL FUMARATE 80/4.5 mcg INHALER IH SCH ×2 (10:53→22:18)
[2020-08-14] MEDS: CEPHALEXIN MONOHYDRATE 500 MG CAPSULE (UD) PO SCH ×2 (10:54→22:15)
[2020-08-14] MEDS: ASPIRIN 81 MG CHEWABLE TABLETS PO SCH (10:54)
[2020-08-14] MEDS: BACITRACIN 0.9 GM PACKET TP SCH ×2 (10:54→22:16)
[2020-08-14] MEDS: LISINOPRIL 20 MG TABLET PO SCH (10:54)
[2020-08-14] MEDS: PRENATAL VITAMINS W/ FOLIC ACID TABLET (FP) PO SCH (10:56)
[2020-08-14] MEDS: MAGNESIUM HYDROX 2400MG/30ML ORAL SUSPENSION 30 ML CUP PO PRN (10:58)
[2020-08-14] MEDS: ACETAMINOPHEN 325 MG TABLET (FP) PO PRN (10:59)
[2020-08-14] MEDS: FLUTICASONE PROP 0.05% 16 GM NASAL SPRAY NS SCH ×2 (12:33→22:16)
[2020-08-14] MEDS: SULFAMETHOXAZOLE/TRIMETHOPRIM 800MG/160MG D.S. TABLET PO SCH ×2 (14:07→22:15)
[2020-08-14] MEDS: METHOCARBAMOL 500 MG TABLET PO PRN (17:48)
[2020-08-14] MEDS: SODIUM PHOSPHATE/NA BIPHOS 133 ML ENEMA RC ONE ×2 (20:15→20:19)
[2020-08-14] MEDS: THIAMINE HCL 100 MG TABLET (FP) PO SCH (22:15)
[2020-08-14] MEDS: MELATONIN 5 MG TABLETS PO SCH (22:18)
[2020-08-15] MEDS: METHOCARBAMOL 500 MG TABLET PO PRN ×2 (03:53→10:31)
[2020-08-15] MEDS: hydrOXYzine PAMOATE 25 MG CAPSULE (FP) PO SCH ×5 (05:57→22:19)
[2020-08-15 06:07] LABS: SARS-CoV-2 NAA Not Detected (Not Detected)
[2020-08-15] MEDS: metFORMIN HCL 500 MG TABLET (FP) PO SCH (07:04)
[2020-08-15] MEDS: INSULIN SLIDING SCALE (NOVOLOG) 1 VIAL SQ SCH ×4 (08:09→22:23)
[2020-08-15] MEDS ORDERED: METHADONE HCL 5 MG TABLET (FOR DETOX USE ONLY) ONE (09:25)
[2020-08-15] MEDS ORDERED: METHADONE HCL 10 MG TABLET (FOR DETOX USE ONLY) ONE (09:25)
[2020-08-15] MEDS ORDERED: METHADONE (DETOX) 10 MG, METHADONE (DETOX) 5 MG PO ONE (10:00)
[2020-08-15] MEDS: FLUTICASONE PROP 0.05% 16 GM NASAL SPRAY NS SCH ×2 (10:30→22:20)
[2020-08-15] MEDS: BUDESONIDE/FORMETEROL FUMARATE 80/4.5 mcg INHALER IH SCH ×2 (10:30→22:19)
[2020-08-15] MEDS: CEPHALEXIN MONOHYDRATE 500 MG CAPSULE (UD) PO SCH ×2 (10:31→22:18)
[2020-08-15] MEDS: BACITRACIN 0.9 GM PACKET TP SCH ×2 (10:31→22:21)
[2020-08-15] MEDS: ASPIRIN 81 MG CHEWABLE TABLETS PO SCH (10:31)
[2020-08-15] MEDS: SULFAMETHOXAZOLE/TRIMETHOPRIM 800MG/160MG D.S. TABLET PO SCH ×2 (10:31→22:18)
[2020-08-15] MEDS: PRENATAL VITAMINS W/ FOLIC ACID TABLET (FP) PO SCH (10:32)
[2020-08-15] MEDS: IBUPROFEN 600 MG TABLET (FP) PO PRN (10:33)
[2020-08-15] MEDS: LISINOPRIL 20 MG TABLET PO SCH (10:38)
[2020-08-15] MEDS ORDERED: SODIUM PHOSPHATE/NA BIPHOS 133 ML ENEMA RC ONE (13:30)
[2020-08-15] MEDS: ACETAMINOPHEN 325 MG TABLET (FP) PO PRN (13:35)
[2020-08-15] MEDS ORDERED: INSULIN (NOVOLOG) ASPART 100 UNITS/ML 10ML VIAL ONE ×2 (17:00→23:14)
[2020-08-15] MEDS: THIAMINE HCL 100 MG TABLET (FP) PO SCH (22:18)
[2020-08-15] MEDS: MELATONIN 5 MG TABLETS PO SCH (22:19)
[2020-08-16] MEDS: IBUPROFEN 600 MG TABLET (FP) PO PRN ×3 (05:23→17:49)
[2020-08-16] MEDS: METHOCARBAMOL 500 MG TABLET PO PRN ×2 (05:23→17:51)
[2020-08-16] MEDS: hydrOXYzine PAMOATE 25 MG CAPSULE (FP) PO SCH ×5 (05:24→22:03)
[2020-08-16] MEDS: metFORMIN HCL 500 MG TABLET (FP) PO SCH (07:01)
[2020-08-16] MEDS: INSULIN SLIDING SCALE (NOVOLOG) 1 VIAL SQ SCH ×3 (08:23→16:35)
[2020-08-16] MEDS ORDERED: METHADONE HCL 10 MG TABLET (FOR DETOX USE ONLY) PO ONE (10:00)
[2020-08-16] MEDS: ASPIRIN 81 MG CHEWABLE TABLETS PO SCH (10:50)
[2020-08-16] MEDS: BACITRACIN 0.9 GM PACKET TP SCH ×2 (10:50→22:03)
[2020-08-16] MEDS: CEPHALEXIN MONOHYDRATE 500 MG CAPSULE (UD) PO SCH ×2 (10:56→22:03)
[2020-08-16] MEDS: LISINOPRIL 20 MG TABLET PO SCH (10:56)
[2020-08-16] MEDS: SULFAMETHOXAZOLE/TRIMETHOPRIM 800MG/160MG D.S. TABLET PO SCH ×2 (10:56→22:03)
[2020-08-16] MEDS: PRENATAL VITAMINS W/ FOLIC ACID TABLET (FP) PO SCH (10:57)
[2020-08-16] MEDS: FLUTICASONE PROP 0.05% 16 GM NASAL SPRAY NS SCH ×2 (10:57→22:04)
[2020-08-16] MEDS: BUDESONIDE/FORMETEROL FUMARATE 80/4.5 mcg INHALER IH SCH ×2 (10:57→22:04)
[2020-08-16] MEDS: THIAMINE HCL 100 MG TABLET (FP) PO SCH (22:03)
[2020-08-16] MEDS: MELATONIN 5 MG TABLETS PO SCH (22:04)
[2020-08-17] MEDS: INSULIN SLIDING SCALE (NOVOLOG) 1 VIAL SQ SCH ×5 (00:24→22:24)
[2020-08-17] MEDS ORDERED: METHADONE HCL 5 MG TABLET (FOR DETOX USE ONLY) PO ONE (06:00)
[2020-08-17] MEDS: metFORMIN HCL 500 MG TABLET (FP) PO SCH (06:11)
[2020-08-17] MEDS: hydrOXYzine PAMOATE 25 MG CAPSULE (FP) PO SCH ×5 (06:12→22:23)
[2020-08-17] MEDS: SULFAMETHOXAZOLE/TRIMETHOPRIM 800MG/160MG D.S. TABLET PO SCH ×2 (10:31→22:23)
[2020-08-17] MEDS: CEPHALEXIN MONOHYDRATE 500 MG CAPSULE (UD) PO SCH ×2 (10:31→22:23)
[2020-08-17] MEDS: ASPIRIN 81 MG CHEWABLE TABLETS PO SCH (10:31)
[2020-08-17] MEDS: BACITRACIN 0.9 GM PACKET TP SCH ×2 (10:31→22:24)
[2020-08-17] MEDS: FLUTICASONE PROP 0.05% 16 GM NASAL SPRAY NS SCH ×2 (10:32→22:24)
[2020-08-17] MEDS: BUDESONIDE/FORMETEROL FUMARATE 80/4.5 mcg INHALER IH SCH ×2 (10:32→22:24)
[2020-08-17] MEDS: PRENATAL VITAMINS W/ FOLIC ACID TABLET (FP) PO SCH (10:32)
[2020-08-17] MEDS: LISINOPRIL 20 MG TABLET PO SCH (10:32)
[2020-08-17] MEDS: IBUPROFEN 600 MG TABLET (FP) PO PRN ×2 (10:34→22:25)
[2020-08-17] MEDS: METHOCARBAMOL 500 MG TABLET PO PRN ×2 (10:34→22:24)
[2020-08-17] MEDS: ACETAMINOPHEN 325 MG TABLET (FP) PO PRN (14:02)
[2020-08-17] MEDS: THIAMINE HCL 100 MG TABLET (FP) PO SCH (22:27)
[2020-08-17] MEDS: MELATONIN 5 MG TABLETS PO SCH (22:27)
[2020-08-18] MEDS ORDERED: METHADONE HCL 5 MG TABLET (FOR DETOX USE ONLY) PO ONE (05:00)
[2020-08-18] MEDS: hydrOXYzine PAMOATE 25 MG CAPSULE (FP) PO SCH (06:19)
[2020-08-18] MEDS: metFORMIN HCL 500 MG TABLET (FP) PO SCH (06:19)
[2020-08-18] MEDS: METHOCARBAMOL 500 MG TABLET PO PRN (06:22)
[2020-08-18] MEDS: INSULIN SLIDING SCALE (NOVOLOG) 1 VIAL SQ SCH ×4 (07:13→23:13)
[2020-08-18] MEDS: BUDESONIDE/FORMETEROL FUMARATE 80/4.5 mcg INHALER IH SCH ×2 (10:23→23:13)
[2020-08-18] MEDS: LISINOPRIL 20 MG TABLET PO SCH (10:23)
[2020-08-18] MEDS: FLUTICASONE PROP 0.05% 16 GM NASAL SPRAY NS SCH ×2 (10:23→23:12)
[2020-08-18] MEDS: BACITRACIN 0.9 GM PACKET TP SCH ×2 (10:23→23:12)
[2020-08-18] MEDS: SULFAMETHOXAZOLE/TRIMETHOPRIM 800MG/160MG D.S. TABLET PO SCH ×2 (10:23→23:12)
[2020-08-18] MEDS: PRENATAL VITAMINS W/ FOLIC ACID TABLET (FP) PO SCH (10:23)
[2020-08-18] MEDS: ASPIRIN 81 MG CHEWABLE TABLETS PO SCH (10:23)
[2020-08-18] MEDS: CEPHALEXIN MONOHYDRATE 500 MG CAPSULE (UD) PO SCH ×2 (10:23→23:12)
[2020-08-18] MEDS: IBUPROFEN 600 MG TABLET (FP) PO PRN (13:40)
[2020-08-18] MEDS ORDERED: METHOCARBAMOL 500 MG TABLET PO ONE (13:51)
[2020-08-18] MEDS: MAGNESIUM HYDROX 2400MG/30ML ORAL SUSPENSION 30 ML CUP PO PRN (13:56)
[2020-08-18] MEDS ORDERED: INSULIN (NOVOLOG) ASPART 100 UNITS/ML 10ML VIAL ONE (17:34)
[2020-08-18] MEDS: THIAMINE HCL 100 MG TABLET (FP) PO SCH (23:13)
[2020-08-18] MEDS: MELATONIN 5 MG TABLETS PO SCH (23:13)
[2020-08-19] MEDS: metFORMIN HCL 500 MG TABLET (FP) PO SCH (06:34)
[2020-08-19] MEDS: IBUPROFEN 600 MG TABLET (FP) PO PRN (06:35)
[2020-08-19] MEDS: INSULIN SLIDING SCALE (NOVOLOG) 1 VIAL SQ SCH (06:50)
[2020-08-19 09:18] VITALS: BP 122/71; PULSE 89; TEMP 96.6
[2020-08-19] MEDS ORDERED: METHOCARBAMOL 500 MG TABLET PO ONE (09:36)
[2020-08-19] MEDS: LISINOPRIL 20 MG TABLET PO SCH (10:03)
[2020-08-19] MEDS: SULFAMETHOXAZOLE/TRIMETHOPRIM 800MG/160MG D.S. TABLET PO SCH (10:03)
[2020-08-19] MEDS: ASPIRIN 81 MG CHEWABLE TABLETS PO SCH (10:03)
[2020-08-19] MEDS: BUDESONIDE/FORMETEROL FUMARATE 80/4.5 mcg INHALER IH SCH (10:04)
[2020-08-19] MEDS: PRENATAL VITAMINS W/ FOLIC ACID TABLET (FP) PO SCH (10:04)
[2020-08-19] MEDS: CEPHALEXIN MONOHYDRATE 500 MG CAPSULE (UD) PO SCH (10:04)
[2020-08-19] MEDS: FLUTICASONE PROP 0.05% 16 GM NASAL SPRAY NS SCH (10:04)
[2020-08-19] MEDS: BACITRACIN 0.9 GM PACKET TP SCH (10:04)
[2020-08-19] MEDS: MAGNESIUM HYDROX 2400MG/30ML ORAL SUSPENSION 30 ML CUP PO PRN (10:06)
== END 2020-08-19 11:55 | disposition home or self-care (01) | DRG 773 ==
LOC: YASAS 08:24 → Y6N 10:37
PROVIDERS: ADMIT Allergy & Immunology; ATTEND Allergy & Immunology
PROC: HZ2ZZZZ Detoxification Services for Substance Abuse Treatment (ICD-10-PCS; principal; 2020-08-12)
DX: F11.23 Opioid dependence with withdrawal (principal); F10.230 Alcohol dependence with withdrawal, uncomplicated; F14.20 Cocaine dependence, uncomplicated; F17.210 Nicotine dependence, cigarettes, uncomplicated; F25.9 Schizoaffective disorder, unspecified; F31.9 Bipolar disorder, unspecified; F41.9 Anxiety disorder, unspecified; I10 Essential (primary) hypertension; E11.65 Type 2 diabetes mellitus with hyperglycemia; Z79.4 Long term (current) use of insulin; J45.909 Unspecified asthma, uncomplicated; A53.0 Latent syphilis, unspecified as early or late; R74.8 Abnormal levels of other serum enzymes; Z89.421 Acquired absence of other right toe(s)
CPT/HCPCS: 36415; 80053; 82962; 85027; 86593; 86780; 87070; 87077; 87186; 87205; 87389; C9803; J0735; U0003; U0005